=== PATIENT | female | born 1975 | race Caucasian/White ===

== ENCOUNTER 2017-05-17 08:35 | Emergency (ER) | payer OTHER ==
[2017-05-17] MEDS ORDERED: METHYLPREDNISOLONE 125 MG INJ ONE (09:37)
[2017-05-17] MEDS ORDERED: TRAMADOL HCL 50 MG TAB ONE (09:38)
--- NOTE | 2017-05-17 09:53 | RAD REPORT ---
EXAM DESCRIPTION: CT - Head Brain Wo Cont - 05/17/2017 9:39 am CLINICAL HISTORY: Headache COMPARISON: November 2016 TECHNIQUE: Computed axial tomography of the head was obtained. IV contrast was not requested. All CT scans are performed using dose optimization technique as appropriate and may include automated exposure control or mA/KV adjustment according to patient size. FINDINGS: An intracranial bleed is not seen . The ventricles are normal in caliber. No extra-axial fluid collection is noted. Moderate low-density within periventricular, deep and subco rtical white matter likely representing demyelinating plaques related to multiple sclerosis Moderate opacification of the ethmoid sinus is present. The mastoids are clear IMPRESSION: No acute intracranial abnormality is seen. If patient's symptoms persist MRI of the bra in would be recommended. Moderate chronic ethmoid sinusitis
--- NOTE | 2017-05-17 11:38 | ER ---
Nurse's Notes [facility] Name: Tana Rao Age: 42 yrs Sex: Female : 1975 Arrival Date: 05/17/2017 Time: 08:45 Bed 10 Private MD: Diagnosis: Headache Presentation: 05/17 08:45 Presenting complaint: EMS states: called for a pt complaining of headache, pressure hj like pain in the R scientology down to the neck, pressure behind the eye, denies nausea and vomiting; BP- 127/88; HR- 77; O2 sat- 100%; pain is 10/10; A\T\Ox4; denies tingling and numbness;. Transition of care: patient was not received from another setting of care. Onset of symptoms was May 17, 2017. Care prior to arrival: None. 08:45 Method Of Arrival: Ambulatory 08:45 Acuity: AMY 3 hj Triage Assessment: 08:52 Headache History: The patient has had previous headaches. General: Appears in no hj apparent distress. uncomfortable, Behavior is cooperative, appropriate for age, anxious, crying. Pain: Complains of pain in left base of the skull and right temporal area Pain currently is 10 out of 10 on a pain scale. Pain began Also complains of inability to work, inability to perform activities of daily living. Neuro: Level of Consciousness is awake, alert, obeys commands, Oriented to person, place, time, situation, Appropriate for age. 08:52 EENT: No signs and/or symptoms were reported regarding the EENT system. Cardiovascular: hj Capillary refill < 3 seconds Patient's skin is warm and dry. Respiratory: Airway is patent Respiratory effort is even, unlabored, Respiratory pattern is regular, symmetrical. GI: No signs and/or symptoms were reported involving the gastrointestinal system. : No signs and/or symptoms were reported regarding the genitourinary system. Derm: No signs and/or symptoms reported regarding the dermatologic system. Musculoskeletal: No signs and/or symptoms reported regarding the musculoskeletal system. 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 hj Historical: - Allergies: 08:51 Demerol; hj 08:51 GABAPENTIN; hj 08:51 ketorolac tromethamine; hj 08:51 Lyrica; hj 08:51 pregabalin; hj 08:51 sulfamethoxazole-trimethoprim; hj 08:51 Tramadol HCl; hj - Home Meds: 08:51 amitriptyline 25 mg Oral tab 1 tab once daily [Active]; clorazepate dipotassium Oral hj [Active]; Cyclobenzaprine Oral [Active]; esomeprazole magnesium Oral [Active]; gabapentin Oral [Active]; Mirtazapine Oral [Active]; tizanidine Oral [Active]; - PMHx: 08:51 Anxiety; Bipolar disorder; BRAIN , MUSCLE, DISC, NERVE, AND AUTOIMMUNE DISEASE; Chronic hj pain; Degenerative disc disease; Depression; Fibromyalgia; Hypothyroidism; Multiple Sclerosis; Rheumatoid Arthritis; UTI; - PSHx: 08:51 Hysterectomy; hj - Immunization history:: Adult Immunizations up to date. - Social history:: Smoking status: Patient/guardian denies using tobacco, Patient/guardian denies using alcohol. Screenin:54 Abuse screen: Denies threats or abuse. Denies injuries from another. Nutritional hj screening: No deficits noted. Tuberculosis screening: No symptoms or risk factors identified. Fall Risk None identified. Assessment: 08:57 Reassessment: see triage assessment;. hj 09:34 Reassessment: Patient and/or family updated on plan of care and expected duration. Pain hj level reassessed. Patient is alert, oriented x 3, equal unlabored respirations, skin warm/dry/pink. wheeled to CT;. 10:30 General: Appears in no apparent distress. uncomfortable, Behavior is calm, cooperative, aj1 appropriate for age. Pain: Complains of pain in right temporal area Pain does not radiate. Pain currently is 7 out of 10 on a pain scale. 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 Full function Gait is steady, Reports headache. Cardiovascular: Patient's skin is warm and dry. Respiratory: Airway is patent Respiratory effort is even, unlabored, Respiratory pattern is regular, symmetrical. GI: No signs and/or symptoms were reported involving the gastrointestinal system. : No signs and/or symptoms were reported regarding the genitourinary system. EENT: No signs and/or symptoms were reported regarding the EENT system. Derm: No signs and/or symptoms reported regarding the dermatologic system. Skin is pink, warm \T\ dry. normal. Musculoskeletal: No signs and/or symptoms reported regarding the musculoskeletal system. Circulation, motion, and sensation intact. 11:27 Reassessment: Patient appears in no apparent distress at this time. Patient and/or iw family updated on plan of care and expected duration. Pain level reassessed. pt ambulated from ER bed 15 to room 10, steady gait. 11:50 Reassessment: Patient appears in no apparent distress at this time. Patient and/or iw family updated on plan of care and expected duration. Pain level reassessed. Vital Signs: 08:55 BP 137 / 102; Pulse 77; Resp 18; Temp 98.1(TE); Pulse Ox 100% on R/A; Weight 54.43 kg; hj Height 5 ft. 7 in. (170.18 cm); Pain 10/10; 10:49 BP 149 / 98; Pulse 58; Resp 15; Pulse Ox 100% on R/A; mh5 08:55 Body Mass Index 18.79 (54.43 kg, 170.18 cm) ED Course: 08:45 Patient arrived in ED. hj 08:45 Mohsen Carlton MD is Attending Physician. kdr 08:48 Triage completed. hj 08:54 Arm band placed on right wrist. hj 08:55 Patient has correct armband on for positive identification. Bed in low position. Call light in reach. Side rails up X 1. 09:16 Yony Archuleta RN is Primary Nurse. hj 09:38 CT completed. Patient tolerated procedure well. Patient moved to CT via wheelchair. jg1 Patient moved back from CT. 11:27 Primary Nurse role handed off by Yony Archuleta RN iw 11:27 Alisa Edmondson, ADAM is Primary Nurse. iw 11:54 No provider procedures requiring assistance completed. Patient did not have IV access iw during this emergency room visit. Administered Medications: 09:14 Drug: SOLU-Medrol 125 mg Route: IM; Site: right deltoid; hj 09:23 Follow up: Response: No adverse reaction hj 09:27 Not Given (Patient Refused; allergic to the med; notified): traMADol 100 mg PO once hj 11:54 Drug: Leonidas 10 mg-325 mg 1 tabs Route: PO; iw Outcome: 11:37 Discharge ordered by . kdr 11:54 Discharged to home ambulatory. iw 11:54 Condition: good 11:54 Discharge instructions given to patient, Instructed on discharge instructions, follow up and referral plans. medication usage, Demonstrated understanding of instructions, follow-up care, medications, Prescriptions given X 1. 11:55 Patient left the ED. iw Signatures: Jami Clayton RN RN aj1 Mohsen Carlton MD MD kdr Garcia, Jessica jg1 Williams, Irene, RN RN Yony Archuleta RN RN Myriam [facility]
--- NOTE | 2017-05-17 11:38 | EDPHYS ---
Physician Documentation [facility] Name: Tana Rao Age: 42 yrs Sex: Female : 1975 Arrival Date: 05/17/2017 Time: 08:45 Bed 10 Private MD: ED Physician Mohsen Carlton HPI: 05/17 12:14 This 42 yrs old Female presents to ER via Ambulatory with complaints of kdr Headache. 12:14 The patient complains of pain to the right eye, right confucianism, right temporal area and kdr right side of forehead. The patient describes the headache as aching, constant, a pressure, unrelenting. Onset: The symptoms/episode began/occurred gradually, 3 day(s) ago. Associated signs and symptoms: Pertinent positives: blurred vision, Pertinent negatives: altered mental status, dizziness, fever, malaise, nausea, neck stiffness, paresthesias, Photophobia rash, sinus congestion, sinus tenderness, weakness, vertigo. Severity of symptoms: At its worst the pain was moderate, just prior to arrival, in the emergency department the pain is unchanged. Headache History: The patient has had previous headaches and this one is similar to previous episodes. The symptoms are alleviated by nothing. the symptoms are aggravated by lights, movement, noise. The patient has experienced similar episodes in the past, multiple times. The patient has not recently seen a physician. 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 hj Historical: - Allergies: 08:51 Demerol; hj 08:51 GABAPENTIN; hj 08:51 ketorolac tromethamine; hj 08:51 Lyrica; hj 08:51 pregabalin; hj 08:51 sulfamethoxazole-trimethoprim; hj 08:51 Tramadol HCl; hj - Home Meds: 08:51 amitriptyline 25 mg Oral tab 1 tab once daily [Active]; clorazepate dipotassium Oral hj [Active]; Cyclobenzaprine Oral [Active]; esomeprazole magnesium Oral [Active]; gabapentin Oral [Active]; Mirtazapine Oral [Active]; tizanidine Oral [Active]; - PMHx: 08:51 Anxiety; Bipolar disorder; BRAIN , MUSCLE, DISC, NERVE, AND AUTOIMMUNE DISEASE; Chronic hj pain; Degenerative disc disease; Depression; Fibromyalgia; Hypothyroidism; Multiple Sclerosis; Rheumatoid Arthritis; UTI; - PSHx: 08:51 Hysterectomy; hj - Immunization history:: Adult Immunizations up to date. - Social history:: Smoking status: Patient/guardian denies using tobacco, Patient/guardian denies using alcohol. ROS: 12:14 Constitutional: Negative for fever, chills, and weight loss, Eyes: Negative for injury, kdr pain, redness, and discharge, ENT: Negative for injury, pain, and discharge, Neck: Negative for injury, pain, and swelling, Cardiovascular: Negative for chest pain, palpitations, and edema, Respiratory: Negative for shortness of breath, cough, wheezing, and pleuritic chest pain, Abdomen/GI: Negative for abdominal pain, nausea, vomiting, diarrhea, and constipation, Back: Negative for injury and pain, : Negative for injury, bleeding, discharge, and swelling, MS/Extremity: Negative for injury and deformity, Skin: Negative for injury, rash, and discoloration, Psych: Negative for depression, anxiety, suicide ideation, homicidal ideation, and hallucinations, Allergy/Immunology: Negative for hives, rash, and allergies, Endocrine: Negative for neck swelling, polydipsia, polyuria, polyphagia, and marked weight changes, Hematologic/Lymphatic: Negative for swollen nodes, abnormal bleeding, and unusual bruising. 12:14 Neuro: Positive for headache, Negative for altered mental status, dizziness, gait disturbance, loss of consciousness, numbness, seizure activity, speech changes, syncope, near syncope, tingling, tinnitus, tremor, visual changes, weakness. Exam: 12:14 Constitutional: This is a well developed, well nourished patient who is awake, alert, kdr and in no acute distress. Head/Face: Normocephalic, atraumatic. Eyes: Pupils equal round and reactive to light, extra-ocular motions intact. Lids and lashes normal. Conjunctiva and sclera are non-icteric and not injected. Cornea within normal limits. Periorbital areas with no swelling, redness, or edema. Neck: Trachea midline, no thyromegaly or masses palpated, and no cervical lymphadenopathy. Supple, full range of motion without nuchal rigidity, or vertebral point tenderness. No Meningismus. Chest/axilla: Normal chest wall appearance and motion. Nontender with no deformity. No lesions are appreciated. Cardiovascular: Regular rate and rhythm with a normal S1 and S2. No gallops, murmurs, or rubs. Normal PMI, no JVD. No pulse deficits. Respiratory: Lungs have equal breath sounds bilaterally, clear to auscultation and percussion. No rales, rhonchi or wheezes noted. No increased work of breathing, no retractions or nasal flaring. Abdomen/GI: Soft, non-tender, with normal bowel sounds. No distension or tympany. No guarding or rebound. No evidence of tenderness throughout. Back: No spinal tenderness. No costovertebral tenderness. Full range of motion. Skin: Warm, dry with normal turgor. Normal color with no rashes, no lesions, and no evidence of cellulitis. MS/ Extremity: Pulses equal, no cyanosis. Neurovascular intact. Full, normal range of motion. Neuro: Awake and alert, GCS 15, oriented to person, place, time, and situation. Cranial nerves II-XII grossly intact. Motor strength 5/5 in all extremities. Sensory grossly intact. Cerebellar exam normal. Normal gait. Psych: Awake, alert, with orientation to person, place and time. Behavior, mood, and affect are within normal limits. Vital Signs: 08:55 BP 137 / 102; Pulse 77; Resp 18; Temp 98.1(TE); Pulse Ox 100% on R/A; Weight 54.43 kg; Height 5 ft. 7 in. (170.18 cm); Pain 10/10; 10:49 BP 149 / 98; Pulse 58; Resp 15; Pulse Ox 100% on R/A; mh5 08:55 Body Mass Index 18.79 (54.43 kg, 170.18 cm) MDM: 11:37 Patient medically screened. kdr 12:14 Data reviewed: vital signs, nurses notes, radiologic studies. Counseling: I had a kdr detailed discussion with the patient and/or guardian regarding: the historical points, exam findings, and any diagnostic results supporting the discharge/admit diagnosis, radiology results, the need for outpatient follow up. 05/17 09:14 Order name: CT Head Brain wo Cont kdr 05/17 09:53 Order name: CT; Complete Time: 10:15 EDMS Administered Medications: 09:14 Drug: SOLU-Medrol 125 mg Route: IM; Site: right deltoid; 09:23 Follow up: Response: No adverse reaction 09:27 Not Given (Patient Refused; allergic to the med; notified): traMADol 100 mg PO once hj 11:54 Drug: [place] 10 mg-325 mg 1 tabs Route: PO; Disposition: 05/17/17 11:37 Discharged to Home. Impression: Headache. - Condition is Stable. - Discharge Instructions: General Headache Without Cause. - Prescriptions for Ibuprofen 800 mg Oral Tablet - take 1 tablet by ORAL route every 8 hours As needed take with food; 12 tablet. - Medication Reconciliation Form, Thank You Letter, Antibiotic Education, Prescription Opioid Use form. - Follow up: Private Physician; When: 2 - 3 days; Reason: If symptoms return, Further diagnostic work-up, Recheck today's complaints, Continuance of care, Re-evaluation by your physician. - Problem is an acute exacerbation. - Symptoms have improved. Signatures: Dispatcher [employer] EDMS Mohsen Carlton MD MD kdr Williams, Irene, ADAM RN Yony Archuleta RN RN
[2017-05-17 12:06] VITALS: TEMP 98.1; O2SAT 100
[2017-05-17 12:08] VITALS: BP 149/98
[2017-05-17] MEDS ORDERED: HYDROCODONE/APAP 10/325 TAB ONE (12:08)
== END 2017-05-17 11:55 | disposition home or self-care (01) ==
LOC: ER 08:35
DX: R51 Headache (principal); F31.9 Bipolar disorder, unspecified; F41.9 Anxiety disorder, unspecified; Z88.2 Allergy status to sulfonamides; Z88.5 Allergy status to narcotic agent; Z88.8 Allergy status to other drugs, medicaments and biological substances
CPT/HCPCS: 70450; 96372; 99284; J2930

== ENCOUNTER 2017-06-13 20:52 | Emergency (ER) | payer OTHER ==
--- NOTE | 2017-06-13 21:43 | RAD REPORT ---
EXAM DESCRIPTION: CT - Head Brain Wo Cont - 06/13/2017 9:33 pm CLINICAL HISTORY: Headache, altered consciousness. COMPARISON: 05/17/2017 TECHNIQUE: All CT scans are performed using dose optimization technique as appropriate and may inclu de automated exposure control or mA/KV adjustment according to patient size. FINDINGS: No intracranial hemorrhage, hydrocephalus or extra-axial fluid collection.No areas of brai n edema or evidence of midline shift. Mild mucosal thickening seen in the ethmoid and sphenoid sinuses. The paranasal sinuses and mastoids otherwise clear. The calvarium is intact. IMPRESSION: No acute intracranial abnormality.
[2017-06-13] MEDS ORDERED: NA CHLORIDE 0.9% 1,000 ML ONE (22:01)
[2017-06-13 22:31] LABS: Absolute Lymphocytes (CBC) 1.7 K/uL (0.7-4.9); Absolute Monocytes 0.4 K/uL (0.1-1.3); Absolute Neutrophil 4.1 K/uL (1.8-8.0); Basophils % 0.7 % (0-1.3); Eosinophils % 5.1 % (0-4.4); Lymphocytes % 25.4 % (15.3-44.8); MCH 23.8 pg (27.0-35.0); MCV 73.1 fL (80-100); MPV 7.7 fL (7.6-11.3); Monocytes % 6.3 % (3.3-12.3); RBC Red Blood Cell Count 5.47 M/uL (3.86-4.86)
[2017-06-13 22:39] LABS: Bicarbonate 32 mEq/L (21-31); Glucose Level 110 mg/dL (65-120); Potassium 4.1 mEq/L (3.6-5.0); Sodium Level 141 mEq/L (135-145)
[2017-06-13 22:45] LABS: ALT/SGPT 14 IU/L (10-60); AST/SGOT 20 IU/L (10-42); Albumin 3.9 g/dL (3.2-5.5); Alkaline Phosphatase 95 IU/L (42-121); BUN Blood Urea Nitrogen 10 mg/dL (6-20); Bilirubin Direct < 0.1 mg/dL (0-0.2); Bilirubin Total 0.4 mg/dL (0.3-1.2); Glomerular Filtration Rate 77 mL/min (=/>90)
[2017-06-13 22:46] LABS: Protime INR 0.94
[2017-06-13 23:04] LABS: Alcohol Serum/Plasma < 10 mg/dl; Salicylates Level < 4.0 mg/dl (<30)
--- NOTE | 2017-06-13 23:33 | EDPHYS ---
Physician Documentation [facility] Name: Tana Rao Age: 42 yrs Sex: Female : 1975 Arrival Date: 06/13/2017 Time: 20:54 Bed 23 Private MD: ED Physician Celestine Tafoya HPI: 06/13 21:13 This 42 yrs old Female presents to ER via EMS with complaints of headache and angela syncope. 21:13 The patient complains of pain to the forehead, left temporal area and right temporal angela area. The patient describes the headache as aching. Onset: The symptoms/episode began/occurred just prior to arrival. hx ms. The patient presents with trouble concentrating. Onset: The symptoms/episode began/occurred 2 day(s) ago. Possible causes: unknown. Associated signs and symptoms: The patient has no apparent associated signs or symptoms. Severity of symptoms: At its worst the pain was mild, moderate, in the emergency department the pain is unchanged. Headache History: The patient has had previous headaches and this one is similar to previous episodes. 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 - Hysterectomy tl3 Historical: - Allergies: 21:10 Demerol; tl3 21:10 GABAPENTIN; tl3 21:10 ketorolac tromethamine; tl3 21:10 Lyrica; tl3 21:10 pregabalin; tl3 21:10 sulfamethoxazole-trimethoprim; tl3 21:10 Tramadol HCl; tl3 - Home Meds: 21:10 amitriptyline 25 mg Oral tab 1 tab once daily [Active]; clorazepate dipotassium Oral tl3 [Active]; Cyclobenzaprine Oral [Active]; esomeprazole magnesium Oral [Active]; gabapentin Oral [Active]; Mirtazapine Oral [Active]; tizanidine Oral [Active]; - PMHx: 21:10 Anxiety; Bipolar disorder; BRAIN , MUSCLE, DISC, NERVE, AND AUTOIMMUNE DISEASE; Chronic tl3 pain; Degenerative disc disease; Depression; Fibromyalgia; Hypothyroidism; Multiple Sclerosis; Rheumatoid Arthritis; UTI; - PSHx: 21:10 Hysterectomy; tl3 - Immunization history:: Adult Immunizations unknown. - Social history:: Smoking status: unknown Patient/guardian denies using street drugs. - Family history:: not pertinent. ROS: 21:13 Constitutional: Negative for fever, chills, and weight loss, Eyes: Negative for injury, angela pain, redness, and discharge, ENT: Negative for injury, pain, and discharge, Neck: Negative for injury, pain, and swelling, Cardiovascular: Negative for chest pain, palpitations, and edema, Respiratory: Negative for shortness of breath, cough, wheezing, and pleuritic chest pain, Abdomen/GI: Negative for abdominal pain, nausea, vomiting, diarrhea, and constipation, Back: Negative for injury and pain, : Negative for injury, bleeding, discharge, and swelling, MS/Extremity: Negative for injury and deformity, Skin: Negative for injury, rash, and discoloration, Psych: Negative for depression, anxiety, suicide ideation, homicidal ideation, and hallucinations, Allergy/Immunology: Negative for hives, rash, and allergies, Endocrine: Negative for neck swelling, polydipsia, polyuria, polyphagia, and marked weight changes. 21:13 Neuro: Positive for headache, weakness. Exam: 21:13 Constitutional: This is a well developed, well nourished patient who is awake, alert, angela and in no acute distress. Head/Face: Normocephalic, atraumatic. Eyes: Pupils equal round and reactive to light, extra-ocular motions intact. Lids and lashes normal. Conjunctiva and sclera are non-icteric and not injected. Cornea within normal limits. Periorbital areas with no swelling, redness, or edema. ENT: Nares patent. No nasal discharge, no septal abnormalities noted. Tympanic membranes are normal and external auditory canals are clear. Oropharynx with no redness, swelling, or masses, exudates, or evidence of obstruction, uvula midline. Mucous membranes moist. Neck: Trachea midline, no thyromegaly or masses palpated, and no cervical lymphadenopathy. Supple, full range of motion without nuchal rigidity, or vertebral point tenderness. No Meningismus. Chest/axilla: Normal chest wall appearance and motion. Nontender with no deformity. No lesions are appreciated. Cardiovascular: Regular rate and rhythm with a normal S1 and S2. No gallops, murmurs, or rubs. Normal PMI, no JVD. No pulse deficits. Respiratory: Lungs have equal breath sounds bilaterally, clear to auscultation and percussion. No rales, rhonchi or wheezes noted. No increased work of breathing, no retractions or nasal flaring. Abdomen/GI: Soft, non-tender, with normal bowel sounds. No distension or tympany. No guarding or rebound. No evidence of tenderness throughout. Back: No spinal tenderness. No costovertebral tenderness. Full range of motion. Skin: Warm, dry with normal turgor. Normal color with no rashes, no lesions, and no evidence of cellulitis. MS/ Extremity: Pulses equal, no cyanosis. Neurovascular intact. Full, normal range of motion. 21:13 Neuro: Orientation: is normal, appropriate for stated age, no acute changes, Mentation: is normal, appropriate for stated age, no acute changes, Memory: immediate memory is intact, remote memory is intact. recent memory is intact, Cranial nerves: is grossly normal based on the patient's age, no acute changes, CN I not tested, Cerebellar function: unable to test, Motor: strength is normal, Gait: not tested. seizure activity, is not displayed by the patient. Vital Signs: 21:10 BP 133 / 94; Pulse 84; Resp 18; Pulse Ox 100% ; tl3 22:23 BP 129 / 99; Pulse 81; Resp 18; Pulse Ox 100% ; tl3 23:59 BP 128 / 87; Pulse 94; Resp 18; Pulse Ox 100% on R/A; tl3 06/14 01:04 BP 128 / 74; Pulse 82; Resp 16; Pulse Ox 99% ; tl3 MDM: 06/13 20:55 Patient medically screened. [facility] 21:13 Data reviewed: vital signs, nurses notes, lab test result(s), EKG, radiologic studies, [facility] CT scan. 06/13 21:13 Order name: Acetaminophen; Complete Time: 23:29 [facility] 06/13 21:13 Order name: Basic Metabolic Panel; Complete Time: 23:29 [facility] 06/13 21:13 Order name: CBC with Diff; Complete Time: 23:29 [facility] 06/13 21:13 Order name: ETOH Level; Complete Time: 23:29 [facility] 06/13 21:13 Order name: Hepatic Function; Complete Time: 23:29 [facility] 06/13 21:13 Order name: PT-INR; Complete Time: 23:29 [facility] 06/13 21:13 Order name: Ptt, Activated; Complete Time: 23:29 [facility] 06/13 21:13 Order name: Salicylate; Complete Time: 23:29 [facility] 06/13 21:13 Order name: Urine Drug Screen [facility] 06/13 21:13 Order name: CT Head Brain wo Cont; Complete Time: 22:31 [facility] 06/14 00:20 Order name: Urine Dipstick--Ancillary (enter results) em1 06/13 21:13 Order name: EKG; Complete Time: 21:14 [facility] 06/13 21:13 Order name: EKG - Nurse/Tech; Complete Time: 22:21 [facility] 06/13 21:13 Order name: IV Saline Lock; Complete Time: 22:00 [facility] 06/13 21:13 Order name: Labs collected and sent; Complete Time: 22:00 [facility] 06/13 21:13 Order name: Urine Dipstick-Ancillary (obtain specimen); Complete Time: 00:20 [facility] Administered Medications: 22:20 Drug: NS 0.9% 1000 ml Route: IV; Rate: 1 bolus; Site: right wrist; tl3 06/14 00:00 Follow up: IV Status: Completed infusion; IV Intake: 1000ml tl3 01:02 Drug: Rocephin - (cefTRIAXone) 1 grams Route: IVPB; Infused Over: 5 mins; Site: right tl3 wrist; 01:12 Follow up: IV Status: Completed infusion; IV Intake: 20ml tl3 Disposition: 06/13/17 23:32 Discharged to Home. Impression: Headache, Weakness, Multiple sclerosis, Urinary tract infection, site not specified. - Condition is Stable. - Discharge Instructions: General Headache Without Cause, Bipolar Disorder, Urinary Tract Infection, Weakness, Fatigue, Weakness, [id number], General Headache Without Cause, [id number]. - Prescriptions for Motrin IB 200 mg Oral Tablet - take 2 tablet by ORAL route every 6 hours As needed as needed with food; 2 tablet. Cipro 250 mg Oral Tablet - take 1 tablet by ORAL route every 12 hours; 14 tablet. - Medication Reconciliation Form, Thank You Letter, Antibiotic Education, Prescription Opioid Use form. - Follow up: Private Physician; When: 2 - 3 days; Reason: Recheck today's complaints, Continuance of care, Re-evaluation by your physician. Follow up: Ivan Cai; When: 2 - 3 days; Reason: Recheck today's complaints, Re-evaluation by your physician. - Problem is new. - Symptoms have improved. Signatures: Dispatcher [employer] EDMS Michelet, Celestine, MD MD angela [place], Karli, RN RN tl3
--- NOTE | 2017-06-13 23:33 | ER ---
Nurse's Notes [facility] Name: Tana Rao Age: 42 yrs Sex: Female : 1975 Arrival Date: 06/13/2017 Time: 20:54 Bed 23 Private MD: Diagnosis: Headache;Weakness;Multiple sclerosis;Urinary tract infection, site not specified Presentation: 06/13 20:00 Presenting complaint: EMS states: pt was found on the sidewalk outside of an elementary [employer] [place], pt stated that she had right sided head pain that now has become generalized body pain. Transition of care: patient was not received from another setting of care. Onset of symptoms was June 13, 2017. Initial Sepsis Screen: Does the patient meet any 2 criteria? No. Patient's initial sepsis screen is negative. Does the patient have a suspected source of infection? No. Patient's initial sepsis screen is negative. Care prior to arrival: None. 20:00 Method Of Arrival: EMS: [facility] tl3 20:00 Acuity: AMY 3 tl3 Triage Assessment: 21:10 General: Appears uncomfortable, slender, unkempt, Behavior is anxious, restless. Pain: tl3 Complains of pain in generalized body pain. EENT: No signs and/or symptoms were reported regarding the EENT system. Neuro: Level of Consciousness is awake, alert, obeys commands. Cardiovascular: Heart tones S1 S2 present. Respiratory: Airway is patent Trachea midline Respiratory effort is even, unlabored, Respiratory pattern is regular, symmetrical. GI: No signs and/or symptoms were reported involving the gastrointestinal system. : No signs and/or symptoms were reported regarding the genitourinary system. Derm: No signs and/or symptoms reported regarding the dermatologic system. Derm: palms of hands are dirty. Musculoskeletal: No signs and/or symptoms reported regarding the musculoskeletal system. 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 - Hysterectomy tl3 Historical: - Allergies: 21:10 Demerol; tl3 21:10 GABAPENTIN; tl3 21:10 ketorolac tromethamine; tl3 21:10 Lyrica; tl3 21:10 pregabalin; tl3 21:10 sulfamethoxazole-trimethoprim; tl3 21:10 Tramadol HCl; tl3 - Home Meds: 21:10 amitriptyline 25 mg Oral tab 1 tab once daily [Active]; clorazepate dipotassium Oral tl3 [Active]; Cyclobenzaprine Oral [Active]; esomeprazole magnesium Oral [Active]; gabapentin Oral [Active]; Mirtazapine Oral [Active]; tizanidine Oral [Active]; - PMHx: 21:10 Anxiety; Bipolar disorder; BRAIN , MUSCLE, DISC, NERVE, AND AUTOIMMUNE DISEASE; Chronic tl3 pain; Degenerative disc disease; Depression; Fibromyalgia; Hypothyroidism; Multiple Sclerosis; Rheumatoid Arthritis; UTI; - PSHx: 21:10 Hysterectomy; tl3 - Immunization history:: Adult Immunizations unknown. - Social history:: Smoking status: unknown Patient/guardian denies using street drugs. - Family history:: not pertinent. Screenin:24 Abuse screen: Denies threats or abuse. Nutritional screening: No deficits noted. tl3 Tuberculosis screening: No symptoms or risk factors identified. Fall Risk None identified. Assessment: 21:16 Reassessment: No changes from previously documented assessment. Patient is alert, tl3 oriented x 3, equal unlabored respirations, skin warm/dry/pink. Dr Tafyoa at bedside discussing POC. 22:24 Reassessment: No changes from previously documented assessment. Patient is alert, tl3 oriented x 3, equal unlabored respirations, skin warm/dry/pink. pt eating and drinking without difficulty awaiting labs. 23:59 Reassessment: Patient appears in no apparent distress at this time. No changes from tl3 previously documented assessment. Patient and/or family updated on plan of care and expected duration. Pain level reassessed. Patient is alert, oriented x 3, equal unlabored respirations, skin warm/dry/pink. pt still unable to void, says that she "cant get urine out". 06/14 01:04 Reassessment: Patient appears in no apparent distress at this time. No changes from tl3 previously documented assessment. Patient and/or family updated on plan of care and expected duration. Pain level reassessed. Patient is alert, oriented x 3, equal unlabored respirations, skin warm/dry/pink. pt sleeping, in no distress. Vital Signs: 06/13 21:10 BP 133 / 94; Pulse 84; Resp 18; Pulse Ox 100% ; tl3 22:23 BP 129 / 99; Pulse 81; Resp 18; Pulse Ox 100% ; tl3 23:59 BP 128 / 87; Pulse 94; Resp 18; Pulse Ox 100% on R/A; tl3 06/14 01:04 BP 128 / 74; Pulse 82; Resp 16; Pulse Ox 99% ; tl3 ED Course: 06/13 20:54 Patient arrived in ED. em1 20:55 Celestine Tafoya MD is Attending Physician. angela 21:05 Karli Diallo, RN is Primary Nurse. tl3 21:08 Triage completed. tl3 21:10 Arm band placed on right wrist. tl3 21:[address] via stretcher. nj 21:34 CT Head Brain wo Cont In Process Unspecified. EDMS 22:22 Resting quietly. Awaiting lab results. tl3 22:22 Patient has correct armband on for positive identification. Placed in gown. Bed in low tl3 position. Call light in reach. Side rails up X 1. Adult w/ patient. Warm blanket given. 22:22 No provider procedures requiring assistance completed. Initial lab(s) drawn, by oh, tl3 sent to lab. Inserted saline lock: 22 gauge in right wrist, using aseptic technique. Blood collected. 23:32 Ivan Cai MD is Referral Physician. angela 23:59 Pulse ox on. NIBP on. tl3 23:59 EKG done, by ED staff, reviewed by Celestine Tafoya MD. tl3 06/14 01:04 IV discontinued, intact, bleeding controlled, No redness/swelling at site. Pressure tl3 dressing applied. Administered Medications: 06/13 22:20 Drug: NS 0.9% 1000 ml Route: IV; Rate: 1 bolus; Site: right wrist; tl3 06/14 00:00 Follow up: IV Status: Completed infusion; IV Intake: 1000ml tl3 01:02 Drug: Rocephin - (cefTRIAXone) 1 grams Route: IVPB; Infused Over: 5 mins; Site: right tl3 wrist; 01:12 Follow up: IV Status: Completed infusion; IV Intake: 20ml tl3 Intake: 00:00 IV: 1000ml; Total: 1000ml. tl3 01:12 IV: 20ml; Total: 1020ml. tl3 Outcome: 06/13 23:32 Discharge ordered by . angela 06/14 01:10 Discharged to home ambulatory. tl3 Condition: stable Discharge instructions given to patient, Instructed on discharge instructions, follow up and referral plans. medication usage, Demonstrated understanding of instructions, follow-up care, Prescriptions given X 2. 01:12 Patient left the ED. tl3 Signatures: Dispatcher [employer] Celestine Pritchard MD MD cha Martinez, Maximo em1 Shaun Lundberg Tammy, RN RN tl3
[2017-06-14] MEDS ORDERED: CEFTRIAXONE 1000 MG/VIAL ONE (00:49)
[2017-06-14 01:08] LABS: Barbiturates NEGATIVE; Benzodiazepines NEGATIVE; Cocaine NEGATIVE; Opiates NEGATIVE; Phencyclidine NEGATIVE; THC Cannibis NEGATIVE
[2017-06-14 01:28] VITALS: BP 128/74; O2SAT 99
[2017-06-14 01:28] LABS: METHAMPHETAM POSITIVE
[2017-06-14 02:59] LABS: Urine Blood TRACE (NEG); Urine Glucose NEGATIVE (NEG); Urine Protein NEGATIVE (NEG)
--- NOTE | 2017-06-14 09:49 | EKG ---
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
== END 2017-06-14 01:12 | disposition home or self-care (01) ==
LOC: ER 20:52
DX: N39.0 Urinary tract infection, site not specified (principal); R53.1 Weakness; G35 Multiple sclerosis; F31.9 Bipolar disorder, unspecified; E03.9 Hypothyroidism, unspecified; Z88.2 Allergy status to sulfonamides; Z88.5 Allergy status to narcotic agent; Z88.6 Allergy status to analgesic agent; Z88.8 Allergy status to other drugs, medicaments and biological substances
CPT/HCPCS: 36415; 70450; 80048; 80076; 80307; 80320; 80329; 81003; 85025; 85610; 85730; 93005; 96361; 96374; 99285; J7030

== ENCOUNTER 2017-06-14 16:46 | Emergency (ER) | payer OTHER ==
[2017-06-14] MEDS ORDERED: HYDROCODONE/APAP 10/325 TAB ONE (18:07)
--- NOTE | 2017-06-14 19:03 | EDPHYS ---
Physician Documentation [facility] Name: Tana Rao Age: 42 yrs Sex: Female : 1975 Arrival Date: 06/14/2017 Time: 16:49 Bed 26 Private MD: [facility] ED Physician Waldo Waters HPI: 06/14 19:15 This 42 yrs old Female presents to ER via EMS with complaints of Headache. pm1 19:15 The patient complains of pain to the forehead, right pentecostalism and left pentecostalism. The pm1 patient describes the headache as aching, constant. Onset: The symptoms/episode began/occurred today. Associated signs and symptoms: Pertinent negatives: fever, nausea, vomiting. Severity of symptoms: in the emergency department the pain is actually worse. Headache History: The patient has had previous headaches and this one is similar to previous episodes. The symptoms are alleviated by nothing. the symptoms are aggravated by nothing. The patient has experienced similar episodes in the past, multiple times. The patient has been recently seen at the [facility] Emergency Department, today, for similar complaints. 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 hj Historical: - Allergies: 17:00 Demerol; hj 17:00 GABAPENTIN; hj 17:00 ketorolac tromethamine; hj 17:00 Lyrica; hj 17:00 pregabalin; hj 17:00 sulfamethoxazole-trimethoprim; hj 17:00 Tramadol HCl; hj - Home Meds: 17:00 amitriptyline 25 mg Oral tab 1 tab once daily [Active]; clorazepate dipotassium Oral hj [Active]; Cyclobenzaprine Oral [Active]; esomeprazole magnesium Oral [Active]; gabapentin Oral [Active]; Mirtazapine Oral [Active]; tizanidine Oral [Active]; - PMHx: 17:00 Anxiety; Bipolar disorder; BRAIN , MUSCLE, DISC, NERVE, AND AUTOIMMUNE DISEASE; Chronic hj pain; Degenerative disc disease; Depression; Fibromyalgia; Hypothyroidism; Multiple Sclerosis; Rheumatoid Arthritis; UTI; - PSHx: 17:00 Hysterectomy; hj - Immunization history:: Flu vaccine is not up to date. - Social history:: Smoking status: Patient uses tobacco products. ROS: 19:15 Constitutional: Negative for fever, chills, and weight loss, Eyes: Negative for injury, pm1 pain, redness, and discharge, ENT: Negative for injury, pain, and discharge, Neck: Negative for injury, pain, and swelling, Cardiovascular: Negative for chest pain, palpitations, and edema, Respiratory: Negative for shortness of breath, cough, wheezing, and pleuritic chest pain, Abdomen/GI: Negative for abdominal pain, nausea, vomiting, diarrhea, and constipation, Back: Negative for injury and pain, MS/Extremity: Negative for injury and deformity, Skin: Negative for injury, rash, and discoloration. 19:15 Neuro: Positive for headache, Negative for numbness. Exam: 19:15 Constitutional: This is a well developed, well nourished patient who is awake, alert, pm1 and in no acute distress. Head/Face: Normocephalic, atraumatic. Eyes: Pupils equal round and reactive to light, extra-ocular motions intact. Lids and lashes normal. Conjunctiva and sclera are non-icteric and not injected. Cornea within normal limits. Periorbital areas with no swelling, redness, or edema. ENT: Nares patent. No nasal discharge, no septal abnormalities noted. Tympanic membranes are normal and external auditory canals are clear. Oropharynx with no redness, swelling, or masses, exudates, or evidence of obstruction, uvula midline. Mucous membranes moist. Neck: Trachea midline, no thyromegaly or masses palpated, and no cervical lymphadenopathy. Supple, full range of motion without nuchal rigidity, or vertebral point tenderness. No Meningismus. Chest/axilla: Normal chest wall appearance and motion. Nontender with no deformity. No lesions are appreciated. Cardiovascular: Regular rate and rhythm with a normal S1 and S2. No gallops, murmurs, or rubs. Normal PMI, no JVD. No pulse deficits. Respiratory: Lungs have equal breath sounds bilaterally, clear to auscultation and percussion. No rales, rhonchi or wheezes noted. No increased work of breathing, no retractions or nasal flaring. Abdomen/GI: Soft, non-tender, with normal bowel sounds. No distension or tympany. No guarding or rebound. No evidence of tenderness throughout. Back: No spinal tenderness. No costovertebral tenderness. Full range of motion. Skin: Warm, dry with normal turgor. Normal color with no rashes, no lesions, and no evidence of cellulitis. MS/ Extremity: Pulses equal, no cyanosis. Neurovascular intact. Full, normal range of motion. 19:15 Neuro: Orientation: is normal, Motor: moves all fours. Vital Signs: 17:00 BP 121 / 87; Pulse 76; Resp 18; Temp 98.4(TE); Pulse Ox 99% on R/A; Weight 54.43 kg; hj Height 5 ft. 7 in. (170.18 cm); Pain 10/10; 17:00 Body Mass Index 18.79 (54.43 kg, 170.18 cm) MDM: 17:54 Patient medically screened. pm1 18:55 Data reviewed: vital signs. Data interpreted: Pulse oximetry: on room air is 99 %. pm1 Interpretation: normal. Counseling: I had a detailed discussion with the patient and/or guardian regarding: the historical points, exam findings, and any diagnostic results supporting the discharge/admit diagnosis, the need for outpatient follow up, to return to the emergency department if symptoms worsen or persist or if there are any questions or concerns that arise at home. Administered Medications: 18:15 Drug: [place] 10 mg-325 mg 1 tabs Route: PO; tl3 Disposition: 06/14/17 19:02 Discharged to Home. Impression: Headache. - Condition is Stable. - Discharge Instructions: General Headache Without Cause. - Medication Reconciliation Form, Thank You Letter, Prescription Opioid Use form. - Follow up: Emergency Department; When: As needed; Reason: Worsening of condition. Follow up: [facility]; When: 2 - 3 days; Reason: Recheck today's complaints, Continuance of care, Re-evaluation by your physician. - Problem is new. - Symptoms have improved. Addendum: 06/17/2017 06:20 Co-signature as Attending Physician, Waldo Waters MD Available for consultation at p s1 all times. . Signatures: Yony Archuleta RN RN hj Brendan Mckeon, JENNIFER GLASS FURNACE TENDER pm1 Waldo Waters MD MD ps1 Lana Kimble RN RN rk2 Karli Diallo RN RN tl3
--- NOTE | 2017-06-14 19:03 | ER ---
Nurse's Notes [facility] Name: Tana Rao Age: 42 yrs Sex: Female : 1975 Arrival Date: 06/14/2017 Time: 16:49 Bed 26 Private MD: [facility] BARBA Diagnosis: Headache Presentation: 06/14 16:58 Presenting complaint: EMS states: headache 100 x worse, was here this morning;. hj Transition of care: patient was not received from another setting of care. Onset of symptoms was June 14, 2017. Initial Sepsis Screen: Does the patient meet any 2 criteria? No. Patient's initial sepsis screen is negative. Does the patient have a suspected source of infection? No. Patient's initial sepsis screen is negative. Care prior to arrival: None. 16:58 Method Of Arrival: EMS: [facility] 16:58 Acuity: AMY 3 Triage Assessment: 17:00 Headache History: The patient has had previous headaches. General: Appears in no hj apparent distress. uncomfortable, Behavior is calm, cooperative, appropriate for age. Pain: Complains of pain in head Pain currently is 10 out of 10 on a pain scale. Pain began Also complains of. Neuro: Level of Consciousness is awake, alert, obeys commands, Oriented to person, place, time, situation, Appropriate for age. 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 method Historical: - Allergies: 17:00 Demerol; 17:00 GABAPENTIN; 17:00 ketorolac tromethamine; 17:00 Lyrica; 17:00 pregabalin; 17:00 sulfamethoxazole-trimethoprim; 17:00 Tramadol HCl; hj - Home Meds: 17:00 amitriptyline 25 mg Oral tab 1 tab once daily [Active]; clorazepate dipotassium Oral hj [Active]; Cyclobenzaprine Oral [Active]; esomeprazole magnesium Oral [Active]; gabapentin Oral [Active]; Mirtazapine Oral [Active]; tizanidine Oral [Active]; - PMHx: 17:00 Anxiety; Bipolar disorder; BRAIN , MUSCLE, DISC, NERVE, AND AUTOIMMUNE DISEASE; Chronic hj pain; Degenerative disc disease; Depression; Fibromyalgia; Hypothyroidism; Multiple Sclerosis; Rheumatoid Arthritis; UTI; - PSHx: 17:00 Hysterectomy; hj - Immunization history:: Flu vaccine is not up to date. - Social history:: Smoking status: Patient uses tobacco products. Screenin:00 Abuse screen: Denies threats or abuse. rk2 19:00 Nutritional screening: No deficits noted. Tuberculosis screening: No symptoms or risk rk2 factors identified. Fall Risk None identified. Vital Signs: 17:00 BP 121 / 87; Pulse 76; Resp 18; Temp 98.4(TE); Pulse Ox 99% on R/A; Weight 54.43 kg; hj Height 5 ft. 7 in. (170.18 cm); Pain 10/10; 17:00 Body Mass Index 18.79 (54.43 kg, 170.18 cm) hj ED Course: 16:49 Patient arrived in ED. mr 16:50 [facility] BAR[facility] is Private Physician. mr 16:58 Triage completed. hj 17:00 Arm band placed on left wrist. hj 17:25 Lana Kimble RN is Primary Nurse. rk2 17:28 Brendan Mckeon NP is PHCP. pm1 17:28 Waldo Waters MD is Attending Physician. pm1 19:00 Patient has correct armband on for positive identification. Bed in low position. Call rk2 light in reach. 19:01 [facility] is Referral Physician. pm1 19:13 No provider procedures requiring assistance completed. Patient did not have IV access rk2 during this emergency room visit. Administered Medications: 18:15 Drug: [place] 10 mg-325 mg 1 tabs Route: PO; tl3 Outcome: 19:02 Discharge ordered by MD. pm1 19:14 Discharged to [facility] 19:14 Condition: good 19:14 Discharge instructions given to patient. 19:15 Patient left the ED. rk2 Signatures: Myriam Galan mr ArchuletaYony RN RN Brendan Mckeon NP CART DRIVER pm1 Lana Kimble RN RN rk2 Karli Diallo RN RN tl3 Corrections: (The following items were deleted from the chart) 17:02 17:00 Pulse 76bpm; Resp 18bpm; Pulse Ox 99% RA; Temp 98.4F Temporal; 54.43 kg; Height 5 hj ft. 7 in.; BMI: 18.7; Pain 10/10; hj
[2017-06-14 19:24] VITALS: BP 121/87; TEMP 98.4; O2SAT 99
== END 2017-06-14 19:15 | disposition home or self-care (01) ==
LOC: ER 16:46
DX: R51 Headache (principal); F31.9 Bipolar disorder, unspecified; E03.9 Hypothyroidism, unspecified; Z72.0 Tobacco use; Z88.2 Allergy status to sulfonamides; Z88.5 Allergy status to narcotic agent; Z88.6 Allergy status to analgesic agent; Z88.8 Allergy status to other drugs, medicaments and biological substances
CPT/HCPCS: 99283

== ENCOUNTER 2017-06-19 08:25 | Emergency (ER) | payer OTHER ==
--- NOTE | 2017-06-19 09:45 | ER ---
Nurse's Notes [facility] Name: Tana Rao Age: 42 yrs Sex: Female : 1975 Arrival Date: 06/19/2017 Time: 08:29 Bed 13 Private MD: Diagnosis: Dizziness and giddiness;Bipolar disorder;Multiple sclerosis Presentation: 06/19 08:30 Presenting complaint: EMS states: Pt c/o blurred vision and dizziness, has been seen 2 ph times for same complaint last week, hx of fibromyalgia, VSS en route. Transition of care: patient was not received from another setting of care. Onset of symptoms was June 19, 2017. Initial Sepsis Screen: Does the patient meet any 2 criteria? No. Patient's initial sepsis screen is negative. Does the patient have a suspected source of infection? No. Patient's initial sepsis screen is negative. Care prior to arrival: None. 08:30 Method Of Arrival: EMS: [facility] ph 08:30 Acuity: AMY 3 ph 08:40 Note Pt states, " They told me before that I need to follow up with a neurologist, but ph I don't have a phone to call and make an appointment. 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 LMP N/A - Hysterectomy ph Historical: - Allergies: 08:35 Demerol; ph 08:35 GABAPENTIN; ph 08:35 ketorolac tromethamine; ph 08:35 Lyrica; ph 08:35 pregabalin; ph 08:35 sulfamethoxazole-trimethoprim; ph 08:35 Tramadol HCl; ph - Home Meds: 08:35 amitriptyline 25 mg Oral tab 1 tab once daily [Active]; clorazepate dipotassium Oral ph [Active]; Cyclobenzaprine Oral [Active]; esomeprazole magnesium Oral [Active]; gabapentin Oral [Active]; Mirtazapine Oral [Active]; tizanidine Oral [Active]; - PMHx: 08:35 Anxiety; Bipolar disorder; BRAIN , MUSCLE, DISC, NERVE, AND AUTOIMMUNE DISEASE; Chronic ph pain; Degenerative disc disease; Depression; Fibromyalgia; Hypothyroidism; Multiple Sclerosis; Rheumatoid Arthritis; UTI; - PSHx: 08:35 Hysterectomy; ph - Immunization history:: Adult Immunizations unknown. - Social history:: Smoking status: Patient uses tobacco products, smokes one-half pack cigarettes per day. - Family history:: not pertinent. Screenin:35 Abuse screen: Denies threats or abuse. Denies injuries from another. Nutritional ph screening: No deficits noted. Tuberculosis screening: No symptoms or risk factors identified. Fall Risk None identified. Assessment: 08:36 General: Appears in no apparent distress. comfortable, slender, unkempt, Behavior is ph calm, cooperative, appropriate for age, drowsy, Denies fever. Pain: Complains of pain in left christian Pain radiates to forehead and left christian Pain currently is 10 out of 10 on a pain scale. Quality of pain is described as pressure. Neuro: Level of Consciousness is awake, alert, obeys commands, Oriented to person, place, time, situation, Reports blurred vision dizziness, headache. Cardiovascular: Capillary refill < 3 seconds Patient's skin is warm and dry. Respiratory: Airway is patent Respiratory effort is even, unlabored, Respiratory pattern is regular, symmetrical. GI: No signs and/or symptoms were reported involving the gastrointestinal system. Derm: Skin is intact, is healthy with good turgor, Skin is pink, warm \\T\\ dry. Musculoskeletal: Circulation, motion, and sensation intact. Range of motion: intact in all extremities. 10:08 Reassessment: Patient appears in no apparent distress at this time. Patient and/or ph family updated on plan of care and expected duration. Pain level reassessed. Patient is alert, oriented x 3, equal unlabored respirations, skin warm/dry/pink. Pt instructed to follow up w/ neuro, discharged home w/ prercription for Meclizine. Vital Signs: 08:32 BP 112 / 93; Pulse 92; Resp 16; Temp 98.0; Pulse Ox 100% on R/A; Weight 54.43 kg; ph Height 5 ft. 7 in. (170.18 cm); Pain 10/10; 08:32 Body Mass Index 18.79 (54.43 kg, 170.18 cm) ph ED Course: 08:29 Patient arrived in ED. ph 08:31 Triage completed. ph 08:32 Celestine Tafoya MD is Attending Physician. angela 08:33 Arm band placed on. ph 08:36 Patient has correct armband on for positive identification. Bed in low position. Call light in reach. Side rails up X 1. Pulse ox on. NIBP on. Warm blanket given. 09:43 Ivan Cai MD is Referral Physician. [facility] 10:08 Luz Elena Ingram, RN is Primary Nurse. ph 10:10 No provider procedures requiring assistance completed. ph 10:11 IV discontinued, intact, bleeding controlled, No redness/swelling at site. Pressure ph dressing applied. Administered Medications: No medications were administered Outcome: :44 Discharge ordered by . angela 10:10 Discharged to home ambulatory. ph 10:10 Condition: good 10:10 Discharge instructions given to patient, Instructed on discharge instructions, follow up and referral plans. medication usage, Demonstrated understanding of instructions, follow-up care, medications, Prescriptions given X 1. 10:12 Patient left the ED. ph Signatures: Celestine Tafoya MD MD cha Hall, Patricia, RN RN ph Corrections: (The following items were deleted from the chart) 08:32 08:30 Presenting complaint: EMS states: Pt c/o blurred vision and dizziness, has been ph seen 2 times for same complaint last week, hx of fibromyalgia, VSS en route ph 08:32 08:30 Acuity: AMY 4 ph ph 08:33 08:33 Patient placed ph ph
--- NOTE | 2017-06-19 09:45 | EDPHYS ---
Physician Documentation [facility] Name: Tana Rao Age: 42 yrs Sex: Female : 1975 Arrival Date: 06/19/2017 Time: 08:29 Bed 13 Private MD: ED Physician Celestine Tafoya HPI: 06/19 09:37 This 42 yrs old Female presents to ER via EMS with complaints of Dizziness. angela 09:37 The patient presents with dizziness. Onset: The symptoms/episode began/occurred 2 angela day(s) ago. Context: occurred at home. Modifying factors: The symptoms are alleviated by nothing, the symptoms are aggravated by nothing. Associated signs and symptoms: The patient has no apparent associated signs or symptoms. Patient's baseline: Neuro: alert and fully oriented. The patient has experienced similar episodes in the past, several times. 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 N/A - Hysterectomy ph Historical: - Allergies: 08:35 Demerol; ph 08:35 GABAPENTIN; ph 08:35 ketorolac tromethamine; ph 08:35 Lyrica; ph 08:35 pregabalin; ph 08:35 sulfamethoxazole-trimethoprim; ph 08:35 Tramadol HCl; ph - Home Meds: 08:35 amitriptyline 25 mg Oral tab 1 tab once daily [Active]; clorazepate dipotassium Oral ph [Active]; Cyclobenzaprine Oral [Active]; esomeprazole magnesium Oral [Active]; gabapentin Oral [Active]; Mirtazapine Oral [Active]; tizanidine Oral [Active]; - PMHx: 08:35 Anxiety; Bipolar disorder; BRAIN , MUSCLE, DISC, NERVE, AND AUTOIMMUNE DISEASE; Chronic ph pain; Degenerative disc disease; Depression; Fibromyalgia; Hypothyroidism; Multiple Sclerosis; Rheumatoid Arthritis; UTI; - PSHx: 08:35 Hysterectomy; ph - Immunization history:: Adult Immunizations unknown. - Social history:: Smoking status: Patient uses tobacco products, smokes one-half pack cigarettes per day. - Family history:: not pertinent. ROS: 09:37 Constitutional: Negative for fever, chills, and weight loss, ENT: Negative for injury, angela pain, and discharge, Neck: Negative for injury, pain, and swelling, Cardiovascular: Negative for chest pain, palpitations, and edema, Respiratory: Negative for shortness of breath, cough, wheezing, and pleuritic chest pain, Abdomen/GI: Negative for abdominal pain, nausea, vomiting, diarrhea, and constipation, Back: Negative for injury and pain, : Negative for injury, bleeding, discharge, and swelling, MS/Extremity: Negative for injury and deformity, Skin: Negative for injury, rash, and discoloration, Psych: Negative for depression, anxiety, suicide ideation, homicidal ideation, and hallucinations, Allergy/Immunology: Negative for hives, rash, and allergies, Endocrine: Negative for neck swelling, polydipsia, polyuria, polyphagia, and marked weight changes, Hematologic/Lymphatic: Negative for swollen nodes, abnormal bleeding, and unusual bruising. 09:37 Eyes: Positive for vision loss, visual disturbance. 09:37 Neuro: Positive for dizziness, visual changes, weakness. Exam: 09:37 Constitutional: This is a well developed, well nourished patient who is awake, alert, angela and in no acute distress. Head/Face: Normocephalic, atraumatic. Eyes: Pupils equal round and reactive to light, extra-ocular motions intact. Lids and lashes normal. Conjunctiva and sclera are non-icteric and not injected. Cornea within normal limits. Periorbital areas with no swelling, redness, or edema. ENT: Nares patent. No nasal discharge, no septal abnormalities noted. Tympanic membranes are normal and external auditory canals are clear. Oropharynx with no redness, swelling, or masses, exudates, or evidence of obstruction, uvula midline. Mucous membranes moist. Neck: Trachea midline, no thyromegaly or masses palpated, and no cervical lymphadenopathy. Supple, full range of motion without nuchal rigidity, or vertebral point tenderness. No Meningismus. Chest/axilla: Normal chest wall appearance and motion. Nontender with no deformity. No lesions are appreciated. Cardiovascular: Regular rate and rhythm with a normal S1 and S2. No gallops, murmurs, or rubs. Normal PMI, no JVD. No pulse deficits. Respiratory: Lungs have equal breath sounds bilaterally, clear to auscultation and percussion. No rales, rhonchi or wheezes noted. No increased work of breathing, no retractions or nasal flaring. Abdomen/GI: Soft, non-tender, with normal bowel sounds. No distension or tympany. No guarding or rebound. No evidence of tenderness throughout. Back: No spinal tenderness. No costovertebral tenderness. Full range of motion. Skin: Warm, dry with normal turgor. Normal color with no rashes, no lesions, and no evidence of cellulitis. MS/ Extremity: Pulses equal, no cyanosis. Neurovascular intact. Full, normal range of motion. Neuro: Awake and alert, GCS 15, oriented to person, place, time, and situation. Cranial nerves II-XII grossly intact. Motor strength 5/5 in all extremities. Sensory grossly intact. Cerebellar exam normal. Normal gait. Psych: Awake, alert, with orientation to person, place and time. Behavior, mood, and affect are within normal limits. Vital Signs: 08:32 BP 112 / 93; Pulse 92; Resp 16; Temp 98.0; Pulse Ox 100% on R/A; Weight 54.43 kg; ph Height 5 ft. 7 in. (170.18 cm); Pain 10/10; 08:32 Body Mass Index 18.79 (54.43 kg, 170.18 cm) ph MDM: 08:32 Patient medically screened. [facility] 09:46 Data reviewed: vital signs, nurses notes, lab test result(s). [facility] 06/19 09:42 Order name: Urine Culture [facility] 06/19 09:59 Order name: Urine Dipstick--Ancillary (enter results) 06/19 09:42 Order name: Urine Dipstick-Ancillary (obtain specimen); Complete Time: 09:49 [facility] 06/19 09:42 Order name: Urine Test (obtain specimen); Complete Time: 09:49 [facility] Administered Medications: No medications were administered Disposition: 06/19/17 09:44 Discharged to Home. Impression: Dizziness and giddiness, Bipolar disorder, Multiple sclerosis. - Condition is Stable. - Discharge Instructions: Dizziness, Bipolar Disorder, Dizziness, [id number]. - Prescriptions for Meclizine 25 mg Oral Tablet - take 1 tablet by ORAL route every 8 hours As needed; 30 tablet. - Medication Reconciliation Form, Thank You Letter, Antibiotic Education, Prescription Opioid Use form. - Follow up: Private Physician; When: 2 - 3 days; Reason: Recheck today's complaints, Continuance of care, Re-evaluation by your physician. Follow up: Ivan Cai MD; When: 2 - 3 days; Reason: Recheck today's complaints, Re-evaluation by your physician. - Problem is new. - Symptoms have improved. Signatures: Dispatcher [employer] Celestine Pritchard MD MD cha Hall, Patricia, RN RN ph
[2017-06-19 10:22] VITALS: BP 112/93; TEMP 98; O2SAT 100
[2017-06-19 11:32] LABS: Urine Blood NEGATIVE (NEG); Urine Glucose NEGATIVE (NEG); Urine Protein NEGATIVE (NEG); Urine Specific Gravity 1.015 (1.005-1.030); Urine pH 5.5 (5.0-7.0)
== END 2017-06-19 10:12 | disposition home or self-care (01) ==
LOC: ER 08:25
DX: F31.9 Bipolar disorder, unspecified (principal); G35 Multiple sclerosis; Z88.6 Allergy status to analgesic agent; Z88.2 Allergy status to sulfonamides
CPT/HCPCS: 81003; 87086; 87088; 99283

== ENCOUNTER 2017-07-09 21:59 | Emergency (ER) | payer OTHER ==
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
--- NOTE | 2017-07-10 01:51 | EDPHYS ---
Physician Documentation [facility] Name: Tana Rao Age: 42 yrs Sex: Female : 1975 Arrival Date: 07/09/2017 Time: 22:05 Bed 24 Private MD: ED Physician Fabien Henry HPI: 07/09 23:12 This 42 yrs old Female presents to ER via EMS with complaints of pain all snw over. 23:12 Pt states she woke up not knowing what has been happening x 3 days and did not know snw where she was when she awoke. Onset: The symptoms/episode began/occurred gradually, and became persistent. Severity of symptoms: At their worst the symptoms were moderate. The patient has experienced similar episodes in the past. It is unknown whether or not the patient has recently seen a physician. Pt with hx of MS, Drug abuse, frequent ED visits.. 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 02:48 unkl rk2 Historical: - Allergies: 07/09 22:18 Demerol; fc 22:18 GABAPENTIN; fc 22:18 ketorolac tromethamine; fc 22:18 pregabalin; fc 22:18 Lyrica; fc 22:18 sulfamethoxazole-trimethoprim; fc 22:18 Tramadol HCl; fc - Home Meds: 22:18 tizanidine Oral [Active]; Mirtazapine Oral [Active]; gabapentin Oral [Active]; fc esomeprazole magnesium Oral [Active]; Cyclobenzaprine Oral [Active]; clorazepate dipotassium Oral [Active]; amitriptyline 25 mg Oral tab 1 tab once daily [Active]; - PMHx: 22:18 Anxiety; Bipolar disorder; BRAIN , MUSCLE, DISC, NERVE, AND AUTOIMMUNE DISEASE; Chronic fc pain; Degenerative disc disease; Depression; Fibromyalgia; Hypothyroidism; Multiple Sclerosis; Rheumatoid Arthritis; UTI; - Immunization history:: Last tetanus immunization: up to date. - Social history:: Smoking status: Patient uses tobacco products, smokes one-half pack cigarettes per day, Patient/guardian denies using alcohol, street drugs. ROS: 23:12 Eyes: Negative for injury, pain, redness, and discharge, ENT: Negative for injury, snw pain, and discharge, Neck: Negative for injury, pain, and swelling, Cardiovascular: Negative for chest pain, palpitations, and edema, Respiratory: Negative for shortness of breath, cough, wheezing, and pleuritic chest pain, Abdomen/GI: Negative for abdominal pain, nausea, vomiting, diarrhea, and constipation, Back: Negative for injury and pain, : Negative for injury, bleeding, discharge, and swelling, Skin: Negative for injury, rash, and discoloration. 23:12 Constitutional: Positive for body aches, fatigue, malaise, poor PO intake. 23:12 MS/extremity: Positive for pain all over. 23:12 Neuro: Positive for altered mental status, weakness. Exam: 23:16 Head/Face: Normocephalic, atraumatic. Eyes: Pupils equal round and reactive to light, snw extra-ocular motions intact. Lids and lashes normal. Conjunctiva and sclera are non-icteric and not injected. Cornea within normal limits. Periorbital areas with no swelling, redness, or edema. ENT: Nares patent. No nasal discharge, no septal abnormalities noted. Tympanic membranes are normal and external auditory canals are clear. Oropharynx with no redness, swelling, or masses, exudates, or evidence of obstruction, uvula midline. Mucous membranes moist. Neck: Trachea midline, no thyromegaly or masses palpated, and no cervical lymphadenopathy. Supple, full range of motion without nuchal rigidity, or vertebral point tenderness. No Meningismus. Chest/axilla: Normal chest wall appearance and motion. Nontender with no deformity. No lesions are appreciated. 23:16 Abdomen/GI: Soft, non-tender, with normal bowel sounds. No distension or tympany. No guarding or rebound. No evidence of tenderness throughout. Back: No spinal tenderness. No costovertebral tenderness. Full range of motion. Skin: Warm, dry with normal turgor. Normal color with no rashes, no lesions, and no evidence of cellulitis. Neuro: Awake and alert, GCS 15, oriented to person, place, time, and situation. Cranial nerves II-XII grossly intact. Motor strength 5/5 in all extremities. Sensory grossly intact. Cerebellar exam normal. Normal gait. Psych: Awake, alert, with orientation to person, place and time. Behavior, mood, and affect are within normal limits. 23:16 Constitutional: The patient appears awake, agitated, frail, restless, unkempt. 23:16 Cardiovascular: Rate: tachycardic, Heart sounds: normal. 23:16 Abdomen/GI: Inspection: abdomen appears normal, Bowel sounds: normal, Palpation: abdomen is soft and non-tender. Vital Signs: 22:08 BP 133 / 66; Pulse 105; Resp 20; Temp 98.5(O); Pulse Ox 100% on R/A; Weight 54.43 kg fc (R); Height 5 ft. 7 in. (170.18 cm) (R); Pain 10/10; 23:46 BP 110 / 92; Pulse 74; Resp 18; Pulse Ox 99% ; tl3 07/10 02:00 BP 107 / 82; Pulse 79; Resp 17; Pulse Ox 98% on R/A; rk2 07/09 22:08 Body Mass Index 18.79 (54.43 kg, 170.18 cm) fc MDM: 07/09 22:20 Patient medically screened. snw 07/10 01:51 Data reviewed: vital signs, nurses notes. Data interpreted: Pulse oximetry: on room air snw is 99 %. Interpretation: normal. Counseling: I had a detailed discussion with the patient and/or guardian regarding: the historical points, exam findings, and any diagnostic results supporting the discharge/admit diagnosis, the presence of at least one elevated blood pressure reading (>120/80) during this emergency department visit, the need for outpatient follow up, to return to the emergency department if symptoms worsen or persist or if there are any questions or concerns that arise at home, smoking cessation. Special discussion: Based on the history and exam findings, there is no indication for further emergent testing or inpatient evaluation. I discussed with the patient/guardian the need to see the primary care provider for further evaluation of the symptoms. 07/09 22:19 Order name: Urine Dipstick-Ancillary (obtain specimen) snw Administered Medications: No medications were administered Disposition: 05:45 Co-signature as Attending Physician, Fabien Henry MD I agree with the assessment and tw4 plan of care. Disposition: 07/10/17 01:51 Discharged to Home. Impression: Chronic pain, not elsewhere classified, Malaise and fatigue. - Condition is Stable. - Discharge Instructions: Chronic Pain, Fatigue. - Medication Reconciliation Form, Thank You Letter, Antibiotic Education, Prescription Opioid Use form. - Follow up: Private Physician; When: Tomorrow; Reason: Recheck today's complaints, Continuance of care, Re-evaluation by your physician. Signatures: Dispatcher [employer] Zahraa Mendieta, NATHALIE PLASTERER FOREMAN-Csnw Yelena Bryan, RN RN Fabien Lopez MD MD tw4 Lana Kimble RN RN rk2 Corrections: (The following items were deleted from the chart) 02:48 01:51 07/10/2017 01:51 Discharged to Home. Impression: Chronic pain, not elsewhere rk2 classified; Malaise and fatigue. Condition is Stable. Forms are Medication Reconciliation Form, Thank You Letter, Antibiotic Education, Prescription Opioid Use. Follow up: Private Physician; When: Tomorrow; Reason: Recheck today's complaints, Continuance of care, Re-evaluation by your physician. snw
[2017-07-10 02:57] VITALS: TEMP 98.5
[2017-07-10 02:59] VITALS: BP 107/82; O2SAT 98
== END 2017-07-10 02:48 | disposition home or self-care (01) ==
LOC: ER 21:59
DX: G89.29 Other chronic pain (principal); R53.81 Other malaise; R53.83 Other fatigue; F31.9 Bipolar disorder, unspecified; F41.9 Anxiety disorder, unspecified; E03.9 Hypothyroidism, unspecified; F17.210 Nicotine dependence, cigarettes, uncomplicated; Z88.2 Allergy status to sulfonamides; Z88.5 Allergy status to narcotic agent; Z88.6 Allergy status to analgesic agent; Z88.8 Allergy status to other drugs, medicaments and biological substances
CPT/HCPCS: 99283

== ENCOUNTER 2017-07-23 06:33 | Emergency (ER) | payer OTHER ==
[2017-07-23] MEDS ORDERED: ACETAMINOPHEN 500 MG TAB ONE (06:44)
[2017-07-23] MEDS ORDERED: ONDANSETRON 4 MG (ODT) TAB ONE (06:44)
--- NOTE | 2017-07-23 06:49 | ER ---
Nurse's Notes [facility] Name: Tana Rao Age: 42 yrs Sex: Female : 1975 Arrival Date: 07/23/2017 Time: 06:35 Bed 16 Private MD: Diagnosis: Headache Presentation: 07/23 06:37 Presenting complaint: EMS states: Upon arrival she was complaining of headache to right ea side of head. Transition of care: patient was not received from another setting of care. Onset of symptoms was July 23, 2017. Risk Assessment: Do you want to hurt yourself or someone else? Patient reports no desire to harm self or others. Initial Sepsis Screen: Does the patient meet any 2 criteria? No. Patient's initial sepsis screen is negative. Does the patient have a suspected source of infection? No. Patient's initial sepsis screen is negative. Care prior to arrival: None. 06:37 Method Of Arrival: EMS: [facility] ea 06:37 Acuity: AMY 4 ea Triage Assessment: 06:39 General: Appears uncomfortable, Behavior is appropriate for age. Pain: Complains of ea pain in right temporal area, right side of forehead and right hoahaoism Pain currently is 10 out of 10 on a pain scale. Quality of pain is described as pressure, Pain began 30 min ago. Neuro: Level of Consciousness is awake, alert, obeys commands, Oriented to person, place, time, situation. Cardiovascular: Patient's skin is warm and dry. Respiratory: Airway is patent Respiratory effort is even, unlabored, Respiratory pattern is regular, symmetrical. Historical: - Allergies: 06:44 Demerol; ea 06:44 GABAPENTIN; ea 06:44 ketorolac tromethamine; ea 06:44 pregabalin; ea 06:44 Lyrica; ea 06:44 sulfamethoxazole-trimethoprim; ea 06:44 Tramadol HCl; ea - Home Meds: 06:44 amitriptyline 25 mg Oral tab 1 tab once daily [Active]; clorazepate dipotassium Oral ea [Active]; Cyclobenzaprine Oral [Active]; esomeprazole magnesium Oral [Active]; Mirtazapine Oral [Active]; tizanidine Oral [Active]; gabapentin Oral [Active]; - PMHx: 06:44 UTI; Rheumatoid Arthritis; Multiple Sclerosis; Hypothyroidism; Fibromyalgia; ea Depression; Degenerative disc disease; Chronic pain; BRAIN , MUSCLE, DISC, NERVE, AND AUTOIMMUNE DISEASE; Bipolar disorder; Anxiety; - Immunization history:: Adult Immunizations up to date. - Social history:: Smoking status: Patient uses tobacco products, smokes one pack cigarettes per day. - Ebola Screening: : No symptoms or risks identified at this time. Screenin:36 Abuse screen: Denies threats or abuse. Nutritional screening: No deficits noted. ea Tuberculosis screening: No symptoms or risk factors identified. Fall Risk None identified. Vital Signs: 06:40 BP 121 / 104; Pulse 76; Resp 18; Temp 98.6(O); Pulse Ox 99% ; Weight 53.52 kg; Height 5 ea ft. 3 in. (160.02 cm); Pain 10/10; 06:40 Body Mass Index 20.90 (53.52 kg, 160.02 cm) ea ED Course: 06:35 Patient arrived in ED. rg2 06:35 Celestine Galvan PA is PHCP. cp 06:35 Waldo Waters MD is Attending Physician. cp 06:39 Triage completed. ea 06:44 Arm band placed on right wrist. ea 06:45 Patient has correct armband on for positive identification. Bed in low position. Call ea light in reach. Side rails up X 1. Administered Medications: 06:46 Drug: Zofran 4 mg Route: PO; eb1 06:46 Drug: Tylenol 1000 mg Route: PO; eb1 Outcome: 06:49 Discharge ordered by . cp 07:26 Patient left the ED. tw2 Signatures: Carmen Hayward rg2 Celestine Galvan PA PA cp Wise, Tara, RN RN tw2 Morenita Kenney RN RN ea Basinger, Emily, RN RN eb1
--- NOTE | 2017-07-23 06:49 | EDPHYS ---
Physician Documentation [facility] Name: Tana Rao Age: 42 yrs Sex: Female : 1975 Arrival Date: 07/23/2017 Time: 06:35 Bed 16 Private MD: ED Physician Waldo Waters HPI: 07/23 06:40 This 42 yrs old Female presents to ER via EMS with complaints of headache. cp 06:40 The patient complains of pain to the right side of head. The patient describes the cp headache as a pressure. Onset: The symptoms/episode began/occurred this morning. Associated signs and symptoms: Pertinent positives: nausea, Photophobia Pertinent negatives: fever, neck stiffness, sinus congestion, sinus tenderness, vomiting, weakness. Severity of symptoms: in the emergency department the pain is unchanged, despite EMS interventions. Headache History: The patient has had previous headaches and this one is similar to previous episodes. Historical: - Allergies: 06:44 Demerol; ea 06:44 GABAPENTIN; ea 06:44 ketorolac tromethamine; ea 06:44 pregabalin; ea 06:44 Lyrica; ea 06:44 sulfamethoxazole-trimethoprim; ea 06:44 Tramadol HCl; ea - Home Meds: 06:44 amitriptyline 25 mg Oral tab 1 tab once daily [Active]; clorazepate dipotassium Oral ea [Active]; Cyclobenzaprine Oral [Active]; esomeprazole magnesium Oral [Active]; Mirtazapine Oral [Active]; tizanidine Oral [Active]; gabapentin Oral [Active]; - PMHx: 06:44 UTI; Rheumatoid Arthritis; Multiple Sclerosis; Hypothyroidism; Fibromyalgia; ea Depression; Degenerative disc disease; Chronic pain; BRAIN , MUSCLE, DISC, NERVE, AND AUTOIMMUNE DISEASE; Bipolar disorder; Anxiety; - Immunization history:: Adult Immunizations up to date. - Social history:: Smoking status: Patient uses tobacco products, smokes one pack cigarettes per day. - Ebola Screening: : No symptoms or risks identified at this time. ROS: 06:41 Constitutional: Negative for body aches, chills, fever, poor PO intake. cp 06:41 Eyes: Positive for photophobia, Negative for discharge, redness. 06:41 ENT: Negative for drainage from ear(s), ear pain, sore throat, difficulty swallowing, difficulty handling secretions. 06:41 Cardiovascular: Negative for chest pain, edema, palpitations. 06:41 Respiratory: Negative for cough, shortness of breath, wheezing. 06:41 Abdomen/GI: Positive for nausea, Negative for abdominal pain, vomiting, diarrhea, constipation. 06:41 Skin: Negative for cellulitis, rash. 06:41 Neuro: Positive for headache, Negative for altered mental status, syncope, near syncope, weakness. 06:41 All other systems are negative. Exam: 06:42 Head/Face: Normocephalic, atraumatic. cp 06:42 Constitutional: The patient appears in no acute distress, alert, awake, non-toxic, well developed, well nourished. 06:42 Eyes: Periorbital structures: appear normal, Pupils: equal, round, and reactive to light and accomodation, Extraocular movements: intact throughout, Conjunctiva: normal, no exudate, no injection, Lids and lashes: appear normal, bilaterally. 06:42 ENT: External ear(s): are unremarkable, Ear canal(s): are normal, clear, TM's: bulging, is not appreciated, bilaterally, dullness, bilaterally, erythema, is not appreciated, bilaterally, Nose: is normal, Mouth: Lips: moist, Oral mucosa: moist, Posterior pharynx: is normal, airway is patent, no erythema, no exudate. 06:42 Neck: External neck: swelling, is not appreciated, tenderness, is not appreciated, Lymph nodes: no appreciated lymphadenopathy. 06:42 Chest/axilla: Inspection: normal, Palpation: is normal, no crepitus, no tenderness. 06:42 Cardiovascular: Rate: normal, Rhythm: regular. 06:42 Respiratory: the patient does not display signs of respiratory distress, Respirations: normal, no use of accessory muscles, no retractions, no splinting, no tachypnea, labored breathing, is not present, Breath sounds: are clear throughout, no decreased breath sounds, no stridor, no wheezing. 06:42 Abdomen/GI: Exam negative for discomfort, distension, guarding, Inspection: abdomen appears normal. 06:42 Skin: cellulitis, is not appreciated, no rash present. 06:42 Neuro: Orientation: to person, place \T\ time. Mentation: lucid, able to follow commands, Motor: moves all fours, strength is normal, Sensation: no obvious gross deficits. Vital Signs: 06:40 BP 121 / 104; Pulse 76; Resp 18; Temp 98.6(O); Pulse Ox 99% ; Weight 53.52 kg; Height 5 ea ft. 3 in. (160.02 cm); Pain 10/10; 06:40 Body Mass Index 20.90 (53.52 kg, 160.02 cm) ea MDM: 06:35 Patient medically screened. cp 06:40 Differential diagnosis: cluster headache, intracerebral hemorrhage, migraine, cp sinusitis, tension headache, traumatic injuries, trigeminal neuralgia. 06:48 Data reviewed: vital signs, nurses notes. cp 06:48 Counseling: I had a detailed discussion with the patient and/or guardian regarding: the cp historical points, exam findings, and any diagnostic results supporting the discharge/admit diagnosis, to return to the emergency department if symptoms worsen or persist or if there are any questions or concerns that arise at home. Administered Medications: 06:46 Drug: Zofran 4 mg Route: PO; eb1 06:46 Drug: Tylenol 1000 mg Route: PO; eb1 Disposition: 06:55 Chart complete. cp 07:05 Co-signature as Attending Physician, Waldo Waters MD I agree with the assessment and ps1 plan of care. Disposition: 07/23/17 06:49 Discharged to Home. Impression: Headache. - Condition is Stable. - Discharge Instructions: General Headache Without Cause. - Medication Reconciliation Form, Thank You Letter, Antibiotic Education, Prescription Opioid Use form. - Follow up: Private Physician; When: 1 - 2 days; Reason: Recheck today's complaints. - Problem is an ongoing problem. - Symptoms have improved. Signatures: Celestine Galvan PA PA cp Yu Hopson, RN RN tw2 Morenita Kenney RN RN ea Singer, Phillip, MD MD ps1 Taylor Fenton RN RN eb1 Corrections: (The following items were deleted from the chart) 07:26 06:49 07/23/2017 06:49 Discharged to Home. Impression: Headache. Condition is Stable. tw2 Forms are Medication Reconciliation Form, Thank You Letter, Antibiotic Education, Prescription Opioid Use. Follow up: Private Physician; When: 1 - 2 days; Reason: Recheck today's complaints. Problem is an ongoing problem. Symptoms have improved. cp
[2017-07-23 07:34] VITALS: BP 121/104; TEMP 98.6; O2SAT 99
== END 2017-07-23 07:26 | disposition home or self-care (01) ==
LOC: ER 06:33
DX: R51 Headache (principal); E03.9 Hypothyroidism, unspecified; M79.7 Fibromyalgia; F41.9 Anxiety disorder, unspecified; F17.210 Nicotine dependence, cigarettes, uncomplicated; Z88.2 Allergy status to sulfonamides; Z88.6 Allergy status to analgesic agent
CPT/HCPCS: 99283

== ENCOUNTER 2017-08-27 19:13 | Emergency (ER) | payer OTHER ==
[2017-08-27] MEDS ORDERED: NA CHLORIDE 0.9% 1,000 ML ONE (19:37)
[2017-08-27] MEDS ORDERED: IPRATROPIUM BROM 0.5MG/2.5ML ONE (19:39)
[2017-08-27] MEDS ORDERED: ALBUTEROL 2.5 MG/3 ML NEB SOL ONE (19:39)
[2017-08-27 19:51] LABS: Absolute Lymphocytes (CBC) 1.7 K/uL (0.7-4.9); Absolute Monocytes 0.5 K/uL (0.1-1.3); Basophils % 0.6 % (0-1.3); Eosinophils % 6.8 % (0-4.4); Hematocrit 35.7 % (36.0-45.0); Lymphocytes % 25.6 % (15.3-44.8); MCH 24.3 pg (27.0-35.0); MCV 74.9 fL (80-100); MPV 8.5 fL (7.6-11.3); Monocytes % 7.6 % (3.3-12.3); RBC Red Blood Cell Count 4.76 M/uL (3.86-4.86)
[2017-08-27 19:55] LABS: Protime INR 1.03
[2017-08-27 20:09] LABS: ALT/SGPT 17 U/L (12-78); AST/SGOT 17 U/L (15-37); Albumin 3.4 g/dL (3.4-5.0); Alkaline Phosphatase 119 U/L (45-117); BUN Blood Urea Nitrogen 8 mg/dL (7-18); Bicarbonate 28 mmol/L (21-32); Bilirubin Direct < 0.1 mg/dL (0-0.2); Bilirubin Total 0.3 mg/dL (0.2-1.0); CKMB Creatine Kinase MB 2.1 ng/mL (0.3-3.6); Creatine Phosphokinase 176 U/L (26-192); Glucose Level 89 mg/dL (74-106); Magnesium 2.2 mg/dL (1.8-2.4); NT PRO-BNP 45 pg/mL (<125); Potassium 3.4 mmol/L (3.5-5.1); Protein, Total 6.9 g/dL (6.4-8.2); Sodium Level 144 mmol/L (136-145)
--- NOTE | 2017-08-27 20:23 | RAD REPORT ---
EXAM DESCRIPTION: RAD - Chest Single View - 08/27/2017 8:15 pm CLINICAL HISTORY: pain all over;SOB Chest pain. COMPARISON: Chest Pa And Lat (2 Views) dated 03/14/2017; Chest Single View dated 02/23/2017; Chest Si ngle View dated 07/24/2016; Chest Single View dated 07/02/2016 FINDINGS: Portable technique limits examination quality. The lungs are grossly clear. The heart is normal in size. No displaced fractures. IMPRESSION: No acute intrathoracic process suspected.
--- NOTE | 2017-08-27 20:36 | EDPHYS ---
Physician Documentation [facility] Name: Tana Rao Age: 42 yrs Sex: Female : 1975 Arrival Date: 08/27/2017 Time: 19:17 Bed 16 Private MD: ED Physician Celestine Tafoya HPI: 08/27 19:39 This 42 yrs old Female presents to ER via EMS with complaints of Breathing cp Difficulty. 19:39 The patient has shortness of breath at rest. Onset: The symptoms/episode began/occurred cp today. Duration: The symptoms are continuous, and are steadily getting worse. 19:39 Associated signs and symptoms: Pertinent positives: "pain all over", Pertinent cp negatives: productive cough, diaphoresis, fever. Severity of symptoms: in the emergency department the symptoms are unchanged. TERRITORY REPRESENTATIVE: 19:44 LMP N/A - Hysterectomy ao Historical: - Allergies: 19:21 Demerol; ao 19:21 GABAPENTIN; ao 19:21 ketorolac tromethamine; ao 19:21 Lyrica; ao 19:21 pregabalin; ao 19:21 sulfamethoxazole-trimethoprim; ao 19:21 Tramadol HCl; ao - PMHx: 19:21 Anxiety; Bipolar disorder; BRAIN , MUSCLE, DISC, NERVE, AND AUTOIMMUNE DISEASE; Chronic ao pain; Degenerative disc disease; Depression; Fibromyalgia; Hypothyroidism; Multiple Sclerosis; Rheumatoid Arthritis; UTI; - PSHx: 19:21 None; ao - Immunization history:: Adult Immunizations unknown. - Social history:: Smoking status: Patient uses tobacco products, smokes one pack cigarettes per day. Patient/guardian denies using alcohol, street drugs. - Ebola Screening: : Patient negative for fever greater than or equal to 101.5 degrees Fahrenheit, and additional compatible Ebola Virus Disease symptoms Patient denies exposure to infectious person Patient denies travel to an Ebola-affected area in the 21 days before illness onset. ROS: 19:43 Constitutional: Negative for body aches, chills, fever, poor PO intake. cp 19:43 Eyes: Negative for injury, pain, redness, and discharge. cp 19:43 Cardiovascular: Negative for chest pain, edema, palpitations. 19:43 Respiratory: Positive for shortness of breath, at rest. Negative for cough, wheezing. 19:43 Abdomen/GI: Negative for vomiting, diarrhea, constipation. 19:43 MS/extremity: Positive for pain all over, Negative for injury or acute deformity, paresthesias. 19:43 Skin: Negative for cellulitis, rash. 19:43 Neuro: Negative for altered mental status, seizure activity, weakness. 19:43 All other systems are negative. Exam: 19:52 Constitutional: The patient appears in no acute distress, alert, awake, cp non-diaphoretic, non-toxic, well developed, well nourished. 19:52 Head/Face: Normocephalic, atraumatic. cp 19:52 Eyes: Periorbital structures: appear normal, Conjunctiva: normal, no exudate, no injection, Sclera: no appreciated abnormality, Lids and lashes: appear normal, bilaterally. 19:52 ENT: External ear(s): are unremarkable, Ear canal(s): are normal, clear, TM's: bulging, is not appreciated, bilaterally, dullness, bilaterally, erythema, is not appreciated, bilaterally, Nose: is normal, Mouth: Lips: dry, Oral mucosa: dry, Posterior pharynx: Airway: no evidence of obstruction, patent, Uvula: midline, swelling, is not appreciated, erythema, is not appreciated, exudate, is not appreciated. 19:52 Neck: ROM/movement: is normal, is supple, no range of motions limitations, no meningismus, no nuchal rigidity. 19:52 Chest/axilla: Inspection: normal, Palpation: is normal, no crepitus, no tenderness. 19:52 Cardiovascular: Rate: normal, Rhythm: regular, Pulses: Pulses are 2+ in right radial artery and left radial artery. Edema: is not appreciated, JVD: is not appreciated. 19:52 Respiratory: the patient does not display signs of respiratory distress, Respirations: labored breathing, is not present, accessory muscle usage, is absent, intercostal retractions, are absent, shallow respirations, that is mild, tachypnea, is not appreciated, Breath sounds: decreased breath sounds, are not appreciated, stridor, is not appreciated, wheezing: is not appreciated. 19:52 Abdomen/GI: Inspection: abdomen appears normal, Bowel sounds: active, all quadrants, Palpation: abdomen is soft and non-tender, in all quadrants, rebound tenderness, is not appreciated, voluntary guarding, is not appreciated, involuntary guarding, is not appreciated. 19:52 Skin: cellulitis, is not appreciated, no rash present. 19:52 Neuro: Orientation: to person, place \\T\\ time. Motor: moves all fours, strength is normal, Sensation: no obvious gross deficits. 20:00 ECG was reviewed by the Attending Physician. cp Vital Signs: 19:22 BP 120 / 64; Pulse 88; Resp 20; Temp 98.6(O); Pulse Ox 99% on R/A; Weight 54.43 kg (R); ao Height 5 ft. 7 in. (170.18 cm) (R); Pain 10/10; 19:22 Body Mass Index 18.79 (54.43 kg, 170.18 cm) ao MDM: 19:25 Patient medically screened. cp 20:28 Data reviewed: vital signs, nurses notes, lab test result(s), EKG, radiologic studies, cp plain films. 08/27 19:31 Order name: NT PRO-BNP; Complete Time: 20:17 cp 08/27 19:31 Order name: Basic Metabolic Panel; Complete Time: 20:17 cp 08/27 20:17 Interpretation: Normal except: K 3.4; CL 110. cp 08/27 19:31 Order name: CBC with Diff; Complete Time: 20:17 cp 08/27 19:31 Order name: Ckmb; Complete Time: 20:17 cp 08/27 19:31 Order name: CPK; Complete Time: 20:17 cp 08/27 19:31 Order name: LFT's; Complete Time: 20:17 cp 08/27 20:17 Interpretation: Normal except: ALK 119; A/G 1.0. 08/27 19:31 Order name: Magnesium; Complete Time: 20:17 cp 08/27 19:31 Order name: PT-INR; Complete Time: 20:17 cp 08/27 19:31 Order name: Ptt, Activated; Complete Time: 20:17 cp 08/27 19:31 Order name: Troponin (emerg Dept Use Only); Complete Time: 20:17 cp 08/27 19:31 Order name: XRAY Chest (1 view); Complete Time: 20:23 cp 08/27 20:24 Interpretation: Report review. 08/27 19:41 Order name: Test, Serum; Complete Time: 20:17 cp 08/27 19:31 Order name: EKG; Complete Time: 19:32 cp 08/27 19:31 Order name: Cardiac monitoring; Complete Time: 20:21 cp 08/27 19:31 Order name: EKG - Nurse/Tech; Complete Time: 19:58 cp 08/27 19:31 Order name: IV Saline Lock; Complete Time: 19:43 cp 08/27 19:31 Order name: Labs collected and sent; Complete Time: 19:43 cp 08/27 19:31 Order name: O2 Per Protocol; Complete Time: 19:43 cp 08/27 19:31 Order name: O2 Sat Monitoring; Complete Time: 19:43 cp EC:00 Rate is 80 beats/min. Rhythm is regular. MA interval is normal. QRS interval is normal. cp QT interval is normal. Interpreted by me. Reviewed by me. Administered Medications: 19:41 Drug: NS 0.9% 1000 ml Route: IV; Rate: 1 bolus; Site: right hand; ao 20:19 Follow up: IV Status: Patient pulled IV ao 19:42 Drug: Albuterol - atroVENT (3:1) (2.5 mg - 0.5 mg) 3 ml Route: Nebulizer; ao 20:20 Follow up: Response: No adverse reaction ao 19:42 Not Given (Patient has allergies to Toradol): TORadol 30 mg IVP once ao 20:19 Not Given (Patient Pulled IV, Refused and left home): Ativan 0.5 mg IVP once; if ao test negative 20:36 Not Given (Patient left AMA): Potassium Effervescent Tablet 25 mEq PO once; dissolve in ao 4 ounces of water or juice Disposition: 08/28 08:39 Co-signature as Attending Physician, Celestine Tafoya MD I agree with the assessment and [facility] plan of care. Disposition: 08/27/17 20:35 Patient has left against medical advice. Impression: Shortness of breath. - Patients states they are going to Home. - Condition is Stable. Follow up: Private Physician; When: 1 - 2 days; Reason: Recheck today's complaints. - Problem is new. - Symptoms have improved. Signatures: Dispatcher [employer] Celestine Pritchard MD MD cha Page, Corey, PA PA cp Ortiz, Alex RN RN ao Corrections: (The following items were deleted from the chart) 08/27 20:20 19:31 Urine Dipstick-Ancillary ordered. cp ao 20:36 20:35 08/27/2017 20:35 Patients has left against medical advice. Impression: Shortness ao of breath. Patient states they are going to Home. Condition is Stable. Follow up: Private Physician; When: 1 - 2 days; Reason: Recheck today's complaints. Problem is new. Symptoms have improved. cp
--- NOTE | 2017-08-27 20:36 | ER ---
Nurse's Notes [facility] Name: Tana Rao Age: 42 yrs Sex: Female : 1975 Arrival Date: 08/27/2017 Time: 19:17 Bed 16 Private MD: Diagnosis: Shortness of breath Presentation: 08/27 19:18 Presenting complaint: EMS states: Patient complained of difficulty breathing. Patient ao was in the street for the whole day and now seems dehydrated. Transition of care: patient was not received from another setting of care. Onset of symptoms is unknown. Risk Assessment: Do you want to hurt yourself or someone else? Patient reports no desire to harm self or others. Initial Sepsis Screen: Does the patient meet any 2 criteria? No. Patient's initial sepsis screen is negative. Does the patient have a suspected source of infection? No. Patient's initial sepsis screen is negative. Care prior to arrival: None. 19:18 Method Of Arrival: EMS: [facility] ao 19:18 Acuity: AMY 3 ao Triage Assessment: 19:26 General: Appears in no apparent distress. Respiratory: Reports shortness of breath ao since 0900 Onset: The symptoms/episode began/occurred this morning, the patient has moderate shortness of breath. MANAGER MASSAGE DEPARTMENT: 19:44 LMP N/A - Hysterectomy ao Historical: - Allergies: 19:21 Demerol; ao 19:21 GABAPENTIN; ao 19:21 ketorolac tromethamine; ao 19:21 Lyrica; ao 19:21 pregabalin; ao 19:21 sulfamethoxazole-trimethoprim; ao 19:21 Tramadol HCl; ao - PMHx: 19:21 Anxiety; Bipolar disorder; BRAIN , MUSCLE, DISC, NERVE, AND AUTOIMMUNE DISEASE; Chronic ao pain; Degenerative disc disease; Depression; Fibromyalgia; Hypothyroidism; Multiple Sclerosis; Rheumatoid Arthritis; UTI; - PSHx: 19:21 None; ao - Immunization history:: Adult Immunizations unknown. - Social history:: Smoking status: Patient uses tobacco products, smokes one pack cigarettes per day. Patient/guardian denies using alcohol, street drugs. - Ebola Screening: : Patient negative for fever greater than or equal to 101.5 degrees Fahrenheit, and additional compatible Ebola Virus Disease symptoms Patient denies exposure to infectious person Patient denies travel to an Ebola-affected area in the 21 days before illness onset. Screenin:26 Abuse screen: Denies threats or abuse. Denies injuries from another. Nutritional ao screening: No deficits noted. Tuberculosis screening: No symptoms or risk factors identified. Fall Risk None identified. Assessment: 19:23 General: Appears in no apparent distress. uncomfortable, Behavior is cooperative, ao agitated, anxious. Pain: Complains of pain in genral body Pain currently is 10 out of 10 on a pain scale. Neuro: Level of Consciousness is awake, alert, obeys commands, Oriented to person, Moves all extremities. Facial symmetry appears normal. Cardiovascular: Capillary refill < 3 seconds Rhythm is regular. Respiratory: Airway is patent Respiratory effort is even, unlabored, Respiratory pattern is regular, symmetrical, Breath sounds are clear bilaterally. GI: Abdomen is non-distended. : No signs and/or symptoms were reported regarding the genitourinary system. EENT: No signs and/or symptoms were reported regarding the EENT system. Derm: Skin is intact, Skin is dry, Skin is pale, yellow, Skin temperature is warm. Musculoskeletal: Range of motion: intact in all extremities. 19:25 Reassessment: Patient pulled her NC out. Patient complained that O2 is burning her ao nose. Patient O2 is maintained in 99% RA. 20:21 Reassessment: Patient pulled her IV out and stated that she wants to go home. Provider ao was notified. Patient sign AMA paper and left home. Vital Signs: 19:22 BP 120 / 64; Pulse 88; Resp 20; Temp 98.6(O); Pulse Ox 99% on R/A; Weight 54.43 kg (R); ao Height 5 ft. 7 in. (170.18 cm) (R); Pain 10/10; 19:22 Body Mass Index 18.79 (54.43 kg, 170.18 cm) ao ED Course: 19:17 Patient arrived in ED. ao 19:19 Triage completed. ao 19:22 Celestine Galvan PA is PHCP. cp 19:22 Kevin Nichols MD is Attending Physician. cp 19:22 Arm band placed on right wrist. Patient placed in an exam room, on a stretcher, on ao pulse oximetry, Patient notified of wait time. 19:27 Patient has correct armband on for positive identification. Pulse ox on. NIBP on. ao 19:31 Chang, Nhan, RN is Primary Nurse. ao 19:54 Celestine Tafoya MD is Attending Physician. cp 19:57 EKG done, by ED staff, reviewed by Celestine FINLEY. jp3 20:07 X-ray completed. Portable x-ray completed in exam room. Patient tolerated procedure la2 well. 20:15 XRAY Chest (1 view) In Process Unspecified. EDMS 20:22 No provider procedures requiring assistance completed. Patient self pulled IV. Bleeding ao was controlled. Administered Medications: 19:41 Drug: NS 0.9% 1000 ml Route: IV; Rate: 1 bolus; Site: right hand; ao 20:19 Follow up: IV Status: Patient pulled IV ao 19:42 Drug: Albuterol - atroVENT (3:1) (2.5 mg - 0.5 mg) 3 ml Route: Nebulizer; ao 20:20 Follow up: Response: No adverse reaction ao 19:42 Not Given (Patient has allergies to Toradol): TORadol 30 mg IVP once ao 20:19 Not Given (Patient Pulled IV, Refused and left home): Ativan 0.5 mg IVP once; if ao test negative 20:36 Not Given (Patient left AMA): Potassium Effervescent Tablet 25 mEq PO once; dissolve in ao 4 ounces of water or juice Outcome: 20:22 AMA AMA form signed ao 20:22 Condition: stable 20:22 Instructed on discharge instructions, follow up and referral plans. To come back to ER if any problems get worst. 20:36 Patient left the ED. ao Signatures: Dispatcher [employer] EDOH Celestine Galvan PA PA cp Ortiz, Alex, RN RN ao Ardoin, Leslie la2 Louis Solis jp3
[2017-08-27 20:53] VITALS: BP 120/64; TEMP 98.6; O2SAT 99
--- NOTE | 2017-08-28 06:36 | EKG ---
Test Date: 2017-08-27 Test Time: 19:51:13 Convex Grinder Operator: GAGE MEASUREMENT RESULTS: Intervals: Rate: 83 [place]: QRSD: 78 QT: 392 QTc: 460 [place]: P: OH: QRS: 87 T: 97 INTERPRETIVE STATEMENTS: Poor data quality Sinus rhythm Non specific ST abnormality, possibly all baseline artifact Abnormal ECG Compared to ECG 06/13/2017 23:41:26 ST (T wave) deviation still present Electronically Signed On 08-28-17 06:35:54 CDT by Laci Espinoza
== END 2017-08-27 20:36 | disposition left against medical advice (07) ==
LOC: ER 19:13
DX: R06.02 Shortness of breath (principal); F17.210 Nicotine dependence, cigarettes, uncomplicated; Z88.2 Allergy status to sulfonamides; Z88.5 Allergy status to narcotic agent; Z88.8 Allergy status to other drugs, medicaments and biological substances
CPT/HCPCS: 36415; 71045; 80048; 80076; 82550; 82553; 83735; 83880; 84484; 84703; 85025; 85610; 85730; 93005; 94640; 96360; 99284; J7030

== ENCOUNTER 2017-08-29 09:59 | Emergency (ER) | payer OTHER ==
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
[2017-08-29 10:56] VITALS: BP 106/74; TEMP 98.5; O2SAT 100
--- NOTE | 2017-08-29 11:19 | EDPHYS ---
Physician Documentation [facility] Name: Tana Rao Age: 42 yrs Sex: Female : 1975 Arrival Date: 08/29/2017 Time: 09:59 Bed 14 Private MD: ED Physician Kevin Nichols HPI: 08/29 11:04 This 42 yrs old Female presents to ER via EMS with complaints of Psych gs Problem. 11:04 The patient presents to the emergency department with paranoia, psychosis, has gs delusions. Onset: The symptoms/episode began/occurred at an unknown time. Past psychiatric history: Prior diagnosis: addiction history, bipolar disorder, depression. 11:04 Associated signs and symptoms: Pertinent negatives: chest pain, shortness of breath. gs Severity of symptoms: At their worst the symptoms were mild in the emergency department the symptoms are unchanged. The patient has experienced similar episodes in the past, chronically. 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 jl7 Historical: - Allergies: 10:10 Demerol; jl7 10:10 GABAPENTIN; jl7 10:10 ketorolac tromethamine; jl7 10:10 Lyrica; jl7 10:10 pregabalin; jl7 10:10 sulfamethoxazole-trimethoprim; jl7 10:10 Tramadol HCl; jl7 - PMHx: 10:10 Anxiety; Bipolar disorder; BRAIN , MUSCLE, DISC, NERVE, AND AUTOIMMUNE DISEASE; Chronic jl7 pain; Degenerative disc disease; Depression; Hypothyroidism; Fibromyalgia; Multiple Sclerosis; Rheumatoid Arthritis; UTI; - Immunization history:: Adult Immunizations unknown. - Social history:: Smoking status: Patient uses tobacco products, "I think I smoke but I don't know.", Patient/guardian denies using alcohol, street drugs, IV drugs. - Ebola Screening: : No symptoms or risks identified at this time. ROS: 11:04 Unable to obtain ROS due to patient being uncooperative. gs Exam: 11:04 Head/Face: Normocephalic, atraumatic. Eyes: Pupils equal round and reactive to light, gs extra-ocular motions intact. Lids and lashes normal. Conjunctiva and sclera are non-icteric and not injected. Cornea within normal limits. Periorbital areas with no swelling, redness, or edema. ENT: Nares patent. No nasal discharge, no septal abnormalities noted. Tympanic membranes are normal and external auditory canals are clear. Oropharynx with no redness, swelling, or masses, exudates, or evidence of obstruction, uvula midline. Mucous membranes moist. Neck: Trachea midline, no thyromegaly or masses palpated, and no cervical lymphadenopathy. Supple, full range of motion without nuchal rigidity, or vertebral point tenderness. No Meningismus. Chest/axilla: Normal chest wall appearance and motion. Nontender with no deformity. No lesions are appreciated. Cardiovascular: Regular rate and rhythm with a normal S1 and S2. No gallops, murmurs, or rubs. Normal PMI, no JVD. No pulse deficits. Respiratory: Lungs have equal breath sounds bilaterally, clear to auscultation and percussion. No rales, rhonchi or wheezes noted. No increased work of breathing, no retractions or nasal flaring. Abdomen/GI: Soft, non-tender, with normal bowel sounds. No distension or tympany. No guarding or rebound. No evidence of tenderness throughout. Back: No spinal tenderness. No costovertebral tenderness. Full range of motion. Skin: Warm, dry with normal turgor. Normal color with no rashes, no lesions, and no evidence of cellulitis. MS/ Extremity: Pulses equal, no cyanosis. Neurovascular intact. Full, normal range of motion. 11:04 Constitutional: The patient appears alert, awake. 11:04 Neuro: Orientation: to person, place, situation, Memory: no acute changes, Cranial nerves: CN II- XII are normal as tested, Cerebellar function: Romberg testing is negative, Motor: moves all fours, strength is normal, Sensation: no obvious gross deficits, Gait: is steady, seizure activity, is not displayed by the patient, Abnormal movements: there are no abnormal movements. 11:04 Psych: Behavior/mood is anxious, Affect is flat, Oriented to person, place, Patient has no thoughts/intents to harm self or others. Judgement / Insight is impaired. Delusions/hallucinations are not present. Vital Signs: 10:10 BP 106 / 74; Pulse 88; Resp 14 S; Temp 98.5(O); Pulse Ox 100% on R/A; Weight 54.43 kg jl7 (R); Height 5 ft. 7 in. (170.18 cm) (R); Pain 10/10; 10:10 Body Mass Index 18.79 (54.43 kg, 170.18 cm) jl7 MDM: 10:33 Patient medically screened. 11:04 Differential diagnosis: acute psychotic break, depression, psychosis secondary to gs non-compliance. Data reviewed: vital signs, nurses notes. ED course: pt wants to go home do not have basis to confine will discharge. Administered Medications: No medications were administered Disposition: 08/29/17 10:37 Discharged to Home. Impression: Unspecified psychosis not due to a substance or known physiological condition. - Condition is Stable. - Discharge Instructions: Psychosis. - Medication Reconciliation Form, Thank You Letter, Antibiotic Education, Prescription Opioid Use form. - Follow up: Private Physician; When: 2 - 3 days; Reason: Re-evaluation by your physician. Signatures: Joshua Xie RN RN jl7 Kevin Nichols MD MD Corrections: (The following items were deleted from the chart) 10:49 10:37 08/29/2017 10:37 Discharged to Home. Impression: Unspecified psychosis not due to jl7 a substance or known physiological condition. Condition is Stable. Forms are Medication Reconciliation Form, Thank You Letter, Antibiotic Education, Prescription Opioid Use. Follow up: Private Physician; When: 2 - 3 days; Reason: Re-evaluation by your physician. 11:19 10:49 08/29/2017 10:37 Discharged to Home. Impression: Unspecified psychosis not due to a substance or known physiological condition. Condition is Stable. Discharge Instructions: Psychosis. Forms are Medication Reconciliation Form, Thank You Letter, Antibiotic Education, Prescription Opioid Use. Follow up: Private Physician; When: 2 - 3 days; Reason: Re-evaluation by your physician. jl7
== END 2017-08-29 11:19 | disposition home or self-care (01) ==
LOC: ER 09:59
DX: F28 Other psychotic disorder not due to a substance or known physiological condition (principal); F31.9 Bipolar disorder, unspecified; F41.9 Anxiety disorder, unspecified; E03.9 Hypothyroidism, unspecified; F17.200 Nicotine dependence, unspecified, uncomplicated; G35 Multiple sclerosis; Z88.6 Allergy status to analgesic agent; Z88.2 Allergy status to sulfonamides
CPT/HCPCS: 99283

== ENCOUNTER 2017-09-04 15:05 | Emergency (ER) | payer OTHER ==
--- NOTE | 2017-09-04 15:48 | ER ---
Nurse's Notes [facility] Name: Tana Rao Age: 42 yrs Sex: Female : 1975 Arrival Date: 09/04/2017 Time: 15:06 Bed Waiting Private MD: Diagnosis: Presentation: 09/04 15:10 Presenting complaint: EMS states: Pt was found by PD sleeping on a side walk and PD aa5 called EMS. EMS reports pt is currently not speaking but able to follow commands and when asked about her name she points to her wrist band. 15:10 Transition of care: patient was not received from another setting of care. Onset of aa5 symptoms was September 04, 2017. 15:10 Method Of Arrival: EMS: [facility] aa5 15:20 Presenting complaint: Pt currently A \\T\\ O x 4, awake and alert, clear speech noted. Pt aa5 states "I don't want to wait here so I am going to my doctor in the morning". Pt denies any complaints. 15:20 Acuity: AMY 3 aa5 Vital Signs: 15:20 aa5 15:20 Pt refused full triage, refused VS aa5 ED Course: 15:06 Patient arrived in ED. as 15:47 Mohsen Carlton MD is Attending Physician. aa5 15:50 Triage completed. aa5 Administered Medications: No medications were administered Outcome: 15:47 Patient left the ED. aa5 Signatures: Shanae Lester Audri, RN RN aa5
== END 2017-09-04 15:47 | disposition left against medical advice (07) ==
LOC: ER 15:05
DX: Z53.21 Procedure and treatment not carried out due to patient leaving prior to being seen by health care provider (principal)
CPT/HCPCS: 99282

== ENCOUNTER 2017-09-08 14:19 | Emergency (ER) | payer OTHER ==
--- NOTE | 2017-09-08 15:37 | RAD REPORT ---
EXAM DESCRIPTION: CT - Head Brain Wo Cont - 09/08/2017 3:26 pm CLINICAL HISTORY: Confusion/generalize weakness COMPARISON: May 2017 TECHNIQUE: Computed axial tomography of the head was obtained. IV contrast was not requested. All CT scans are performed using dose optimization technique as appropriate and may include automated exposure control or mA/KV adjustment according to patient size. FINDINGS: An intracranial bleed is not seen . The ventricles are normal in caliber. No extra-axial fluid collection is noted. Fluid within the sinuses/ mastoids is not seen. IMPRESSION: No acute intracranial abnormality is seen. If patient's symptoms persist MRI of the bra in would be recommended.
[2017-09-08 16:01] LABS: Hematocrit 39.7 % (36.0-45.0); MCH 24.7 pg (27.0-35.0); MCV 75.9 fL (80-100); MPV 8.1 fL (7.6-11.3); RBC Red Blood Cell Count 5.22 M/uL (3.86-4.86)
[2017-09-08 16:15] LABS: BUN Blood Urea Nitrogen 7 mg/dL (7-18); Bicarbonate 28 mmol/L (21-32); Glucose Level 87 mg/dL (74-106); Sodium Level 141 mmol/L (136-145)
--- NOTE | 2017-09-08 16:25 | EDPHYS ---
Physician Documentation [facility] Name: Tana Rao Age: 42 yrs Sex: Female : 1975 Arrival Date: 09/08/2017 Time: 14:20 Bed 15 Private MD: ED Physician Mohsen Carlton HPI: 09/08 18:30 This 42 yrs old Female presents to ER via EMS with complaints of General kdr Weakness. 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 - hj Historical: - Allergies: 14:26 Demerol; hj 14:26 GABAPENTIN; hj 14:26 ketorolac tromethamine; hj 14:26 Lyrica; hj 14:26 pregabalin; hj 14:26 sulfamethoxazole-trimethoprim; hj 14:26 Tramadol HCl; hj - Home Meds: 14:26 amitriptyline 25 mg Oral tab 1 tab once daily [Active]; clorazepate dipotassium Oral hj [Active]; Cyclobenzaprine Oral [Active]; esomeprazole magnesium Oral [Active]; gabapentin Oral [Active]; Mirtazapine Oral [Active]; tizanidine Oral [Active]; - PMHx: 14:26 Anxiety; Bipolar disorder; BRAIN , MUSCLE, DISC, NERVE, AND AUTOIMMUNE DISEASE; Chronic hj pain; Degenerative disc disease; Depression; Fibromyalgia; Hypothyroidism; Multiple Sclerosis; Rheumatoid Arthritis; UTI; - PSHx: 14:26 None; hj - Immunization history:: Adult Immunizations up to date. - Social history:: Smoking status: Patient uses tobacco products, Patient/guardian denies using alcohol. - Ebola Screening: : Patient negative for fever greater than or equal to 101.5 degrees Fahrenheit, and additional compatible Ebola Virus Disease symptoms Patient denies exposure to infectious person Patient denies travel to an Ebola-affected area in the 21 days before illness onset. Vital Signs: 14:27 BP 116 / 86; Pulse 64; Resp 18; Temp 98.8(O); Pulse Ox 95% on R/A; Weight 61.23 kg; hj Height 5 ft. 5 in. (165.10 cm); Pain 0/10; 16:10 BP 115 / 87; Pulse 65; Resp 18; Pulse Ox 100% on R/A; hj 14:27 Body Mass Index 22.46 (61.23 kg, 165.10 cm) hj MDM: 16:25 Patient medically screened. kdr 09/08 15:11 Order name: CBC w/o diff; Complete Time: 16:23 aa5 09/08 15:11 Order name: Basic Metabolic Panel; Complete Time: 16:23 aa5 09/08 15:09 Order name: Diet Regular; Complete Time: 15:09 hj 09/08 15:11 Order name: CT Head Brain wo Cont; Complete Time: 16:23 aa5 Administered Medications: No medications were administered Disposition: 09/08/17 16:25 Discharged to Home. Impression: Weakness. - Condition is Fair. - Discharge Instructions: Weakness, [id number]. - Medication Reconciliation Form, Thank You Letter form. - Follow up: Private Physician; When: 2 - 3 days; Reason: If symptoms return, Further diagnostic work-up, Recheck today's complaints, Continuance of care, Re-evaluation by your physician. - Problem is an acute exacerbation. - Symptoms have improved. Addendum: 09/20/2017 14:40 Addendum: CC: Generalized weakness HPI: The patient is seen here frequently for the raquel august same s/s today. She reportedly arrived in front of the EMS station stating that she was feeling poorly. . Addendum: ROS: Const: GNo fever, chills or weight loss Eyes: no visual changes or c/o, Neck: no pain or injury, CV: no CP or palpitations, Resp: cough and congestion with coarse breath sounds Abd: no n/v/d or pain, Back: no pain or injury, : no pain or bleeding, MS/Ext: no pain, injury, swelling, tingling, Skin: no lacerations, pain, injury, skin turgor good, both lower extremities are slightly swollen with mild/minimal drainage Neuro: CN grossly intact and no other deficits, Psych: Appropriate for age, Allergy/Immunology: no rashes or other s/s, Endo: no evidence of polyuria, polydipsia, temperature control or other s/s. 14:42 Addendum: Exam: Const: WDWN WM in NAD, Head/Face: no injury, pain or deformity, Eyes: raquel JONES, ENT: no pain, injury or bleeding, Neck: no pain, injury or deformity, full ROM Chest/Axilla: No pain, injury or deformity, CV: no rubs, gallops, murmurs, regular rate, Resp: CTAB, regular rate, Abd/GI: soft, NT, BS present in all quads and normal, Back: no injury or deformity, full ROM, MS/Extremity: no injury or deformity, FROM, distal pulses good and equal, 2+ pitting edema to both lower extremities with minimal drainage. Skin: no rashes, ecchymosis skin turgor good, Neuro: CN grossly intact, no other neuro deficits, Psych: appropriate for age, no SI/HI, no depression . Addendum: MDM (Discharge) All VS and nursing notes reviewed. The patient was counseled on the results and need for follow-up. The patient was discharged in stable condition. They were happy with the care they received and the plan for d/c and follow-up.. Signatures: Dispatcher [employer] EDMS Mohsen Carlton MD MD kdr Gladys Diaz RN RN aa5 Yony Archuleta RN RN hj Corrections: (The following items were deleted from the chart) 09/08 16:40 16:25 09/08/2017 16:25 Discharged to Home. Impression: Weakness. Condition is Fair. hj Forms are Medication Reconciliation Form, Thank You Letter, Antibiotic Education, Prescription Opioid Use. Follow up: Private Physician; When: 2 - 3 days; Reason: If symptoms return, Further diagnostic work-up, Recheck today's complaints, Continuance of care, Re-evaluation by your physician. Problem is an acute exacerbation. Symptoms have improved. kdr
--- NOTE | 2017-09-08 16:25 | ER ---
Nurse's Notes [facility] Name: Tana Rao Age: 42 yrs Sex: Female : 1975 Arrival Date: 09/08/2017 Time: 14:20 Bed 15 Private MD: Diagnosis: Weakness Presentation: 09/08 14:21 Presenting complaint: EMS states: was perfectly fine this AM and was in front of our hj statio when she complains of general weakness; no drifts, BGL- 136; BP- 113/72; HR- 79; RR- 18; T- 98.9;. Transition of care: patient was not received from another setting of care. Onset of symptoms was September 08, 2017. Risk Assessment: Do you want to hurt yourself or someone else? Patient reports no desire to harm self or others. Initial Sepsis Screen: Does the patient meet any 2 criteria? No. Patient's initial sepsis screen is negative. Does the patient have a suspected source of infection? No. Patient's initial sepsis screen is negative. Care prior to arrival: None. 14:21 Method Of Arrival: EMS: [facility] 14:21 Acuity: AMY 3 hj Triage Assessment: 14:27 General: Appears in no apparent distress. uncomfortable, Behavior is calm, cooperative, hj appropriate for age. Pain: Denies pain. 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 - hj Historical: - Allergies: 14:26 Demerol; hj 14:26 GABAPENTIN; hj 14:26 ketorolac tromethamine; hj 14:26 Lyrica; hj 14:26 pregabalin; hj 14:26 sulfamethoxazole-trimethoprim; hj 14:26 Tramadol HCl; hj - Home Meds: 14:26 amitriptyline 25 mg Oral tab 1 tab once daily [Active]; clorazepate dipotassium Oral hj [Active]; Cyclobenzaprine Oral [Active]; esomeprazole magnesium Oral [Active]; gabapentin Oral [Active]; Mirtazapine Oral [Active]; tizanidine Oral [Active]; - PMHx: 14:26 Anxiety; Bipolar disorder; BRAIN , MUSCLE, DISC, NERVE, AND AUTOIMMUNE DISEASE; Chronic hj pain; Degenerative disc disease; Depression; Fibromyalgia; Hypothyroidism; Multiple Sclerosis; Rheumatoid Arthritis; UTI; - PSHx: 14:26 None; hj - Immunization history:: Adult Immunizations up to date. - Social history:: Smoking status: Patient uses tobacco products, Patient/guardian denies using alcohol. - Ebola Screening: : Patient negative for fever greater than or equal to 101.5 degrees Fahrenheit, and additional compatible Ebola Virus Disease symptoms Patient denies exposure to infectious person Patient denies travel to an Ebola-affected area in the 21 days before illness onset. Screenin:27 Abuse screen: Denies threats or abuse. Denies injuries from another. Nutritional hj screening: No deficits noted. Tuberculosis screening: No symptoms or risk factors identified. Fall Risk Fall in past 12 months (25 points). Secondary diagnosis (15 points). Assessment: 14:28 Reassessment: Patient and/or family updated on plan of care and expected duration. Pain hj level reassessed. Patient is alert, oriented x 3, equal unlabored respirations, skin warm/dry/pink. see triage for assessment;. 14:28 Reassessment: Patient and/or family updated on plan of care and expected duration. Pain hj level reassessed. Patient is alert, oriented x 3, equal unlabored respirations, skin warm/dry/pink. awaiting results and POC;. 15:30 Reassessment: Patient and/or family updated on plan of care and expected duration. Pain hj level reassessed. Patient is alert, oriented x 3, equal unlabored respirations, skin warm/dry/pink. awaiting results and POC;. 16:10 Reassessment: Patient and/or family updated on plan of care and expected duration. Pain hj level reassessed. Patient is alert, oriented x 3, equal unlabored respirations, skin warm/dry/pink. "i want to leave i need to catch the bus". Vital Signs: 14:27 BP 116 / 86; Pulse 64; Resp 18; Temp 98.8(O); Pulse Ox 95% on R/A; Weight 61.23 kg; hj Height 5 ft. 5 in. (165.10 cm); Pain 0/10; 16:10 BP 115 / 87; Pulse 65; Resp 18; Pulse Ox 100% on R/A; hj 14:27 Body Mass Index 22.46 (61.23 kg, 165.10 cm) ED Course: 14:20 Patient arrived in ED. 14:21 Geremias, Ynoy, RN is Primary Nurse. hj 14:23 Triage completed. hj 14:27 Arm band placed on right wrist. hj 14:28 Patient has correct armband on for positive identification. Placed in gown. Bed in low hj position. Call light in reach. Side rails up X 1. 14:52 Mohsen Carlton MD is Attending Physician. kdr 15:[address] nj 15:21 CT completed. Patient tolerated procedure well. Patient moved back from CT. nj 15:23 CT Head Brain wo Cont In Process Unspecified. EDMS 16:40 No provider procedures requiring assistance completed. Patient did not have IV access hj during this emergency room visit. Administered Medications: No medications were administered Outcome: 16:25 Discharge ordered by . kdr 16:40 Discharged to home ambulatory. hj 16:40 Condition: stable 16:40 Discharge instructions given to patient, Instructed on discharge instructions, follow up and referral plans. Demonstrated understanding of instructions, follow-up care. 16:40 Patient left the ED. Signatures: Dispatcher [employer] EDAR Mohsen Carlton MD MD [facility] Yony Archuleta, RN RN Shaun Goode
[2017-09-08 16:52] VITALS: BP 115/87; O2SAT 100
[2017-09-08 16:53] VITALS: TEMP 98.8
== END 2017-09-08 16:40 | disposition home or self-care (01) ==
LOC: ER 14:19
DX: R53.1 Weakness (principal); F31.9 Bipolar disorder, unspecified; E03.9 Hypothyroidism, unspecified; Z72.0 Tobacco use; Z88.2 Allergy status to sulfonamides; Z88.5 Allergy status to narcotic agent; Z88.6 Allergy status to analgesic agent; Z88.8 Allergy status to other drugs, medicaments and biological substances
CPT/HCPCS: 36415; 70450; 80048; 82962; 85027; 99284

== ENCOUNTER 2017-09-14 13:55 | Emergency (ER) | payer OTHER ==
--- NOTE | 2017-09-14 14:45 | ER ---
Nurse's Notes [facility] Name: Tana Rao Age: 42 yrs Sex: Female : 1975 Arrival Date: 09/14/2017 Time: 13:55 Bed Waiting Private MD: PHOENIX BARBA Diagnosis: Presentation: 09/14 14:28 Presenting complaint:. ph 14:44 Presenting complaint:. ph ED Course: 13:55 Patient arrived in ED. sb2 13:56 PHOENIX BARBA is Private Physician. sb2 14:29 Patient's name was called from ER lobby. No response. Unable to locate patient. Will ph disposition as left without being seen by a provider. Administered Medications: No medications were administered Outcome: 14:45 Patient left the ED. ph Signatures: Luz Elena Ingram, RN RN Amanda Crowell sb2
== END 2017-09-14 14:45 | disposition left against medical advice (07) ==
LOC: ER 13:55
DX: R53.1 Weakness (principal); Z88.5 Allergy status to narcotic agent; Z88.2 Allergy status to sulfonamides; Z88.8 Allergy status to other drugs, medicaments and biological substances; F17.200 Nicotine dependence, unspecified, uncomplicated; E03.9 Hypothyroidism, unspecified; M06.9 Rheumatoid arthritis, unspecified; G35 Multiple sclerosis
CPT/HCPCS: 99281

== ENCOUNTER 2017-09-18 23:23 | Emergency (ER) | payer OTHER ==
--- NOTE | 2017-09-18 23:51 | EDPHYS ---
Physician Documentation [facility] Name: Tana Rao Age: 42 yrs Sex: Female : 1975 Arrival Date: 09/18/2017 Time: 23:33 Bed 8 Private MD: ED Physician Kevin Nichols HPI: 09/18 23:48 This 42 yrs old Female presents to ER via Unassigned with complaints of gs Dizziness. 23:48 The patient presents with dizziness. Onset: The symptoms/episode began/occurred 5 gs year(s) ago, and became persistent. Modifying factors: the symptoms are aggravated by standing up. Associated signs and symptoms: Pertinent negatives: chest pain, shortness of breath, syncope. Severity of symptoms: At their worst the symptoms were moderate in the emergency department the symptoms are unchanged. The patient has experienced similar episodes in the past, chronically. Historical: - Allergies: 23:49 Demerol; gs 23:49 ketorolac tromethamine; gs 23:49 GABAPENTIN; gs 23:49 Lyrica; gs 23:49 sulfamethoxazole-trimethoprim; gs 23:49 Tramadol HCl; gs - PMHx: 23:49 Anxiety; Bipolar disorder; Chronic pain; Fibromyalgia; Multiple Sclerosis; Rheumatoid gs Arthritis; UTI; Hypothyroidism; - Immunization history:: Adult Immunizations unknown. - Social history:: The patient lives on the [place], Smoking status: Patient uses tobacco products, smokes one pack cigarettes per day. Patient/guardian denies using alcohol, street drugs, IV drugs. - Ebola Screening: : No symptoms or risks identified at this time. ROS: 23:49 All other systems are negative. gs Exam: 23:49 Head/Face: Normocephalic, atraumatic. Eyes: Pupils equal round and reactive to light, gs extra-ocular motions intact. Lids and lashes normal. Conjunctiva and sclera are non-icteric and not injected. Cornea within normal limits. Periorbital areas with no swelling, redness, or edema. ENT: Nares patent. No nasal discharge, no septal abnormalities noted. Tympanic membranes are normal and external auditory canals are clear. Oropharynx with no redness, swelling, or masses, exudates, or evidence of obstruction, uvula midline. Mucous membranes moist. Neck: Trachea midline, no thyromegaly or masses palpated, and no cervical lymphadenopathy. Supple, full range of motion without nuchal rigidity, or vertebral point tenderness. No Meningismus. Chest/axilla: Normal chest wall appearance and motion. Nontender with no deformity. No lesions are appreciated. Cardiovascular: Regular rate and rhythm with a normal S1 and S2. No gallops, murmurs, or rubs. Normal PMI, no JVD. No pulse deficits. Respiratory: Lungs have equal breath sounds bilaterally, clear to auscultation and percussion. No rales, rhonchi or wheezes noted. No increased work of breathing, no retractions or nasal flaring. Abdomen/GI: Soft, non-tender, with normal bowel sounds. No distension or tympany. No guarding or rebound. No evidence of tenderness throughout. Back: No spinal tenderness. No costovertebral tenderness. Full range of motion. Female : Normal external genitalia. Skin: Warm, dry with normal turgor. Normal color with no rashes, no lesions, and no evidence of cellulitis. Neuro: Awake and alert, GCS 15, oriented to person, place, time, and situation. Cranial nerves II-XII grossly intact. Motor strength 5/5 in all extremities. Sensory grossly intact. Cerebellar exam normal. Normal gait. 23:49 Constitutional: The patient appears alert, awake. 23:49 Musculoskeletal/extremity: Circulation is intact in all extremities. Joints: the left hip displays painful range of motion, no shortening chronic hip pain. 23:49 Psych: Patient has no thoughts/intents to harm self or others. Judgement / Insight is impaired. Vital Signs: 23:48 BP 137 / 74; Pulse 78; Resp 18; Temp 97.5; Pulse Ox 97% on R/A; Weight 55.34 kg; Height aa1 5 ft. 7 in. (170.18 cm); Pain 10/10; 09/19 00:23 BP 110 / 74; Pulse 82; Resp 18; Pulse Ox 100% on R/A; aa1 09/18 23:48 Body Mass Index 19.11 (55.34 kg, 170.18 cm) aa1 MDM: 09/18 23:47 Patient medically screened. gs 23:49 Data reviewed: vital signs, nurses notes. gs Administered Medications: No medications were administered Disposition: 09/18/17 23:50 Discharged to Home. Impression: Dizziness and giddiness, Malingerer [conscious simulation]. - Condition is Stable. - Discharge Instructions: Dizziness. - Medication Reconciliation Form, Thank You Letter, Antibiotic Education, Prescription Opioid Use form. - Follow up: Private Physician; When: 2 - 3 days; Reason: Re-evaluation by your physician. Signatures: Jeanne Apple RN RN aa1 Kevin Nichols MD MD gs Corrections: (The following items were deleted from the chart) 09/19 00:24 09/18 23:50 09/18/2017 23:50 Discharged to Home. Impression: Dizziness and giddiness; aa1 Malingerer [conscious simulation]. Condition is Stable. Forms are Medication Reconciliation Form, Thank You Letter, Antibiotic Education, Prescription Opioid Use. Follow up: Private Physician; When: 2 - 3 days; Reason: Re-evaluation by your physician. gs
[2017-09-19] MEDS ORDERED: ACETAMINOPHEN 500 MG TAB ONE (00:14)
--- NOTE | 2017-09-19 00:25 | ER ---
Nurse's Notes [facility] Name: Tana Rao Age: 42 yrs Sex: Female : 1975 Arrival Date: 09/18/2017 Time: 23:33 Bed 8 Private MD: Diagnosis: Dizziness and giddiness;Malingerer [conscious simulation] Presentation: 09/18 23:48 Presenting complaint: Patient states: she has been having dizzy spells and blackouts aa1 everyday since March 2016 and it has just been getting worse every day. States her neurologist has told her she has a concussion but her symptoms keep getting worse. Also reports she has an appt on Oct 01 to get back on pain management. Transition of care: patient was not received from another setting of care. Onset of symptoms was March 2016. Risk Assessment: Do you want to hurt yourself or someone else? Patient reports no desire to harm self or others. Initial Sepsis Screen: Does the patient meet any 2 criteria? No. Patient's initial sepsis screen is negative. Does the patient have a suspected source of infection? No. Patient's initial sepsis screen is negative. Care prior to arrival: None. 23:48 Method Of Arrival: EMS: [facility] aa1 23:48 Acuity: AMY 3 aa1 Historical: - Allergies: 23:49 Demerol; gs 23:49 ketorolac tromethamine; gs 23:49 GABAPENTIN; gs 23:49 Lyrica; gs 23:49 sulfamethoxazole-trimethoprim; gs 23:49 Tramadol HCl; gs - PMHx: 23:49 Anxiety; Bipolar disorder; Chronic pain; Fibromyalgia; Multiple Sclerosis; Rheumatoid gs Arthritis; UTI; Hypothyroidism; - Immunization history:: Adult Immunizations unknown. - Social history:: The patient lives [place], Smoking status: Patient uses tobacco products, smokes one pack cigarettes per day. Patient/guardian denies using alcohol, street drugs, IV drugs. - Ebola Screening: : No symptoms or risks identified at this time. Screenin:54 Abuse screen: Denies threats or abuse. Denies injuries from another. Nutritional aa1 screening: No deficits noted. Tuberculosis screening: No symptoms or risk factors identified. Fall Risk Gait- Impaired (20 pts.). Assessment: 23:54 General: Appears in no apparent distress. comfortable, unkempt, Behavior is calm, aa1 cooperative, appropriate for age. Pain: Complains of pain in left leg Pain currently is 10 out of 10 on a pain scale. Pain began years ago. Neuro: Level of Consciousness is awake, alert, obeys commands, Oriented to person, place, time, situation, Moves all extremities. 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 Cardiovascular: Heart tones S1 S2 present Rhythm is regular. Respiratory: Airway is patent Respiratory effort is even, unlabored, Respiratory pattern is regular, symmetrical. GI: No signs and/or symptoms were reported involving the gastrointestinal system. : No signs and/or symptoms were reported regarding the genitourinary system. EENT: No signs and/or symptoms were reported regarding the EENT system. Derm: Skin is intact, is healthy with good turgor, Skin is pink, warm \T\ dry. Musculoskeletal: Circulation, motion, and sensation intact. Capillary refill < 3 seconds, Range of motion: limited in left hip. 09/19 00:23 Reassessment: Patient appears in no apparent distress at this time. Patient is alert, aa1 oriented x 3, equal unlabored respirations, skin warm/dry/pink. Discussed need for f/u with neurologist. Pt amb to lobby with steady gait. Vital Signs: 09/18 23:48 BP 137 / 74; Pulse 78; Resp 18; Temp 97.5; Pulse Ox 97% on R/A; Weight 55.34 kg; Height aa1 5 ft. 7 in. (170.18 cm); Pain 10/10; 09/19 00:23 BP 110 / 74; Pulse 82; Resp 18; Pulse Ox 100% on R/A; aa1 09/18 23:48 Body Mass Index 19.11 (55.34 kg, 170.18 cm) aa1 ED Course: 09/18 23:33 Patient arrived in ED. aa1 23:34 Kevin Nichols MD is Attending Physician. gs 23:47 Jeanne Apple, ADAM is Primary Nurse. aa1 23:48 Arm band placed on right wrist. Patient placed in an exam room, on a stretcher. aa1 23:52 Triage completed. aa1 23:54 Patient has correct armband on for positive identification. Bed in low position. Call aa1 light in reach. Pulse ox on. NIBP on. Warm blanket given. 09/19 00:23 No provider procedures requiring assistance completed. Patient did not have IV access aa1 during this emergency room visit. Administered Medications: No medications were administered Outcome: 09/18 23:50 Discharge ordered by . 09/19 00:23 Discharged to home ambulatory. aa1 Condition: good Discharge instructions given to patient, Instructed on discharge instructions, follow up and referral plans. Demonstrated understanding of instructions, follow-up care. 00:24 Patient left the ED. aa1 Signatures: Jeanne Apple, RN RN aa1 Kevin Nichols MD MD
[2017-09-19 00:33] VITALS: TEMP 97.5
[2017-09-19 00:34] VITALS: BP 110/74; O2SAT 100
== END 2017-09-19 00:24 | disposition home or self-care (01) ==
LOC: ER 23:23
DX: R42 Dizziness and giddiness (principal); G35 Multiple sclerosis; E03.9 Hypothyroidism, unspecified; F17.210 Nicotine dependence, cigarettes, uncomplicated; Z76.5 Malingerer [conscious simulation]; Z88.6 Allergy status to analgesic agent; Z88.2 Allergy status to sulfonamides; Z88.8 Allergy status to other drugs, medicaments and biological substances
CPT/HCPCS: 99283

== ENCOUNTER 2017-11-12 22:10 | Emergency (ER) | payer OTHER ==
[2017-11-12] MEDS ORDERED: NA CHLORIDE 0.9% 1,000 ML ONE (22:50)
[2017-11-13 00:11] LABS: Absolute Lymphocytes (CBC) 1.7 K/uL (0.7-4.9); Absolute Monocytes 0.7 K/uL (0.1-1.3); Absolute Neutrophil 4.9 K/uL (1.8-8.0); Basophils % 0.7 % (0-1.3); Eosinophils % 4.6 % (0-4.4); MCV 75.7 fL (80-100); MPV 8.4 fL (7.6-11.3); Monocytes % 8.8 % (3.3-12.3); RBC Red Blood Cell Count 4.89 M/uL (3.86-4.86)
[2017-11-13 00:28] LABS: Potassium 3.9 mmol/L (3.5-5.1)
--- NOTE | 2017-11-13 00:33 | EDPHYS ---
Physician Documentation [facility] Name: Tana Rao Age: 42 yrs Sex: Female : 1975 Arrival Date: 11/12/2017 Time: 22:11 Bed 3 Private MD: ED Physician Kevin Nichols HPI: 11/13 01:43 This 42 yrs old Female presents to ER via EMS with complaints of body cramps. gs 01:43 The patient presents to the emergency department with weakness of the left lower gs extremity, that is mild, right lower extremity, that is mild, cramping. Onset: The symptoms/episode began/occurred 1 week(s) ago, and became persistent. Associated signs and symptoms: Pertinent negatives: fever. Severity of symptoms: At their worst the symptoms were mild in the emergency department the symptoms are unchanged. The patient has experienced similar episodes in the past, several times. Historical: - Allergies: 11/12 22:22 Demerol; ak1 22:22 ketorolac tromethamine; ak1 22:22 GABAPENTIN; ak1 22:22 Lyrica; ak1 22:22 Tramadol HCl; ak1 22:22 sulfamethoxazole-trimethoprim; ak1 - PMHx: 22:22 Anxiety; Bipolar disorder; Chronic pain; Fibromyalgia; Hypothyroidism; Multiple ak1 Sclerosis; Rheumatoid Arthritis; UTI; Parkinsons; - Immunization history:: Adult Immunizations unknown. - Social history:: Smoking status: unknown. - Ebola Screening: : No symptoms or risks identified at this time. ROS: 11/13 01:43 All other systems are negative. gs Exam: 01:43 Head/Face: Normocephalic, atraumatic. Eyes: Pupils equal round and reactive to light, gs extra-ocular motions intact. Lids and lashes normal. Conjunctiva and sclera are non-icteric and not injected. Cornea within normal limits. Periorbital areas with no swelling, redness, or edema. ENT: Nares patent. No nasal discharge, no septal abnormalities noted. Tympanic membranes are normal and external auditory canals are clear. Oropharynx with no redness, swelling, or masses, exudates, or evidence of obstruction, uvula midline. Mucous membranes moist. Neck: Trachea midline, no thyromegaly or masses palpated, and no cervical lymphadenopathy. Supple, full range of motion without nuchal rigidity, or vertebral point tenderness. No Meningismus. Chest/axilla: Normal chest wall appearance and motion. Nontender with no deformity. No lesions are appreciated. Cardiovascular: Regular rate and rhythm with a normal S1 and S2. No gallops, murmurs, or rubs. Normal PMI, no JVD. No pulse deficits. Respiratory: Lungs have equal breath sounds bilaterally, clear to auscultation and percussion. No rales, rhonchi or wheezes noted. No increased work of breathing, no retractions or nasal flaring. Abdomen/GI: Soft, non-tender, with normal bowel sounds. No distension or tympany. No guarding or rebound. No evidence of tenderness throughout. Back: No spinal tenderness. No costovertebral tenderness. Full range of motion. Skin: Warm, dry with normal turgor. Normal color with no rashes, no lesions, and no evidence of cellulitis. MS/ Extremity: Pulses equal, no cyanosis. Neurovascular intact. Full, normal range of motion. Neuro: Awake and alert, GCS 15, oriented to person, place, time, and situation. Cranial nerves II-XII grossly intact. Motor strength 5/5 in all extremities. Sensory grossly intact. Cerebellar exam normal. Normal gait. 01:43 Constitutional: The patient appears alert, awake, smells of alcohol, ETOH. Vital Signs: 11/12 22:20 BP 161 / 96; Pulse 99; Resp 22; Temp 98.6; Pulse Ox 100% on R/A; Weight 56.7 kg (R); ak1 Height 5 ft. 7 in. (170.18 cm) (R); Pain 10/10; 11/13 00:31 BP 125 / 84; Pulse 77; Resp 12; Temp 98.4; Pulse Ox 99% on R/A; ak1 11/12 22:20 Body Mass Index 19.58 (56.70 kg, 170.18 cm) ak1 MDM: 11/12 22:33 Patient medically screened. 11/13 01:43 Data reviewed: vital signs, nurses notes. Response to treatment: the patient's symptoms gs have markedly improved after treatment, and as a result, I will discharge patient. 01:43 ED course: ddx chronic pain, electrolyte abl,rhabdo,. 11/12 22:36 Order name: CBC with Diff; Complete Time: 00:21 11/12 22:36 Order name: Basic Metabolic Panel; Complete Time: 00:31 11/12 22:36 Order name: CPK; Complete Time: 00:31 Administered Medications: 11/12 22:59 Drug: NS 0.9% 1500 ml Route: IV; Rate: 1 bolus; Site: right wrist; ak1 11/13 01:03 Follow up: IV Status: Completed infusion ak1 Disposition: 11/13/17 00:32 Discharged to Home. Impression: Cramp and spasm. - Condition is Stable. - Discharge Instructions: Muscle Cramps and Spasms. - Medication Reconciliation Form, Thank You Letter, Antibiotic Education, Prescription Opioid Use form. - Follow up: Private Physician; When: 2 - 3 days; Reason: Re-evaluation by your physician. Signatures: Dispatcher [employer] Katie Hutchison RN RN ak1 Kvein Nichols MD MD gs Corrections: (The following items were deleted from the chart) 01:09 00:32 11/13/2017 00:32 Discharged to Home. Impression: Cramp and spasm. Condition is ak1 Stable. Forms are Medication Reconciliation Form, Thank You Letter, Antibiotic Education, Prescription Opioid Use. Follow up: Private Physician; When: 2 - 3 days; Reason: Re-evaluation by your physician.
--- NOTE | 2017-11-13 00:33 | ER ---
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 pt with ak1 macrobid medication that was filled 11/11/17 by Britney Ramirez. pt denies ETOH, denies drug use. Transition of care: patient was not received from another setting of care. Onset of symptoms is unknown. Risk Assessment: Do you want to hurt yourself or someone else? Patient reports no desire to harm self or others. Initial Sepsis Screen: Does the patient meet any 2 criteria? No. Patient's initial sepsis screen is negative. Does the patient have a suspected source of infection? No. Patient's initial sepsis screen is negative. Care prior to arrival: None. 22:12 Method Of Arrival: EMS: [facility] ak1 22:12 Acuity: AMY 3 ak1 Triage Assessment: 22:22 General: Appears in no apparent distress. Behavior is cooperative. Pain: Complains of ak1 pain in all over body cramps. EENT: No signs and/or symptoms were reported regarding the EENT system. Neuro: Level of Consciousness is awake, alert, obeys commands, Oriented to person, place, time, situation, Moves all extremities. Gait is unsteady, gait WNL for pt. Speech is normal. Cardiovascular: No deficits noted. Respiratory: No deficits noted. GI: No signs and/or symptoms were reported involving the gastrointestinal system. : pt with macrobid medication filled 11/11/17. Derm: No signs and/or symptoms reported regarding the dermatologic system. Musculoskeletal: Reports pain in all over body cramps. Historical: - Allergies: 22:22 Demerol; ak1 22:22 ketorolac tromethamine; ak1 22:22 GABAPENTIN; ak1 22:22 Lyrica; ak1 22:22 Tramadol HCl; ak1 22:22 sulfamethoxazole-trimethoprim; ak1 - PMHx: 22:22 Anxiety; Bipolar disorder; Chronic pain; Fibromyalgia; Hypothyroidism; Multiple ak1 Sclerosis; Rheumatoid Arthritis; UTI; Parkinsons; - Immunization history:: Adult Immunizations unknown. - Social history:: Smoking status: unknown. - Ebola Screening: : No symptoms or risks identified at this time. Screenin:23 Abuse screen: Denies threats or abuse. Denies injuries from another. Nutritional ak1 screening: No deficits noted. Tuberculosis screening: No symptoms or risk factors identified. Fall Risk None identified. Assessment: 23:00 Reassessment: Patient appears in no apparent distress at this time. No changes from ak1 previously documented assessment. see triage assessment. 11/13 00:30 Reassessment: Patient appears in no apparent distress at this time. pt resting with ak1 eyes closed, resp even and unlabored. Vital Signs: 11/12 22:20 BP 161 / 96; Pulse 99; Resp 22; Temp 98.6; Pulse Ox 100% on R/A; Weight 56.7 kg (R); ak1 Height 5 ft. 7 in. (170.18 cm) (R); Pain 10/10; 11/13 00:31 BP 125 / 84; Pulse 77; Resp 12; Temp 98.4; Pulse Ox 99% on R/A; ak1 11/12 22:20 Body Mass Index 19.58 (56.70 kg, 170.18 cm) ak1 ED Course: 11/12 22:11 Patient arrived in ED. ak1 22:13 Triage completed. ak1 22:17 Kevin Nichols MD is Attending Physician. gs 22:22 Arm band placed on Patient placed in an exam room, on a stretcher, on pulse oximetry, ak1 Patient notified of wait time. 22:23 Patient has correct armband on for positive identification. Bed in low position. Call ak1 light in reach. Side rails up X2. Pulse ox on. NIBP on. 22:40 Katie Pratt, RN is Primary Nurse. ak1 23:00 Initial lab(s) drawn, by me, sent to lab. Inserted saline lock: 24 gauge in right ak1 wrist, using aseptic technique. Blood collected. 11/13 01:03 No provider procedures requiring assistance completed. ak1 01:09 IV discontinued, intact, bleeding controlled, No redness/swelling at site. Pressure ak1 dressing applied. Administered Medications: 11/12 22:59 Drug: NS 0.9% 1500 ml Route: IV; Rate: 1 bolus; Site: right wrist; ak1 11/13 01:03 Follow up: IV Status: Completed infusion ak1 Outcome: 00:32 Discharge ordered by . 01:03 Discharged to home via wheelchair. ak1 01:03 Condition: improved 01:03 Discharge instructions given to patient, Instructed on discharge instructions, follow up and referral plans. Demonstrated understanding of instructions, follow-up care. 01:09 Patient left the ED. ak1 Signatures: Katie Pratt RN RN ak1 Kevin Nichols MD MD
[2017-11-13 01:17] VITALS: BP 125/84; TEMP 98.4; O2SAT 99
== END 2017-11-13 01:09 | disposition home or self-care (01) ==
LOC: ER 22:10
DX: R25.2 Cramp and spasm (principal); Z88.2 Allergy status to sulfonamides; Z88.5 Allergy status to narcotic agent; Z88.6 Allergy status to analgesic agent; Z88.8 Allergy status to other drugs, medicaments and biological substances
CPT/HCPCS: 36415; 80048; 82550; 85025; 96360; 96361; 99284; J7030

== ENCOUNTER 2018-01-23 15:45 | Emergency (ER) | payer OTHER ==
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
[2018-01-23 17:15] VITALS: BP 157/102; TEMP 98; O2SAT 98
--- NOTE | 2018-01-24 11:48 | EKG ---
Test Date: 2018-01-23 Test Time: 16:12:22 Boiler Inspector: SUSY MEASUREMENT RESULTS: Intervals: Rate: 114 MD: 132 QRSD: 76 QT: 328 QTc: 452 [place]: P: 77 MD: 132 QRS: 76 T: 73 INTERPRETIVE STATEMENTS: Sinus tachycardia Right atrial enlargement Abnormal ECG Compared to ECG 08/27/2017 19:51:13 Atrial abnormality now present Sinus rhythm no longer present ST (T wave) deviation no longer present Electronically Signed On 01-24-18 11:46:33 QUALITY CONTROL PROJECTIONIST by Laci Espinoza
== END 2018-01-23 16:56 | disposition left against medical advice (07) ==
LOC: ER 15:45
DX: Z53.21 Procedure and treatment not carried out due to patient leaving prior to being seen by health care provider (principal)
CPT/HCPCS: 93005; 99282

== ENCOUNTER 2018-01-24 10:52 | Emergency (ER) | payer OTHER ==
[2018-01-24 13:33] LABS: Absolute Lymphocytes (CBC) 2.2 K/uL (0.7-4.9); Absolute Monocytes 0.5 K/uL (0.1-1.3); Absolute Neutrophil 3.3 K/uL (1.8-8.0); Basophils % 0.9 % (0-1.3); Eosinophils % 6.6 % (0-4.4); Hematocrit 42.4 % (36.0-45.0); Lymphocytes % 33.8 % (15.3-44.8); MCH 24.5 pg (27.0-35.0); MCV 75.4 fL (80-100); MPV 7.9 fL (7.6-11.3); Monocytes % 8.1 % (3.3-12.3); RBC Red Blood Cell Count 5.61 M/uL (3.86-4.86)
--- NOTE | 2018-01-24 13:36 | RAD REPORT ---
EXAM DESCRIPTION: Rinku Single View01/24/2018 1:11 pm CLINICAL HISTORY: Chest pain COMPARISON: August 2017 FINDINGS: The lungs appear clear of acute infiltrate. The heart is normal size IMPRESSION: No acute abnormalities displayed
[2018-01-24 13:46] LABS: Protime INR 0.9
[2018-01-24 13:54] LABS: ALT/SGPT 20 U/L (12-78); AST/SGOT 21 U/L (15-37); Albumin 3.7 g/dL (3.4-5.0); Alkaline Phosphatase 141 U/L (45-117); BUN Blood Urea Nitrogen 18 mg/dL (7-18); Bicarbonate 28 mmol/L (21-32); Bilirubin Direct < 0.1 mg/dL (0-0.2); Bilirubin Total 0.2 mg/dL (0.2-1.0); Glucose Level 77 mg/dL (74-106); Magnesium 2.3 mg/dL (1.8-2.4); NT PRO-BNP 35 pg/mL (<125); Potassium 3.9 mmol/L (3.5-5.1); Protein, Total 7.7 g/dL (6.4-8.2); Sodium Level 141 mmol/L (136-145); Troponin (Emerg Dept Use Only) < 0.02 ng/mL (0.0-0.045)
[2018-01-24 13:55] LABS: Blood Morphology Comment NOT SEEN (NOT SEEN); Platelet Estimate ADEQ; Urine White Blood Cell Casts OK
--- NOTE | 2018-01-24 13:57 | EKG ---
Test Date: 2018-01-24 Test Time: 12:49:13 Exhaust And Muffler Repairer: BRANDEE MEASUREMENT RESULTS: Intervals: Rate: 84 IL: 134 QRSD: 78 QT: 386 QTc: 456 [place]: P: 77 IL: 134 QRS: 68 T: 53 INTERPRETIVE STATEMENTS: Normal sinus rhythm Right atrial enlargement Borderline ECG Compared to ECG 01/23/2018 16:12:22 Sinus tachycardia no longer present Electronically Signed On 01-24-18 13:56:39 PHYSICAL DIRECTOR by Laci Espinoza
--- NOTE | 2018-01-24 14:37 | ER ---
Nurse's Notes [facility] Name: Tana Rao Age: 42 yrs Sex: Female : 1975 Arrival Date: 01/24/2018 Time: 10:54 Bed 9 Private MD: None, None Diagnosis: RIB CONTUSION;Chest pain, unspecified Presentation: 01/24 10:59 Presenting complaint: Patient states: Pain in low back and right lower ribs. Eloped aj from this ER last night for same complaints. Ambulated with steady gait to triage. Patient stated "I will be outside smoking when you call me back.". Transition of care: patient was not received from another setting of care. Onset of symptoms was January 23, 2018. Risk Assessment: Do you want to hurt yourself or someone else? Patient reports no desire to harm self or others. Initial Sepsis Screen: Does the patient meet any 2 criteria? No. Patient's initial sepsis screen is negative. Does the patient have a suspected source of infection? No. Patient's initial sepsis screen is negative. Care prior to arrival: None. 10:59 Method Of Arrival: Ambulatory 10:59 Acuity: AMY 4 aj Triage Assessment: 11:01 General: Appears in no apparent distress. comfortable, Behavior is calm, cooperative, aj appropriate for age. Pain: Complains of pain in low back area, right ninth rib and right tenth rib. Neuro: Level of Consciousness is awake, alert, obeys commands, Oriented to person, place, time, situation, Appropriate for age. Respiratory: Airway is patent Respiratory effort is even, unlabored, Respiratory pattern is regular, symmetrical. GI: No signs and/or symptoms were reported involving the gastrointestinal system. Abdomen is flat, Reports. Derm: Skin is intact, is healthy with good turgor, Skin is pink, warm \\T\\ dry. normal. Musculoskeletal: Reports pain in low back area, right ninth rib and right tenth rib. 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 - Social history:: Smoking status: Patient uses tobacco products, smokes one pack cigarettes per day. - Ebola Screening: : Patient negative for fever greater than or equal to 101.5 degrees Fahrenheit, and additional compatible Ebola Virus Disease symptoms Patient denies exposure to infectious person Patient denies travel to an Ebola-affected area in the 21 days before illness onset No symptoms or risks identified at this time. Screenin:00 Abuse screen: Denies threats or abuse. Denies injuries from another. Nutritional iw screening: No deficits noted. Tuberculosis screening: No symptoms or risk factors identified. Fall Risk Fall in past 12 months (25 points). Assessment: 11:15 General: Appears in no apparent distress. Behavior is calm, cooperative. Pain: iw Complains of pain in chest and back and low back area. Neuro: Level of Consciousness is awake, alert, Moves all extremities. Full function. Cardiovascular: Patient's skin is warm and dry. Respiratory: Respiratory effort is even, unlabored, Respiratory pattern is regular, symmetrical. GI: Abdomen is flat, distended. Derm: Skin is intact, is healthy with good turgor. Musculoskeletal: Range of motion: intact in all extremities. 14:14 Reassessment: Patient appears in no apparent distress at this time. Patient and/or iw family updated on plan of care and expected duration. Pain level reassessed. Patient is alert, oriented x 3, equal unlabored respirations, skin warm/dry/pink. pt requesting sandwiches for herself and her friend. Vital Signs: 11:01 BP 146 / 74; Pulse 93; Resp 20; Temp 97.7; Pulse Ox 100% on R/A; Weight 56.7 kg; Height aj 5 ft. 7 in. (170.18 cm); 11:01 Body Mass Index 19.58 (56.70 kg, 170.18 cm) ED Course: 10:54 Patient arrived in ED. rg4 10:54 None, None is Private Physician. rg4 11:01 Triage completed. aj 11:01 Arm band placed on left wrist. Patient placed in waiting room, Patient notified of wait aj time. 11:50 Patient has correct armband on for positive identification. iw 12:27 Alisa Edmondson, RN is Primary Nurse. iw 12:33 Dylan Adams PA is PHCP. [facility] 12:33 Celestine Tfaoya MD is Attending Physician. [facility] 12:53 EKG done, by tool and die technician. reviewed by Dylan FINLEY. at1 13:03 X-ray completed. Portable x-ray completed in exam room. Patient tolerated procedure jb2 well. 13:12 XRAY Chest (1 view) In Process Unspecified. EDMS 15:14 No provider procedures requiring assistance completed. Patient did not have IV access iw during this emergency room visit. Administered Medications: 14:56 Drug: Zofran 4 mg Route: PO; iw 14:56 Drug: Flexeril 10 mg Route: PO; iw Outcome: 14:36 Discharge ordered by . [facility] 15:00 Discharged to home ambulatory, with friend. iw 15:00 Condition: good 15:00 Discharge instructions given to patient, friend, Instructed on discharge instructions, follow up and referral plans. medication usage, Demonstrated understanding of instructions, follow-up care, medications, Prescriptions given X 2. 15:05 Patient left the ED. iw Signatures: Dispatcher [employer] EDMS Danette Nolasco, RN RN Dylan Muñoz PA PA jmm Buechter, Jesse jb2 Alisa Edmondson, RN RN Danette Roland, aspnet developer EKG Tat1 Malaika Mireles rg4
--- NOTE | 2018-01-24 14:37 | EDPHYS ---
Physician Documentation [facility] Name: Tana Rao Age: 42 yrs Sex: Female : 1975 Arrival Date: 01/24/2018 Time: 10:54 Bed 9 Private MD: None, None ED Physician Celestine Tafoya HPI: 01/24 12:49 This 42 yrs old Female presents to ER via Ambulatory with complaints of pain. jmm 12:49 This is a 42 year old female with a history of MS, anxiety, bipolar, chronic pain, jmm fibromyalgia, hypothyroidism that presents to the ED with complaints of pain to her back and right side of her rib cage which began after a fall which occurred this past Monday. Patient states her MS causes falls on a regular basis. Patient states she eloped from the ED yesterday with similar pain. Patient also complains of chest pain beginning yesterday. Patient is a tobacco user. . 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 - Social history:: Smoking status: Patient uses tobacco products, smokes one pack cigarettes per day. - Ebola Screening: : Patient negative for fever greater than or equal to 101.5 degrees Fahrenheit, and additional compatible Ebola Virus Disease symptoms Patient denies exposure to infectious person Patient denies travel to an Ebola-affected area in the 21 days before illness onset No symptoms or risks identified at this time. ROS: 12:49 Constitutional: Negative for fever, chills, and weight loss, Eyes: Negative for injury, jmm pain, redness, and discharge. 12:49 Back: Negative for injury and pain, : Negative for injury, bleeding, discharge, and swelling, MS/Extremity: Negative for injury and deformity, Skin: Negative for injury, rash, and discoloration. 12:49 Cardiovascular: Positive for chest pain. 12:49 Abdomen/GI: Positive for 12:49 Abdomen/GI: Positive for nausea. 12:49 Neuro: Positive for weakness. 12:49 All other systems are negative. Exam: 12:49 Head/Face: atraumatic. Eyes: EOMI, no conjunctival erythema appreciated ENT: Moist [facility] Mucus Membranes Neck: Trachea midline, Supple Cardiovascular: Regular rate and rhythm. No edema appreciated 12:49 Constitutional: The patient appears alert, awake, anxious. 12:49 Chest/axilla: right sided rib pain on palpation. 12:49 Cardiovascular: Rate: normal, Rhythm: regular. 12:49 Respiratory: the patient does not display signs of respiratory distress, Respirations: normal, Breath sounds: are clear throughout. 12:49 Abdomen/GI: Inspection: abdomen appears normal, Bowel sounds: normal, Palpation: abdomen is soft and non-tender. 12:49 Back: ROM is normal. 12:49 Musculoskeletal/extremity: ROM: intact in all extremities. 12:49 Skin: Appearance: Color: normal in color. 12:49 Neuro: Orientation: is normal, Mentation: is normal, Memory: is normal. 12:49 Psych: Behavior/mood is pleasant, cooperative. Vital Signs: 11:01 BP 146 / 74; Pulse 93; Resp 20; Temp 97.7; Pulse Ox 100% on R/A; Weight 56.7 kg; Height aj 5 ft. 7 in. (170.18 cm); 11:01 Body Mass Index 19.58 (56.70 kg, 170.18 cm) MDM: 12:[address] [facility] 12:48 Data reviewed: vital signs, nurses notes. Counseling: I had a detailed discussion with [facility] the patient and/or guardian regarding:. 14:28 Data reviewed: EKG, radiologic studies, plain films. Counseling: I had a detailed [facility] discussion with the patient and/or guardian regarding: the historical points, exam findings, and any diagnostic results supporting the discharge/admit diagnosis, lab results, radiology results, the need for outpatient follow up, to return to the emergency department if symptoms worsen or persist or if there are any questions or concerns that arise at home. ED course: HEART SCORE = 1. 01/24 12:43 Order name: Basic Metabolic Panel; Complete Time: 13:56 [facility] 01/24 12:43 Order name: CBC with Diff; Complete Time: 13:56 [facility] 01/24 12:43 Order name: LFT's; Complete Time: 13:56 [facility] 01/24 12:43 Order name: Magnesium; Complete Time: 13:56 [facility] 01/24 12:43 Order name: NT PRO-BNP; Complete Time: 13:56 [facility] 01/24 12:43 Order name: PT-INR; Complete Time: 13:56 [facility] 01/24 12:43 Order name: Troponin (emerg Dept Use Only); Complete Time: 13:56 [facility] 01/24 12:43 Order name: XRAY Chest (1 view); Complete Time: 13:50 [facility] 01/24 12:43 Order name: EKG; Complete Time: 12:44 [facility] 01/24 12:43 Order name: Cardiac monitoring; Complete Time: 14:17 [facility] 01/24 12:43 Order name: EKG - Nurse/Tech; Complete Time: 14:17 [facility] 01/24 13:39 Order name: CBC Smear Scan; Complete Time: 13:56 [facility] 01/24 12:43 Order name: Labs collected and sent; Complete Time: 14:17 [facility] 01/24 12:43 Order name: O2 Per Protocol; Complete Time: 14:17 [facility] 01/24 12:43 Order name: O2 Sat Monitoring; Complete Time: 14:17 [facility] Administered Medications: 14:56 Drug: Zofran 4 mg Route: PO; iw 14:56 Drug: Flexeril 10 mg Route: PO; iw Disposition: 17:00 Co-signature as Attending Physician, Celestine Tafoya MD I agree with the assessment and angela plan of care. Disposition: 01/24/18 14:36 Discharged to Home. Impression: RIB CONTUSION, Chest pain, unspecified. - Condition is Stable. - Discharge Instructions: Rib Contusion, Nonspecific Chest Pain. - Prescriptions for Cyclobenzaprine 10 mg Oral Tablet - take 1 tablet by ORAL route every 8 hours As needed; 30 tablet. - Medication Reconciliation Form, Thank You Letter, Antibiotic Education, Prescription Opioid Use form. - Follow up: Private Physician; When: 2 - 3 days; Reason: Recheck today's complaints, Continuance of care, Re-evaluation by your physician. Signatures: Dispatcher [employer] EDMS Nolasco, Danette, RN RN aj Michelet, Celestine, MD MD angela Mickail, Dylan, PA PA jmm Delvis, Alisa, RN RN iw Corrections: (The following items were deleted from the chart) 14:17 12:43 IV Saline Lock ordered. ainsley iw 15:05 14:36 01/24/2018 14:36 Discharged to Home. Impression: RIB CONTUSION; Chest pain, iw unspecified. Condition is Stable. Forms are Medication Reconciliation Form, Thank You Letter, Antibiotic Education, Prescription Opioid Use. Follow up: Private Physician; When: 2 - 3 days; Reason: Recheck today's complaints, Continuance of care, Re-evaluation by your physician. ainsley
[2018-01-24] MEDS ORDERED: ONDANSETRON 4 MG (ODT) TAB ONE (14:59)
[2018-01-24] MEDS ORDERED: CYCLOBENZAPRINE 10 MG TAB ONE (14:59)
[2018-01-24 16:26] VITALS: BP 146/74; TEMP 97.7; O2SAT 100
== END 2018-01-24 15:05 | disposition home or self-care (01) ==
LOC: ER 10:52
DX: S20.219A Contusion of unspecified front wall of thorax, initial encounter (principal); W19.XXXA Unspecified fall, initial encounter; Z88.2 Allergy status to sulfonamides; Z88.5 Allergy status to narcotic agent; Z88.8 Allergy status to other drugs, medicaments and biological substances; G35 Multiple sclerosis; F31.9 Bipolar disorder, unspecified; F17.210 Nicotine dependence, cigarettes, uncomplicated
CPT/HCPCS: 36415; 71045; 80048; 80076; 83735; 83880; 84484; 85025; 85610; 93005; 99284

== ENCOUNTER 2018-04-09 10:52 | Emergency (ER) | payer SELFPAY ==
--- NOTE | 2018-04-09 11:46 | EDPHYS ---
Physician Documentation [facility] Name: Tana Rao Age: 43 yrs Sex: Female : 1975 Arrival Date: 04/09/2018 Time: 10:55 Bed 25 Private MD: ED Physician Cedric Mckeon HPI: 04/09 11:44 This 43 yrs old Female presents to ER via Wheelchair with complaints of Pain ma2 All Over. 11:44 Onset: The symptoms/episode began/occurred gradually, 1 week(s) ago. Severity of ma2 symptoms: At their worst the symptoms were mild in the emergency department the symptoms are unchanged. The patient has experienced similar episodes in the past. 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 - Social history:: Smoking status: Patient uses tobacco products, smokes one-half pack cigarettes per day, Patient/guardian denies using alcohol, street drugs, The patient lives alone. - Ebola Screening: : No symptoms or risks identified at this time. - Family history:: not pertinent. - Hospitalizations: : No recent hospitalization is reported. ROS: 11:44 Constitutional: Negative for fever, chills, and weight loss, Cardiovascular: Negative ma2 for chest pain, palpitations, and edema, Respiratory: Negative for shortness of breath, cough, wheezing, and pleuritic chest pain. 11:44 All other systems are negative. Exam: 11:44 Constitutional: This is a well developed, well nourished patient who is awake, alert, ma2 and in no acute distress. Cardiovascular: Regular rate and rhythm with a normal S1 and S2. No gallops, murmurs, or rubs. Normal PMI, no JVD. No pulse deficits. Respiratory: Lungs have equal breath sounds bilaterally, clear to auscultation and percussion. No rales, rhonchi or wheezes noted. No increased work of breathing, no retractions or nasal flaring. Abdomen/GI: Soft, non-tender, with normal bowel sounds. No distension or tympany. No guarding or rebound. No evidence of tenderness throughout. MS/ Extremity: Pulses equal, no cyanosis. Neurovascular intact. Full, normal range of motion. Neuro: Awake and alert, GCS 15, oriented to person, place, time, and situation. Cranial nerves II-XII grossly intact. Motor strength 5/5 in all extremities. Sensory grossly intact. Cerebellar exam normal. Normal gait. Psych: Awake, alert, with orientation to person, place and time. Behavior, mood, and affect are within normal limits. 11:44 Psych: Behavior/mood is anxious. ma2 Vital Signs: 11:04 BP 96 / 65; Pulse 91; Resp 16 S; Temp 98.0(TE); Pulse Ox 100% on R/A; Weight 56.25 kg aa5 (R); Height 5 ft. 7 in. (170.18 cm) (R); Pain 10/10; 11:38 BP 99 / 69; Pulse 75; Resp 20; Pulse Ox 100% on R/A; aj 11:04 Body Mass Index 19.42 (56.25 kg, 170.18 cm) aa5 MDM: 11:17 Patient medically screened. ma2 11:44 Differential Diagnosis anxiety, drug withdrawal vs alcohol withdrawal has her ma2 medication just refilled . Data reviewed: vital signs, nurses notes. Response to treatment: the patient's symptoms have resolved after treatment. Administered Medications: 11:55 Drug: Valium 2 mg Route: PO; aj 12:08 Follow up: Response: No adverse reaction Disposition: 04/09/18 11:46 Discharged to Home. Impression: Anxiety disorder, unspecified. - Condition is Stable. - Discharge Instructions: Generalized Anxiety Disorder. - Medication Reconciliation Form, Thank You Letter, Antibiotic Education, Prescription Opioid Use form. - Follow up: Private Physician; When: Tomorrow; Reason: Continuance of care. Signatures: Danette Nolasco RN RN Gladys Damian RN RN aa5 Cedric Mckeon MD MD ma2 Corrections: (The following items were deleted from the chart) 12:08 11:46 04/09/2018 11:46 Discharged to Home. Impression: Anxiety disorder, unspecified. aj Condition is Stable. Forms are Medication Reconciliation Form, Thank You Letter, Antibiotic Education, Prescription Opioid Use. Follow up: Private Physician; When: Tomorrow; Reason: Continuance of care. ma2
--- NOTE | 2018-04-09 11:46 | ER ---
Nurse's Notes [facility] Name: Tana Rao Age: 43 yrs Sex: Female : 1975 Arrival Date: 04/09/2018 Time: 10:55 Bed 25 Private MD: Diagnosis: Anxiety disorder, unspecified Presentation: 04/09 11:02 Presenting complaint: Patient states: "I've been nauseated for about 2 months now every aa5 time I eat or drink something". pt c/o pain to whole body, pt states "It started with the whole right side hurting and now it's the whole left side as well". Transition of care: patient was not received from another setting of care. Onset of symptoms was January 2018. Risk Assessment: Do you want to hurt yourself or someone else? Patient reports no desire to harm self or others. Initial Sepsis Screen: Does the patient meet any 2 criteria? No. Patient's initial sepsis screen is negative. Does the patient have a suspected source of infection? No. Patient's initial sepsis screen is negative. Care prior to arrival: None. 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 - Social history:: Smoking status: Patient uses tobacco products, smokes one-half pack cigarettes per day, Patient/guardian denies using alcohol, street drugs, The patient lives alone. - Ebola Screening: : No symptoms or risks identified at this time. - Family history:: not pertinent. - Hospitalizations: : No recent hospitalization is reported. Screenin:36 Abuse screen: Denies threats or abuse. Denies injuries from another. Nutritional aj screening: No deficits noted. Tuberculosis screening: No symptoms or risk factors identified. Fall Risk None identified. Assessment: 11:36 General: Appears in no apparent distress. comfortable, unkempt, Behavior is drowsy, aj Smells of body odor. Pain: Complains of pain in all over. Neuro: Level of Consciousness is awake, alert, obeys commands, Oriented to person, place, time, situation, Appropriate for age Floatlight Powder Mixer are equal bilaterally Moves all extremities. Full function Gait is steady, Speech is slurred, Facial symmetry appears normal, Pupils are pinpoint, Intact. Respiratory: Airway is patent Respiratory effort is even, unlabored, Respiratory pattern is regular, symmetrical. Derm: Skin is intact, is healthy with good turgor, Skin is pink, warm \\T\\ dry. normal. Vital Signs: 11:04 BP 96 / 65; Pulse 91; Resp 16 S; Temp 98.0(TE); Pulse Ox 100% on R/A; Weight 56.25 kg aa5 (R); Height 5 ft. 7 in. (170.18 cm) (R); Pain 10/10; 11:38 BP 99 / 69; Pulse 75; Resp 20; Pulse Ox 100% on R/A; aj 11:04 Body Mass Index 19.42 (56.25 kg, 170.18 cm) aa5 ED Course: 10:55 Patient arrived in ED. mr 11:02 Arm band placed on. aa5 11:04 Triage completed. aa5 11:07 Danette Nolasco, ADAM is Primary Nurse. aj 11:17 Cedric Mckeon MD is Attending Physician. ma2 11:36 Patient has correct armband on for positive identification. Pulse ox on. NIBP on. aj 12:00 No provider procedures requiring assistance completed. Patient did not have IV access aj during this emergency room visit. Administered Medications: 11:55 Drug: Valium 2 mg Route: PO; aj 12:08 Follow up: Response: No adverse reaction aj Outcome: 11:46 Discharge ordered by . ma2 12:00 Discharged to home ambulatory, with friend. aj 12:00 Condition: good 12:00 Discharge instructions given to patient, Instructed on discharge instructions, follow up and referral plans. Demonstrated understanding of instructions, follow-up care. 12:08 Patient left the ED. aj Signatures: Danette Nolasco RN RN aj Rivera, Mary mr DiazGladys RN RN aa5 Alzahri, Mohammad, MD MD ma2
[2018-04-09] MEDS ORDERED: DIAZEPAM 2 MG TABLET ONE (12:02)
[2018-04-09 12:40] VITALS: TEMP 98; O2SAT 100
[2018-04-09 12:41] VITALS: BP 99/69
== END 2018-04-09 12:08 | disposition home or self-care (01) ==
LOC: ER 10:52
DX: F41.9 Anxiety disorder, unspecified (principal); F17.210 Nicotine dependence, cigarettes, uncomplicated; Z88.2 Allergy status to sulfonamides; Z88.5 Allergy status to narcotic agent; Z88.8 Allergy status to other drugs, medicaments and biological substances
CPT/HCPCS: 99283

== ENCOUNTER 2018-06-20 07:49 | Emergency (ER) | payer OTHER ==
--- NOTE | 2018-06-20 08:28 | ER ---
Nurse's Notes [facility] Name: Tana Rao Age: 43 yrs Sex: Female : 1975 Arrival Date: 06/20/2018 Time: 07:51 Bed 6 Private MD: Diagnosis: Fall due to bumping against object;Contusion of right lower leg;Nausea;Multiple sclerosis Presentation: 06/20 07:55 Presenting complaint: Patient states: "My skin is burning, my insides hurt, I fell ss yesterday and my L knee, L ankle and L foot hurt. I am also sick to my stomach.". Transition of care: patient was not received from another setting of care. Onset of symptoms was June 19, 2018. Care prior to arrival: None. 07:55 Method Of Arrival: Ambulatory ss 07:55 Acuity: AMY 3 ss 08:01 Initial Sepsis Screen: Does the patient meet any 2 criteria? No. Patient's initial ph sepsis screen is negative. Does the patient have a suspected source of infection? No. Patient's initial sepsis screen is negative. 08:02 Risk Assessment: Do you want to hurt yourself or someone else? Patient reports no ph desire to harm self or others. Historical: - Allergies: 07:59 Demerol; ph 07:59 GABAPENTIN; ph 07:59 ketorolac tromethamine; ph 07:59 Lyrica; ph 07:59 sulfamethoxazole-trimethoprim; ph 07:59 Tramadol HCl; ph - PMHx: 07:59 Anxiety; Bipolar disorder; Chronic pain; Fibromyalgia; Hypothyroidism; Multiple ph Sclerosis; Parkinsons; Rheumatoid Arthritis; UTI; - Immunization history: Last tetanus immunization: unknown. - Social history:: Smoking status: unknown. - Ebola Screening: : No symptoms or risks identified at this time. - Family history:: not pertinent. Screenin:59 Abuse screen: Denies threats or abuse. Denies injuries from another. Nutritional ph screening: No deficits noted. Tuberculosis screening: No symptoms or risk factors identified. Fall Risk Fall in past 12 months (25 points). Secondary diagnosis (15 points) MS. No IV (0 pts). Ambulatory Aid- None/Bed Rest/Nurse Assist (0 pts). Gait- Normal/Bed Rest/Wheelchair (0 pts) Mental Status- Oriented to own ability (0 pts). Total Danielson Fall Scale indicates Low Risk Score (25-44 pts). Fall prevention measures have been instituted. Side Rails Up X 2 Placed close to Nursing Station Family Present and informed to notify staff if they need to leave bedside As available Patient and Family Educated on Fall Prevention Program and strategies. Assessment: 08:00 General: Appears in no apparent distress. comfortable, slender, Behavior is ph cooperative, appropriate for age, anxious, restless. Pain: Complains of pain in left leg. Neuro: Level of Consciousness is awake, alert, obeys commands, Oriented to person, place, time, situation. Cardiovascular: Capillary refill < 3 seconds in bilateral fingers Patient's skin is warm and dry. Respiratory: Airway is patent Respiratory effort is even, unlabored. GI: Reports nausea, Patient currently denies abdominal pain, diarrhea, vomiting. Derm: Skin is intact, Skin is pink, warm \\T\\ dry. Musculoskeletal: Circulation, motion, and sensation intact. Range of motion: intact in all extremities. Vital Signs: 07:55 BP 108 / 89; Pulse 74; Resp 17; Pulse Ox 100% on R/A; Weight 56.7 kg; Height 5 ft. 7 ss in. (170.18 cm); Pain 10/10; 07:55 Body Mass Index 19.58 (56.70 kg, 170.18 cm) ED Course: 07:51 Patient arrived in ED. mr 07:53 Celestine Tafoya MD is Attending Physician. angela 07:55 Arm band placed on right wrist. ss 08:00 Thermoregulation: warm blanket given to patient. ph 08:02 Triage completed. ss 08:02 Patient has correct armband on for positive identification. Bed in low position. Call ph light in reach. Side rails up X 1. Pulse ox on. NIBP on. 08:02 Arm band placed on Patient placed in an exam room, in a hallway bed, on a stretcher, on ph pulse oximetry. 08:34 Luz Elena Ingram, RN is Primary Nurse. ph 08:40 No provider procedures requiring assistance completed. Patient did not have IV access ph during this emergency room visit. Administered Medications: 08:44 Drug: Zofran 4 mg Route: PO; ph 08:45 Follow up: Response: No adverse reaction; Medication administered at discharge. ph 08:44 Drug: Motrin 400 mg Route: PO; ph 08:45 Follow up: Response: No adverse reaction; Medication administered at discharge. ph Outcome: 08:27 Discharge ordered by . [facility] 08:44 Patient left the ED. ph 08:44 Discharged to home ambulatory, with significant other. ph 08:44 Condition: good 08:44 Discharge instructions given to patient, Instructed on discharge instructions, follow up and referral plans. medication usage, Demonstrated understanding of instructions, follow-up care, medications, Prescriptions given X 2. Signatures: Celestine Tafoya MD MD cha Rivera, Mary mr Smirch, Shelby, RN RN Luz Elena Ingram RN RN
--- NOTE | 2018-06-20 08:28 | EDPHYS ---
Physician Documentation [facility] Name: Tana Rao Age: 43 yrs Sex: Female : 1975 Arrival Date: 06/20/2018 Time: 07:51 Bed 6 Private MD: ED Physician Celestine Tafoya HPI: 06/20 08:23 This 43 yrs old Female presents to ER via Ambulatory with complaints of Fall angela Injury. 08:23 Details of fall: The patient fell from an upright position, while walking. Onset: The angela symptoms/episode began/occurred 2 day(s) ago. Associated injuries: The patient sustained injury to the head, right leg, painful injury. Severity of symptoms: At their worst the symptoms were mild, in the emergency department the symptoms are unchanged. The patient has not experienced similar symptoms in the past. Historical: - Allergies: 07:59 Demerol; ph 07:59 GABAPENTIN; ph 07:59 ketorolac tromethamine; ph 07:59 Lyrica; ph 07:59 sulfamethoxazole-trimethoprim; ph 07:59 Tramadol HCl; ph - PMHx: 07:59 Anxiety; Bipolar disorder; Chronic pain; Fibromyalgia; Hypothyroidism; Multiple ph Sclerosis; Parkinsons; Rheumatoid Arthritis; UTI; - Immunization history: Last tetanus immunization: unknown. - Social history:: Smoking status: unknown. - Ebola Screening: : No symptoms or risks identified at this time. - Family history:: not pertinent. ROS: 08:23 Constitutional: Negative for fever, chills, and weight loss, Eyes: Negative for injury, angela pain, redness, and discharge, ENT: Negative for injury, pain, and discharge, Neck: Negative for injury, pain, and swelling, Cardiovascular: Negative for chest pain, palpitations, and edema, Respiratory: Negative for shortness of breath, cough, wheezing, and pleuritic chest pain, Abdomen/GI: Negative for abdominal pain, nausea, vomiting, diarrhea, and constipation, Back: Negative for injury and pain, : Negative for injury, bleeding, discharge, and swelling, Skin: Negative for injury, rash, and discoloration, Neuro: Negative for headache, weakness, numbness, tingling, and seizure, Psych: Negative for depression, anxiety, suicide ideation, homicidal ideation, and hallucinations, Allergy/Immunology: Negative for hives, rash, and allergies, Endocrine: Negative for neck swelling, polydipsia, polyuria, polyphagia, and marked weight changes, Hematologic/Lymphatic: Negative for swollen nodes, abnormal bleeding, and unusual bruising. 08:23 MS/extremity: Positive for pain, of the right leg. Exam: 08:23 Constitutional: This is a well developed, well nourished patient who is awake, alert, angela and in no acute distress. Head/Face: Normocephalic, atraumatic. Eyes: Pupils equal round and reactive to light, extra-ocular motions intact. Lids and lashes normal. Conjunctiva and sclera are non-icteric and not injected. Cornea within normal limits. Periorbital areas with no swelling, redness, or edema. ENT: Nares patent. No nasal discharge, no septal abnormalities noted. Tympanic membranes are normal and external auditory canals are clear. Oropharynx with no redness, swelling, or masses, exudates, or evidence of obstruction, uvula midline. Mucous membranes moist. Neck: Trachea midline, no thyromegaly or masses palpated, and no cervical lymphadenopathy. Supple, full range of motion without nuchal rigidity, or vertebral point tenderness. No Meningismus. Chest/axilla: Normal chest wall appearance and motion. Nontender with no deformity. No lesions are appreciated. Cardiovascular: Regular rate and rhythm with a normal S1 and S2. No gallops, murmurs, or rubs. Normal PMI, no JVD. No pulse deficits. Respiratory: Lungs have equal breath sounds bilaterally, clear to auscultation and percussion. No rales, rhonchi or wheezes noted. No increased work of breathing, no retractions or nasal flaring. Abdomen/GI: Soft, non-tender, with normal bowel sounds. No distension or tympany. No guarding or rebound. No evidence of tenderness throughout. Back: No spinal tenderness. No costovertebral tenderness. Full range of motion. Skin: Warm, dry with normal turgor. Normal color with no rashes, no lesions, and no evidence of cellulitis. MS/ Extremity: Pulses equal, no cyanosis. Neurovascular intact. Full, normal range of motion. Neuro: Awake and alert, GCS 15, oriented to person, place, time, and situation. Cranial nerves II-XII grossly intact. Motor strength 5/5 in all extremities. Sensory grossly intact. Cerebellar exam normal. Normal gait. Psych: Awake, alert, with orientation to person, place and time. Behavior, mood, and affect are within normal limits. 08:23 Musculoskeletal/extremity: ROM: full active range of motion, full passive range of angela motion, Circulation is intact in all extremities. Sensation intact. Compartment Syndrome exam of affected extremity: is normal. DVT Exam: no swelling, negative Homans' sign noted on exam, no appreciated bluish discoloration, no erythema, no increased warmth, pain, tenderness, pt ambulates without difficulty. Vital Signs: 07:55 BP 108 / 89; Pulse 74; Resp 17; Pulse Ox 100% on R/A; Weight 56.7 kg; Height 5 ft. 7 ss in. (170.18 cm); Pain 10/10; 07:55 Body Mass Index 19.58 (56.70 kg, 170.18 cm) ss MDM: 07:53 Patient medically screened. [facility] 08:23 Data reviewed: vital signs, nurses notes. [facility] Administered Medications: 08:44 Drug: Zofran 4 mg Route: PO; ph 08:45 Follow up: Response: No adverse reaction; Medication administered at discharge. ph 08:44 Drug: Motrin 400 mg Route: PO; ph 08:45 Follow up: Response: No adverse reaction; Medication administered at discharge. Disposition: 06/20/18 08:27 Discharged to Home. Impression: Fall due to bumping against object, Contusion of right lower leg, Nausea, Multiple sclerosis. - Condition is Stable. - Discharge Instructions: Contusion, Nausea, Adult, Contusion, [id number], Multiple Sclerosis, Fall Prevention in the Home, [id number]. - Prescriptions for Zofran 4 mg Oral Tablet - take 1 tablet by ORAL route every 12 hours As needed; 20 tablet. Motrin IB 200 mg Oral Tablet - take 2 tablet by ORAL route every 6 hours As needed as needed with food; 30 tablet. - Medication Reconciliation Form, Thank You Letter, Antibiotic Education, Prescription Opioid Use form. - Follow up: Private Physician; When: 2 - 3 days; Reason: Recheck today's complaints, Continuance of care, Re-evaluation by your physician. - Problem is new. - Symptoms have improved. Signatures: Celestine Tafoya MD MD cha Hall, Patricia, RN RN ph Corrections: (The following items were deleted from the chart) 08:27 08:27 06/20/2018 08:27 Discharged to Home. Impression: Fall due to bumping against angela object; Contusion of right lower leg; Nausea. Condition is Stable. Forms are Medication Reconciliation Form, Thank You Letter, Antibiotic Education, Prescription Opioid Use. Follow up: Private Physician; When: 2 - 3 days; Reason: Recheck today's complaints, Continuance of care, Re-evaluation by your physician. Problem is new. Symptoms have improved. angela 08:44 08:27 06/20/2018 08:27 Discharged to Home. Impression: Fall due to bumping against ph object; Contusion of right lower leg; Nausea; Multiple sclerosis. Condition is Stable. Forms are Medication Reconciliation Form, Thank You Letter, Antibiotic Education, Prescription Opioid Use. Follow up: Private Physician; When: 2 - 3 days; Reason: Recheck today's complaints, Continuance of care, Re-evaluation by your physician. Problem is new. Symptoms have improved. angela
[2018-06-20] MEDS ORDERED: ONDANSETRON 4 MG (ODT) TAB ONE (08:47)
[2018-06-20] MEDS ORDERED: IBUPROFEN 400 MG TAB ONE (08:47)
[2018-06-20 08:49] VITALS: BP 108/89; O2SAT 100
== END 2018-06-20 08:44 | disposition home or self-care (01) ==
LOC: ER 07:49
DX: S80.11XA Contusion of right lower leg, initial encounter (principal); R11.0 Nausea; G35 Multiple sclerosis; W18.00XA Striking against unspecified object with subsequent fall, initial encounter; Y93.9 Activity, unspecified; Y92.9 Unspecified place or not applicable; Z88.6 Allergy status to analgesic agent; Z88.8 Allergy status to other drugs, medicaments and biological substances
CPT/HCPCS: 99283

== ENCOUNTER 2018-10-27 20:57 | Emergency (ER) | payer OTHER ==
[2018-10-27] MEDS ORDERED: predniSONE 20 MG TAB ONE (22:01)
[2018-10-27] MEDS ORDERED: DIAZEPAM 5 MG TABLET ONE (22:01)
--- NOTE | 2018-10-27 22:16 | ER ---
Nurse's Notes [facility] Name: Tana Rao Age: 43 yrs Sex: Female : 1975 Arrival Date: 10/27/2018 Time: 20:59 Bed 7 Private MD: Diagnosis: Headache Presentation: 10/27 21:01 Presenting complaint: Patient states: I have been having pain all over for the last 5-7 la1 days. Transition of care: patient was not received from another setting of care. Onset of symptoms was October 27, 2018. Risk Assessment: Do you want to hurt yourself or someone else? Patient reports no desire to harm self or others. Initial Sepsis Screen: Does the patient meet any 2 criteria? No. Patient's initial sepsis screen is negative. Does the patient have a suspected source of infection? No. Patient's initial sepsis screen is negative. Care prior to arrival: None. 21:01 Method Of Arrival: Ambulatory la1 21:01 Acuity: AMY 3 la1 Historical: - Allergies: 21:02 Demerol; la1 21:02 GABAPENTIN; la1 21:02 ketorolac tromethamine; la1 21:02 Lyrica; la1 21:02 sulfamethoxazole-trimethoprim; la1 21:02 Tramadol HCl; la1 - PMHx: 21:02 Anxiety; Bipolar disorder; Chronic pain; Fibromyalgia; Hypothyroidism; Multiple la1 Sclerosis; Parkinsons; Rheumatoid Arthritis; UTI; - Immunization history:: Adult Immunizations up to date. - Social history:: Smoking status: Patient uses tobacco products, smokes one pack cigarettes per day. - Ebola Screening: : No symptoms or risks identified at this time. Screenin:50 Abuse screen: Denies threats or abuse. Denies injuries from another. Nutritional rv screening: No deficits noted. Tuberculosis screening: No symptoms or risk factors identified. Fall Risk None identified. Assessment: 21:48 Reassessment: patient refused to have IV access. keeps complaining of pain. referred to rv JENNIFER Cardona. 21:48 General: Appears in no apparent distress. Behavior is restless. General:. Pain: rv Complains of pain in left side. Neuro: Level of Consciousness is awake, alert, Oriented to person, place, time, situation. Cardiovascular: Patient's skin is warm and dry. Respiratory: Airway is patent. GI: No signs and/or symptoms were reported involving the gastrointestinal system. : No signs and/or symptoms were reported regarding the genitourinary system. EENT: No signs and/or symptoms were reported regarding the EENT system. Derm: Skin with poor turgor. Musculoskeletal: Reports pain in generalized. 22:05 Reassessment: Patient and/or family updated on plan of care and expected duration. Pain ea level reassessed. Patient is alert, oriented x 3, equal unlabored respirations, skin warm/dry/pink. 22:05 Reassessment: JENNIFER CARDONA talked to the patient. decided to give PO meds and do CT scan.rv Vital Signs: 21:02 BP 128 / 89; Pulse 103; Resp 16; Temp 97.9; Pulse Ox 100% on R/A; Weight 56.7 kg; la1 Height 5 ft. 7 in. (170.18 cm); 22:27 BP 123 / 93; Pulse 88; Resp 18; Temp 97.6; Pulse Ox 100% ; ea 21:02 Body Mass Index 19.58 (56.70 kg, 170.18 cm) la1 ED Course: 20:59 Patient arrived in ED. mr 21:01 Triage completed. la1 21:02 Arm band placed on right wrist. la1 21:05 Brendan Mckeon NP is PHCP. pm1 21:05 Triston Price MD is Attending Physician. pm1 21:14 Aleksandar Esparza RN is Primary Nurse. rv 21:40 CT Head Brain wo Cont In Process Unspecified. EDMS 21:50 Patient has correct armband on for positive identification. Bed in low position. Call rv light in reach. Side rails up X 1. Pulse ox on. NIBP on. 21:56 CT completed. Patient tolerated procedure well. Patient moved back from CT. bq 22:28 No provider procedures requiring assistance completed. Patient did not have IV access ea during this emergency room visit. Administered Medications: 22:02 Not Given (Patient Refused): NS 0.9% 1000 ml IV at 1000 ml once ea 22:03 Not Given (Patient Refused): SOLU-Medrol 125 mg IVP once ea 22:04 Drug: Valium 5 mg Route: PO; rv 22:28 Follow up: Response: No adverse reaction; Pain is decreased ea 22:04 Drug: predniSONE 60 mg Route: PO; rv 22:28 Follow up: Response: No adverse reaction ea Outcome: 22:15 Discharge ordered by . pm1 22:34 Discharged to home via wheelchair, patient is calling her ride on the phone. patient rv opted to wait in the waiting room. 22:34 Condition: good 22:34 Discharge instructions given to patient, Instructed on discharge instructions, follow up and referral plans. Demonstrated understanding of instructions, follow-up care. 22:35 Patient left the ED. rv Signatures: Dispatcher [employer] Jewell Denisse Willis Mychal Pinedo RN RN la1 Brendan Mckeon, JENNIFER [employer] MEMBER pm1 Morenita Kenney RN RN Aleksandar Welsh RN RN rv
--- NOTE | 2018-10-27 22:17 | EDPHYS ---
Physician Documentation [facility] Name: Tana Rao Age: 43 yrs Sex: Female : 1975 Arrival Date: 10/27/2018 Time: 20:59 Bed 7 Private MD: ED Physician Triston Price HPI: 10/27 21:16 This 43 yrs old Female presents to ER via Ambulatory with complaints of Pain pm1 All Over, Vision Problem. 21:16 The patient complains of pain to the top of head, forehead, right eye, left eye, left pm1 occipital area, left base of the skull, right occipital area and right base of the skull. The patient describes the headache as aching. Onset: The symptoms/episode began/occurred yesterday. Associated signs and symptoms: Pertinent positives: Pain all over her body, Pertinent negatives: fever, nausea, paresthesias, rash, sinus congestion, sinus tenderness, vomiting. Headache History: The patient has had previous headaches and this one is similar to previous episodes. The symptoms are alleviated by nothing. the symptoms are aggravated by nothing. The patient has experienced similar episodes in the past, multiple times. The patient has not recently seen a physician. Patient reports headache behind both her eyes causing a burning sensation. Patient with history of chronic pain and MS. Historical: - Allergies: 21:02 Demerol; la1 21:02 GABAPENTIN; la1 21:02 ketorolac tromethamine; la1 21:02 Lyrica; la1 21:02 sulfamethoxazole-trimethoprim; la1 21:02 Tramadol HCl; la1 - PMHx: 21:02 Anxiety; Bipolar disorder; Chronic pain; Fibromyalgia; Hypothyroidism; Multiple la1 Sclerosis; Parkinsons; Rheumatoid Arthritis; UTI; - Immunization history:: Adult Immunizations up to date. - Social history:: Smoking status: Patient uses tobacco products, smokes one pack cigarettes per day. - Ebola Screening: : No symptoms or risks identified at this time. ROS: 21:16 Constitutional: Negative for fever, chills, and weight loss, Eyes: Negative for injury, pm1 pain, redness, and discharge, ENT: Negative for injury, pain, and discharge, Neck: Negative for injury, pain, and swelling, Cardiovascular: Negative for chest pain, palpitations, and edema, Respiratory: Negative for shortness of breath, cough, wheezing, and pleuritic chest pain, Abdomen/GI: Negative for abdominal pain, nausea, vomiting, diarrhea, and constipation, Back: Negative for injury and pain, : Negative for injury, bleeding, discharge, and swelling, MS/Extremity: Negative for injury and deformity, Skin: Negative for injury, rash, and discoloration. 21:16 Neuro: Positive for headache, Negative for numbness, tingling. Exam: 21:16 Constitutional: This is a well developed, well nourished patient who is awake, alert, pm1 and in no acute distress. Head/Face: Normocephalic, atraumatic. Eyes: Pupils equal round and reactive to light, extra-ocular motions intact. Lids and lashes normal. Conjunctiva and sclera are non-icteric and not injected. Cornea within normal limits. Periorbital areas with no swelling, redness, or edema. ENT: Nares patent. No nasal discharge, no septal abnormalities noted. Tympanic membranes are normal and external auditory canals are clear. Oropharynx with no redness, swelling, or masses, exudates, or evidence of obstruction, uvula midline. Mucous membranes moist. Neck: Trachea midline, no thyromegaly or masses palpated, and no cervical lymphadenopathy. Supple, full range of motion without nuchal rigidity, or vertebral point tenderness. No Meningismus. Chest/axilla: Normal chest wall appearance and motion. Nontender with no deformity. No lesions are appreciated. Cardiovascular: Regular rate and rhythm with a normal S1 and S2. No gallops, murmurs, or rubs. Normal PMI, no JVD. No pulse deficits. Respiratory: Lungs have equal breath sounds bilaterally, clear to auscultation and percussion. No rales, rhonchi or wheezes noted. No increased work of breathing, no retractions or nasal flaring. Abdomen/GI: Soft, non-tender, with normal bowel sounds. No distension or tympany. No guarding or rebound. No evidence of tenderness throughout. Back: No spinal tenderness. No costovertebral tenderness. Full range of motion. Skin: Warm, dry with normal turgor. Normal color with no rashes, no lesions, and no evidence of cellulitis. MS/ Extremity: Pulses equal, no cyanosis. Neurovascular intact. Full, normal range of motion. 21:16 Neuro: Orientation: is normal, Motor: moves all fours. Vital Signs: 21:02 BP 128 / 89; Pulse 103; Resp 16; Temp 97.9; Pulse Ox 100% on R/A; Weight 56.7 kg; la1 Height 5 ft. 7 in. (170.18 cm); 22:27 BP 123 / 93; Pulse 88; Resp 18; Temp 97.6; Pulse Ox 100% ; ea 21:02 Body Mass Index 19.58 (56.70 kg, 170.18 cm) la1 MDM: 21:06 Patient medically screened. pm1 22:00 ED course: Patient refused lab work and IV. Patient requested to have all medications pm1 by mouth. 22:14 Data reviewed: vital signs. Data interpreted: Pulse oximetry: on room air is 100 %. pm1 Interpretation: normal. Counseling: I had a detailed discussion with the patient and/or guardian regarding: the historical points, exam findings, and any diagnostic results supporting the discharge/admit diagnosis, radiology results, the need for outpatient follow up, to return to the emergency department if symptoms worsen or persist or if there are any questions or concerns that arise at home. 10/27 21:15 Order name: CT Head Brain wo Cont pm1 Administered Medications: 22:02 Not Given (Patient Refused): NS 0.9% 1000 ml IV at 1000 ml once ea 22:03 Not Given (Patient Refused): SOLU-Medrol 125 mg IVP once ea 22:04 Drug: Valium 5 mg Route: PO; rv 22:28 Follow up: Response: No adverse reaction; Pain is decreased ea 22:04 Drug: predniSONE 60 mg Route: PO; rv 22:28 Follow up: Response: No adverse reaction ea Disposition: 23:22 Co-signature as Attending Physician, Triston Price MD. rn Disposition: 10/27/18 22:15 Discharged to Home. Impression: Headache. - Condition is Stable. - Discharge Instructions: General Headache Without Cause. - Medication Reconciliation Form, Thank You Letter, Antibiotic Education, Prescription Opioid Use form. - Follow up: Emergency Department; When: As needed; Reason: Worsening of condition. Follow up: Private Physician; When: 2 - 3 days; Reason: Recheck today's complaints, Continuance of care, Re-evaluation by your physician. - Problem is new. - Symptoms have improved. Signatures: Dispatcher [employer] EDMS Triston Price MD MD rn Attema, Lee, RN RN la1 Brendan Mckeon, WEB INTERFACE DEVELOPER WEB INTERFACE DEVELOPER pm1 Morenita Kenney RN RN ea Vicente, Ronaldo, RN RN rv Corrections: (The following items were deleted from the chart) 22:35 22:15 10/27/2018 22:15 Discharged to Home. Impression: Headache. Condition is Stable. rv Forms are Medication Reconciliation Form, Thank You Letter, Antibiotic Education, Prescription Opioid Use. Follow up: Emergency Department; When: As needed; Reason: Worsening of condition. Follow up: Private Physician; When: 2 - 3 days; Reason: Recheck today's complaints, Continuance of care, Re-evaluation by your physician. Problem is new. Symptoms have improved. pm1
[2018-10-27 22:41] VITALS: O2SAT 100
[2018-10-27 22:42] VITALS: BP 123/93; TEMP 97.6
--- NOTE | 2018-10-29 11:47 | RAD REPORT ---
EXAM DESCRIPTION: CT - Head Brain Wo Cont - 10/27/2018 10:07 pm CLINICAL HISTORY: 43 years Female, HEADACHE TECHNIQUE: 5 mm axial images were obtained along with 3 mm reformatted coronal and sagittal images. This exam was performed according to our departmental dose-optimization program, which includes autom ated exposure control, adjustment of the mA and/or kV according to patient size and/or use of iterati ve reconstruction technique. COMPARISON: None. FINDINGS: No acute abnormal extracerebral fluid collections are demonstrated. The cortical sulci, ventricles, and cisterns are within normal limits. There are no areas of altered attenuation identified to suggest acute hemorrhage, infarction, or mass lesion. The visualized portions of the paranasal sinuses and mastoid air cells are clear. IMPRESSION: 1. Normal study. Electronically signed by: Alfredo Mcintyre MD 10/27/2018 9:45 PM CDT Due to temporary technical issues with the PACS/Fluency reporting system, reports are being signed by the in house radiologist as a courtesy to ensure prompt reporting. The interpreting radiologist is f ully responsible for the content of the report.
== END 2018-10-27 22:35 | disposition home or self-care (01) ==
LOC: ER 20:57
DX: R51 Headache (principal); F17.210 Nicotine dependence, cigarettes, uncomplicated; Z88.6 Allergy status to analgesic agent; Z88.2 Allergy status to sulfonamides
CPT/HCPCS: 70450; 99284; J7512

== ENCOUNTER 2019-01-30 15:51 | Emergency (ER) | payer OTHER ==
[2019-01-30] MEDS ORDERED: NA CHLORIDE 0.9% 1,000 ML ONE (16:24)
--- NOTE | 2019-01-30 16:54 | RAD REPORT ---
EXAM DESCRIPTION: CT - Spine Lumbar Wo Con - 01/30/2019 4:40 pm CLINICAL HISTORY: Radiculopathy. PAIN COMPARISON: No comparisons TECHNIQUE: Axial noncontrast CT imaging of the lumbar spine was performed with coronal and sagittal re-formatted images. All CT scans are performed using dose optimization technique as appropriate and may include automated exposure control or mA/KV adjustment according to patient size. FINDINGS: No acute lumbar spine fracture seen. No aggressive marrow pattern or malalignment. Paraspinal tissues are normal in thickness. No paraspinal abscess or hematoma seen. Intervertebral disc disease assessment is inherently limited by CT. Within these limitations, no high -grade canal stenosis suspected. IMPRESSION: No acute lumbar spine abnormality. Consider MRI follow-up for assessment of disc disease if clinically desired.
[2019-01-30 17:32] LABS: Absolute Lymphocytes (CBC) 2.7 K/uL (0.7-4.9); Basophils % 1.2 % (0-1.3); Hematocrit 38.2 % (36.0-45.0); Lymphocytes % 30.8 % (15.3-44.8); MPV 8.2 fL (7.6-11.3); RBC Red Blood Cell Count 5.01 M/uL (3.86-4.86)
[2019-01-30 18:08] LABS: ALT/SGPT 20 U/L (12-78); AST/SGOT 25 U/L (15-37); Albumin 3.7 g/dL (3.4-5.0); Alkaline Phosphatase 112 U/L (45-117); BUN Blood Urea Nitrogen 14 mg/dL (7-18); Bicarbonate 30 mmol/L (21-32); Bilirubin Direct < 0.1 mg/dL (0-0.2); Bilirubin Total 0.3 mg/dL (0.2-1.0); Glucose Level 80 mg/dL (74-106); Lipase 144 U/L (73-393); Potassium 4.2 mmol/L (3.5-5.1); Protein, Total 7.1 g/dL (6.4-8.2); Sodium Level 143 mmol/L (136-145)
[2019-01-30 18:38] LABS: Barbiturates NEGATIVE (NEGATIVE); Benzodiazepines NEGATIVE (NEGATIVE); Cocaine NEGATIVE (NEGATIVE); METHAMPHETAM POSITIVE (NEGATIVE); Methadone NEGATIVE (NEGATIVE); Opiates NEGATIVE (NEGATIVE); Phencyclidine NEGATIVE (NEGATIVE); THC Cannibis NEGATIVE (NEGATIVE)
--- NOTE | 2019-01-30 18:41 | EDPHYS ---
Physician Documentation [facility] Name: Tana Rao Age: 43 yrs Sex: Female : 1975 Arrival Date: 01/30/2019 Time: 15:54 Bed 13 Private MD: ED Physician Waldo Waters HPI: 01/30 18:47 This 43 yrs old Female presents to ER via EMS with complaints of back pain. snw 18:47 The patient presents with pain that is chronic, with no known mechanism of injury. The snw symptoms are located in the low back. Onset: The symptoms/episode began/occurred and became worse. Associated signs and symptoms: The patient has no apparent associated signs or symptoms. The problem was sustained from a chronic condition, the patient has known disc disease. Severity of symptoms: At their worst the symptoms were moderate. The patient has experienced similar episodes in the past, chronically. It is unknown whether or not the patient has recently seen a physician. Historical: - Allergies: 16:07 Demerol; ph 16:07 GABAPENTIN; ph 16:07 Lyrica; ph 16:07 ketorolac tromethamine; ph 16:07 sulfamethoxazole-trimethoprim; ph 16:07 Tramadol HCl; ph - PMHx: 16:07 Anxiety; Bipolar disorder; Chronic pain; Fibromyalgia; Hypothyroidism; Multiple ph Sclerosis; Parkinsons; Rheumatoid Arthritis; UTI; - Immunization history:: Adult Immunizations unknown. - Ebola Screening: : No symptoms or risks identified at this time. ROS: 18:47 Constitutional: Negative for fever, chills, and weight loss, Eyes: Negative for injury, snw pain, redness, and discharge, ENT: Negative for injury, pain, and discharge, Neck: Negative for injury, pain, and swelling, Cardiovascular: Negative for chest pain, palpitations, and edema, Respiratory: Negative for shortness of breath, cough, wheezing, and pleuritic chest pain, Abdomen/GI: Negative for abdominal pain, nausea, vomiting, diarrhea, and constipation, : Negative for injury, bleeding, discharge, and swelling, MS/Extremity: Negative for injury and deformity, Skin: Negative for injury, rash, and discoloration, Neuro: Negative for headache, weakness, numbness, tingling, and seizure, Psych: Negative for depression, anxiety, suicide ideation, homicidal ideation, and hallucinations. 18:47 Back: Positive for decreased range of motion, pain with movement, of the low back area. Exam: 18:49 Neuro: Exam negative for acute changes. snw 18:50 Head/Face: Normocephalic, atraumatic. Eyes: Pupils equal round and reactive to light, snw extra-ocular motions intact. Lids and lashes normal. Conjunctiva and sclera are non-icteric and not injected. Cornea within normal limits. Periorbital areas with no swelling, redness, or edema. ENT: Nares patent. No nasal discharge, no septal abnormalities noted. Tympanic membranes are normal and external auditory canals are clear. Oropharynx with no redness, swelling, or masses, exudates, or evidence of obstruction, uvula midline. Mucous membranes moist. Neck: Trachea midline, no thyromegaly or masses palpated, and no cervical lymphadenopathy. Supple, full range of motion without nuchal rigidity, or vertebral point tenderness. No Meningismus. Chest/axilla: Normal chest wall appearance and motion. Nontender with no deformity. No lesions are appreciated. Cardiovascular: Regular rate and rhythm with a normal S1 and S2. No gallops, murmurs, or rubs. Normal PMI, no JVD. No pulse deficits. Respiratory: Lungs have equal breath sounds bilaterally, clear to auscultation and percussion. No rales, rhonchi or wheezes noted. No increased work of breathing, no retractions or nasal flaring. Abdomen/GI: Soft, non-tender, with normal bowel sounds. No distension or tympany. No guarding or rebound. No evidence of tenderness throughout. Back: No spinal tenderness. No costovertebral tenderness. Full range of motion. Skin: Warm, dry with normal turgor. Normal color with no rashes, no lesions, and no evidence of cellulitis. MS/ Extremity: Pulses equal, no cyanosis. Neurovascular intact. Full, normal range of motion. 18:50 Constitutional: The patient appears alert, frail. 18:50 Neuro: Orientation: appropriate for stated age, Mentation: able to follow commands, Memory: appropriate for stated age, Cerebellar function: Romberg testing is negative, ataxic gait. Vital Signs: 16:04 BP 116 / 79; Pulse 96; Resp 18; Temp 98.5; Pulse Ox 100% on R/A; Weight 57.61 kg; ph Height 5 ft. 7 in. (170.18 cm); Pain 10/10; 17:35 BP 110 / 61; Pulse 84; Resp 18; Pulse Ox 98% on R/A; ph 18:35 BP 112 / 78; Pulse 87; Resp 18; Temp 97.9; Pulse Ox 99% on R/A; ph 16:04 Body Mass Index 19.89 (57.61 kg, 170.18 cm) ph MDM: 16:00 Patient medically screened. snw 18:49 Data reviewed: vital signs, nurses notes. Data interpreted: Pulse oximetry: on room air snw is 98 %. Interpretation: normal. Counseling: I had a detailed discussion with the patient and/or guardian regarding: the historical points, exam findings, and any diagnostic results supporting the discharge/admit diagnosis, lab results, radiology results, the need for outpatient follow up, to return to the emergency department if symptoms worsen or persist or if there are any questions or concerns that arise at home. Special discussion: Based on the history and exam findings, there is no indication for further emergent testing or inpatient evaluation. I discussed with the patient/guardian the need to see the apprentice painter neckties for further evaluation of the symptoms. I discussed with the patient/guardian the need to see the primary care provider for further evaluation of the symptoms. 01/30 15:56 Order name: Basic Metabolic Panel; Complete Time: 18:19 snw 01/30 15:56 Order name: CBC with Diff; Complete Time: 17:36 snw 01/30 15:56 Order name: Hepatic Function; Complete Time: 18:19 snw 01/30 15:56 Order name: Lipase; Complete Time: 18:19 snw 01/30 15:56 Order name: Urine Drug Screen; Complete Time: 18:42 snw 01/30 15:56 Order name: IV Saline Lock; Complete Time: 17:31 snw 01/30 15:56 Order name: Urine Microscopic Only snw 01/30 16:30 Order name: CT Lumbar Spine Wo Con; Complete Time: 17:09 snw 01/30 18:12 Order name: Urine Dipstick--Ancillary (enter results); Complete Time: 18:50 bd 01/30 18:13 Order name: Urine --Ancillary (enter results); Complete Time: 18:50 bd 01/30 15:56 Order name: Labs collected and sent; Complete Time: 17:31 snw 01/30 15:56 Order name: Urine Dipstick-Ancillary (obtain specimen); Complete Time: 18:31 snw Administered Medications: 18:59 Not Given (Patient Refused): NS 0.9% 1000 ml IV at 1 bolus Per protocol; 1000 mL bolus ph 18:59 Drug: Motrin 200 mg Route: PO; ph 19:00 Follow up: Response: No adverse reaction; Medication administered at discharge. ph 19:00 Not Given (Patient Refused): NS 0.9% 1000 ml IV at 1 bolus Per protocol; 1000 mL bolus ph Disposition: 01/31 08:59 Co-signature as Attending Physician, Waldo Waters MD Available for consultation ps1 during the encounter in the ED. Signing chart for administrative purposes. . Disposition: 01/30/19 18:40 Discharged to Home. Impression: Dehydration, Low back pain, Other chronic pain. - Condition is Stable. - Discharge Instructions: Back Pain, Adult, Chronic Pain, Musculoskeletal Pain, Cryotherapy, Rehydration, Adult, Heat Therapy. - Medication Reconciliation Form, Thank You Letter, Antibiotic Education, Prescription Opioid Use form. - Follow up: Private Physician; When: 1 - 2 days; Reason: Recheck today's complaints, Continuance of care, Re-evaluation by your physician. Follow up: Emergency Department; When: As needed; Reason: Worsening of condition. Signatures: Dispatcher [employer] [facility] Zahraa Galo, [employer] ENGINE [employer]PERATOR [employer]INE [employer] Luz Elena Ingram RN RN ph Singer, Phillip, MD MD ps1 Corrections: (The following items were deleted from the chart) 01/30 17:30 15:57 Creatinine for Radiology+C.LAB.BRZ ordered. [facility] EDCT 19:00 18:40 01/30/2019 18:40 Discharged to Home. Impression: Dehydration; Low back pain; ph Other chronic pain. Condition is Stable. Forms are Medication Reconciliation Form, Thank You Letter, Antibiotic Education, Prescription Opioid Use. Follow up: Private Physician; When: 1 - 2 days; Reason: Recheck today's complaints, Continuance of care, Re-evaluation by your physician. Follow up: Emergency Department; When: As needed; Reason: Worsening of condition. snw
--- NOTE | 2019-01-30 18:41 | ER ---
Nurse's Notes [facility] Name: Tana Rao Age: 43 yrs Sex: Female : 1975 Arrival Date: 01/30/2019 Time: 15:54 Bed 13 Private MD: Diagnosis: Dehydration;Low back pain;Other chronic pain Presentation: 01/30 16:02 Presenting complaint: EMS states: Pt reports falling onto back 3 times today r/t ph dizziness, c/o pain to low back that radiates to both legs, worse on R side, denies LOC. Transition of care: patient was not received from another setting of care. Onset of symptoms was January 30, 2019. Risk Assessment: Do you want to hurt yourself or someone else? Patient reports no desire to harm self or others. Initial Sepsis Screen: Does the patient meet any 2 criteria? No. Patient's initial sepsis screen is negative. Does the patient have a suspected source of infection? No. Patient's initial sepsis screen is negative. Care prior to arrival: None. 16:02 Method Of Arrival: EMS: [facility] ph 16:02 Acuity: AMY 3 ph Historical: - Allergies: 16:07 Demerol; ph 16:07 GABAPENTIN; ph 16:07 Lyrica; ph 16:07 ketorolac tromethamine; ph 16:07 sulfamethoxazole-trimethoprim; ph 16:07 Tramadol HCl; ph - PMHx: 16:07 Anxiety; Bipolar disorder; Chronic pain; Fibromyalgia; Hypothyroidism; Multiple ph Sclerosis; Parkinsons; Rheumatoid Arthritis; UTI; - Immunization history:: Adult Immunizations unknown. - Ebola Screening: : No symptoms or risks identified at this time. Screenin:07 Abuse screen: Denies threats or abuse. Denies injuries from another. Nutritional ph screening: No deficits noted. Tuberculosis screening: No symptoms or risk factors identified. Fall Risk Fall in past 12 months (25 points). Secondary diagnosis (15 points) Parkinson's, MS. No IV (0 pts). Ambulatory Aid- None/Bed Rest/Nurse Assist (0 pts). Gait- Normal/Bed Rest/Wheelchair (0 pts) Mental Status- Oriented to own ability (0 pts). Total Danielson Fall Scale indicates High Risk Score (45 or more points). Fall prevention measures have been instituted. Side Rails Up X 2 Placed Close to Nursing Station Frequent Obs/Assessments Occuring As available patient and family educated on Fall Prevention Program and Strategies. Assessment: 16:36 General: Appears in no apparent distress. uncomfortable, slender, unkempt, Behavior is ph cooperative, restless. Pain: Complains of pain in low back area Pain radiates to right leg and left leg. Neuro: Level of Consciousness is awake, alert, obeys commands, Oriented to person, place, time, situation, Reports dizziness. Cardiovascular: Capillary refill < 3 seconds in bilateral fingers Patient's skin is warm and dry. Respiratory: Airway is patent Respiratory effort is even, unlabored, Respiratory pattern is regular, symmetrical. Derm: Skin is intact, Skin is pink, warm \\T\\ dry. Musculoskeletal: Circulation, motion, and sensation intact. Range of motion: intact in all extremities. 17:30 Reassessment: Patient appears in no apparent distress at this time. Patient and/or ph family updated on plan of care and expected duration. Pain level reassessed. Patient is alert, oriented x 3, equal unlabored respirations, skin warm/dry/pink. Pt refusing IV fluids at this time. 18:44 Reassessment: Patient appears in no apparent distress at this time. ERP at bedside to speak w/ pt, pt refusing IV fluids, noted to have d/c own IV, catheter appears intact and bleeding controlled, pt states, " I am ready to go, I just need a pill and I'll leave. Vital Signs: 16:04 BP 116 / 79; Pulse 96; Resp 18; Temp 98.5; Pulse Ox 100% on R/A; Weight 57.61 kg; ph Height 5 ft. 7 in. (170.18 cm); Pain 10/10; 17:35 BP 110 / 61; Pulse 84; Resp 18; Pulse Ox 98% on R/A; ph 18:35 BP 112 / 78; Pulse 87; Resp 18; Temp 97.9; Pulse Ox 99% on R/A; ph 16:04 Body Mass Index 19.89 (57.61 kg, 170.18 cm) ED Course: 15:54 Patient arrived in ED. am2 15:55 Zahraa Gal[facility] FNP-C [facility]. snw 15:55 Waldo Waters MD is Attending Physician. snw 16:02 Luz Elena Ingram, RN is Primary Nurse. ph 16:04 Triage completed. ph 16:07 Arm band placed on Patient placed in an exam room, on a stretcher, on pulse oximetry. ph 16:40 CT Lumbar Spine Wo Con In Process Unspecified. EDMS 17:20 Initial lab(s) drawn, by me, sent to lab. Inserted saline lock: 24 gauge in right hand, dh3 using aseptic technique. Blood collected. 17:34 Patient has correct armband on for positive identification. Bed in low position. Call ph light in reach. Side rails up X 1. Pulse ox on. NIBP on. Door closed. Noise minimized. Warm blanket given. 18:52 No provider procedures requiring assistance completed. IV discontinued, intact, ph bleeding controlled, No redness/swelling at site. Pressure dressing applied, D/C by pt. Administered Medications: 18:59 Not Given (Patient Refused): NS 0.9% 1000 ml IV at 1 bolus Per protocol; 1000 mL bolus ph 18:59 Drug: Motrin 200 mg Route: PO; ph 19:00 Follow up: Response: No adverse reaction; Medication administered at discharge. ph 19:00 Not Given (Patient Refused): NS 0.9% 1000 ml IV at 1 bolus Per protocol; 1000 mL bolus ph Outcome: 18:40 Discharge ordered by MD. snw 18:57 Discharged to home ambulatory. ph 18:57 Condition: good 18:57 Discharge instructions given to patient, Instructed on discharge instructions, follow up and referral plans. Demonstrated understanding of instructions, follow-up care. 19:00 Patient left the ED. ph Signatures: Dispatcher [employer] [facility] Zahraa Galo, [employer] Luz Elena Ingram, RN RN ph Danette Barrera Deanna 3
[2019-01-30 18:45] LABS: Urine Blood NEGATIVE (NEG); Urine Glucose NEGATIVE (NEG); Urine Protein TRACE (NEG); Urine Specific Gravity >1.030 (1.005-1.030); Urine pH 5.5 (5.0-7.0)
[2019-01-30] MEDS ORDERED: IBUPROFEN 200 MG TAB PO ONE (18:49)
[2019-01-30 19:18] LABS: Calcium Oxalate Crystals- Ur MANY (NONE SEEN); Urine Bacteria <20 /HPF (<20); Urine Culture Reflex Order NOT NEEDED; Urine RBC <5 /HPF (NONE SEEN)
[2019-01-31 21:02] VITALS: BP 116/79; TEMP 98.5; O2SAT 100
== END 2019-01-30 19:00 | disposition home or self-care (01) ==
LOC: ER 15:51
DX: M54.5 Low back pain (principal); G89.29 Other chronic pain; E86.0 Dehydration; Z88.6 Allergy status to analgesic agent; Z88.8 Allergy status to other drugs, medicaments and biological substances
CPT/HCPCS: 85025; 80048; 36415; 81025; 80076; 80307 ×8; 83690; 72131; 99284; J7030; 81003; 81015

== ENCOUNTER 2019-02-06 08:39 | Emergency (ER) | payer OTHER ==
--- NOTE | 2019-02-06 10:41 | RAD REPORT ---
EXAM DESCRIPTION: RAD - Chest Single View - 02/06/2019 10:34 am CLINICAL HISTORY: CHEST PAIN Chest pain. COMPARISON: Chest Single View dated 01/24/2018; Chest Single View dated 08/27/2017; Chest Pa And Lat ( 2 Views) dated 03/14/2017; Chest Single View dated 02/23/2017 FINDINGS: Portable technique limits examination quality. The lungs are grossly clear. The heart is normal in size. No displaced fractures. IMPRESSION: No acute intrathoracic process suspected.
[2019-02-06] MEDS ORDERED: ONDANSETRON 4 MG (ODT) TAB ONE (11:16)
--- NOTE | 2019-02-06 11:48 | EDPHYS ---
Physician Documentation [facility] Name: Tana Rao Age: 44 yrs Sex: Female : 1975 Arrival Date: 02/06/2019 Time: 08:46 Bed 20 Private MD: ED Physician Mohsen Carlton HPI: 02/06 14:13 This 44 yrs old Female presents to ER via Wheelchair with complaints of Pain kdr All Over - CP. 14:13 The patient or guardian reports chest pain that is located primarily in the anterior kdr chest wall, bilaterally. Onset: yesterday. The pain does not radiate. Associated signs and symptoms: Pertinent positives: nausea, Pertinent negatives: abdominal pain, cough, diaphoresis, dizziness, headache, recent travel, shortness of breath, syncope, vomiting. The chest pain is described as aching, dull. 15:06 Duration: The patient or guardian reports multiple episodes, that are intermittent, kdr that wax and wane, with no pattern. Modifying factors: The symptoms are alleviated by nothing. the symptoms are aggravated by breathing, cough, deep breath, emotionally stressful situations. Severity of pain: At its worst the pain was mild in the emergency department the pain is unchanged. The patient has experienced similar episodes in the past, chronically, today's symptoms are similar, and the symptoms today are exactly the same. RESEARCH FELLOW: 12:07 LMP N/A - Hysterectomy ca1 Historical: - Allergies: 09:10 Demerol; iw 09:10 GABAPENTIN; iw 09:10 ketorolac tromethamine; iw 09:10 Lyrica; iw 09:10 sulfamethoxazole-trimethoprim; iw 09:10 Tramadol HCl; iw - Home Meds: 09:10 thyroid medicine [Active]; iw - PMHx: 09:10 Anxiety; Bipolar disorder; Chronic pain; Fibromyalgia; Hypothyroidism; Multiple iw Sclerosis; Parkinsons; Rheumatoid Arthritis; UTI; - Immunization history:: Adult Immunizations not up to date. - Social history:: Smoking status: Patient uses tobacco products. - Ebola Screening: : Patient negative for fever greater than or equal to 101.5 degrees Fahrenheit, and additional compatible Ebola Virus Disease symptoms Patient denies exposure to infectious person Patient denies travel to an Ebola-affected area in the 21 days before illness onset No symptoms or risks identified at this time. ROS: 15:06 Constitutional: Negative for fever, chills, and weight loss, Eyes: Negative for injury, kdr pain, redness, and discharge, ENT: Negative for injury, pain, and discharge, Neck: Negative for injury, pain, and swelling, Respiratory: Negative for shortness of breath, cough, wheezing, and pleuritic chest pain, Abdomen/GI: Negative for abdominal pain, nausea, vomiting, diarrhea, and constipation, Back: Negative for injury and pain, : Negative for injury, bleeding, discharge, and swelling, MS/Extremity: Negative for injury and deformity, Skin: Negative for injury, rash, and discoloration, Neuro: Negative for headache, weakness, numbness, tingling, and seizure activity. 15:06 Cardiovascular: Positive for chest pain, edema, palpitations, paroxysmal nocturnal dyspnea, Negative for orthopnea. Exam: 15:06 Constitutional: This is a well developed, well nourished patient who is awake, alert, kdr and in no acute distress. Head/Face: Normocephalic, atraumatic. Eyes: Pupils equal round and reactive to light, extra-ocular motions intact. Lids and lashes normal. Conjunctiva and sclera are non-icteric and not injected. Cornea within normal limits. Periorbital areas with no swelling, redness, or edema. Neck: Trachea midline, no thyromegaly or masses palpated, and no cervical lymphadenopathy. Supple, full range of motion without nuchal rigidity, or vertebral point tenderness. No Meningismus. Chest/axilla: Normal chest wall appearance and motion. Nontender with no deformity. No lesions are appreciated. Cardiovascular: Regular rate and rhythm with a normal S1 and S2. No gallops, murmurs, or rubs. Normal PMI, no JVD. No pulse deficits. Respiratory: Lungs have equal breath sounds bilaterally, clear to auscultation and percussion. No rales, rhonchi or wheezes noted. No increased work of breathing, no retractions or nasal flaring. Abdomen/GI: Soft, non-tender, with normal bowel sounds. No distension or tympany. No guarding or rebound. No evidence of tenderness throughout. Back: No spinal tenderness. No costovertebral tenderness. Full range of motion. Skin: Warm, dry with normal turgor. Normal color with no rashes, no lesions, and no evidence of cellulitis. MS/ Extremity: Pulses equal, no cyanosis. Neurovascular intact. Full, normal range of motion. Neuro: Awake and alert, GCS 15, oriented to person, place, time, and situation. Cranial nerves II-XII grossly intact. Motor strength 5/5 in all extremities. Sensory grossly intact. Cerebellar exam normal. Normal gait. Psych: Awake, alert, with orientation to person, place and time. Behavior, mood, and affect are within normal limits. Vital Signs: 09:10 BP 114 / 75; Pulse 74; Resp 16; Temp 97.3; Pulse Ox 98% on R/A; Weight 56.7 kg; Height iw 5 ft. 7 in. (170.18 cm); Pain 10/10; 10:36 BP 147 / 90; Pulse 80; Resp 16 S; Pulse Ox 100% on R/A; ca1 12:05 BP 148 / 89; Pulse 79; Resp 19 S; Pulse Ox 100% on R/A; ca1 09:10 Body Mass Index 19.58 (56.70 kg, 170.18 cm) iw MDM: 11:47 Patient medically screened. kdr 15:06 HEART Score: History: Slightly Suspicious (0), ECG: Non specific repolarization kdr disturbance / LBTB / PM (1), Age: < or = 45 years (0), Risk Factors: No Risk Factors Known (0), Troponin: < or = 1 x Normal Limit (0). Data reviewed: vital signs, nurses notes. 02/06 09:45 Order name: XRAY Chest (1 view) kdr 02/06 09:45 Order name: EKG; Complete Time: 09:46 kdr 02/06 10:47 Order name: RAD EDMS 02/06 09:45 Order name: Cardiac monitoring; Complete Time: 12:07 kdr 02/06 09:45 Order name: EKG - Nurse/Tech; Complete Time: 12:07 kdr 02/06 09:45 Order name: O2 Per Protocol; Complete Time: 10:57 kdr 02/06 09:45 Order name: O2 Sat Monitoring; Complete Time: 10:57 kdr Administered Medications: 11:17 Drug: Zofran 4 mg Route: PO; ca1 12:06 Follow up: Response: No adverse reaction; Nausea is decreased ca1 12:06 Drug: Ibuprofen 600 mg Route: PO; ca1 12:06 Follow up: Response: No adverse reaction; Medication administered at discharge. ca1 Disposition: 02/06/19 11:47 Discharged to Home. Impression: Chest pain, unspecified, Other chest pain. - Condition is Stable. - Discharge Instructions: Nonspecific Chest Pain, [id number], Nausea, Adult, [id number]. - Prescriptions for Zofran 4 mg Oral Tablet - take 1 tablet by ORAL route every 4-6 hours As needed; 16 tablet. - Medication Reconciliation Form, Thank You Letter form. - Follow up: Private Physician; When: 1 - 2 days; Reason: If symptoms return, Further diagnostic work-up, Recheck today's complaints, Continuance of care, Re-evaluation by your physician. - Problem is an acute exacerbation. - Symptoms have improved. Signatures: Dispatcher [employer] EDMS Mohsen Carlton MD MD kdr Alisa Edmondson RN RN iw Rachna Enriquez RN RN ca1 Corrections: (The following items were deleted from the chart) 12:08 09:45 IV Saline Lock ordered. kdr ca1 12:08 09:45 Labs collected and sent ordered. kdr ca1 12:13 09:46 BASIC METABOLIC PANEL+C.LAB.BRZ ordered. EDMS EDMS 12:13 09:46 CBC+H.LAB.BRZ ordered. EDMS EDMS 12:13 09:46 HEPATIC FUNCTION+C.LAB.BRZ ordered. EDMS EDMS 12:13 09:46 MAGNESIUM+C.LAB.BRZ ordered. EDMS EDMS 12:13 09:46 PROBNP+C.LAB.BRZ ordered. EDMS EDMS 12:13 09:46 PROTIME (+INR)+COAG.LAB.BRZ ordered. EDMS EDMS 12:13 09:46 TROPONIN (EMERG DEPT USE ONLY)+C.LAB.BRZ ordered. EDMS EDMS 12:13 09:46 URINE DRUG SCREEN+CHEM UR.LAB.BRZ ordered. EDMS EDMS 12:13 09:47 ETHANOL+C.LAB.BRZ ordered. EDMS EDMS 12:17 11:47 02/06/2019 11:47 Discharged to Home. Impression: Chest pain, unspecified; Other ca1 chest pain. Condition is Stable. Forms are Medication Reconciliation Form, Thank You Letter, Antibiotic Education, Prescription Opioid Use. Follow up: Private Physician; When: 1 - 2 days; Reason: If symptoms return, Further diagnostic work-up, Recheck today's complaints, Continuance of care, Re-evaluation by your physician. Problem is an acute exacerbation. Symptoms have improved. kdr
--- NOTE | 2019-02-06 11:48 | ER ---
Nurse's Notes [facility] Name: Tana Rao Age: 44 yrs Sex: Female : 1975 Arrival Date: 02/06/2019 Time: 08:46 Bed 20 Private MD: Diagnosis: Chest pain, unspecified;Other chest pain Presentation: 02/06 09:09 Presenting complaint: Patient states: nausea, left side pain, feels dehydrated since iw this morning. Transition of care: patient was not received from another setting of care. Onset of symptoms was February 06, 2019. Risk Assessment: Do you want to hurt yourself or someone else? Patient reports no desire to harm self or others. Initial Sepsis Screen: Does the patient meet any 2 criteria? No. Patient's initial sepsis screen is negative. Does the patient have a suspected source of infection? No. Patient's initial sepsis screen is negative. Care prior to arrival: None. 09:09 Method Of Arrival: Wheelchair iw 09:09 Acuity: AMY 3 iw INSTRUMENTATION FITTER: 12:07 LMP N/A - Hysterectomy ca1 Historical: - Allergies: 09:10 Demerol; iw 09:10 GABAPENTIN; iw 09:10 ketorolac tromethamine; iw 09:10 Lyrica; iw 09:10 sulfamethoxazole-trimethoprim; iw 09:10 Tramadol HCl; iw - Home Meds: 09:10 thyroid medicine [Active]; iw - PMHx: 09:10 Anxiety; Bipolar disorder; Chronic pain; Fibromyalgia; Hypothyroidism; Multiple iw Sclerosis; Parkinsons; Rheumatoid Arthritis; UTI; - Immunization history:: Adult Immunizations not up to date. - Social history:: Smoking status: Patient uses tobacco products. - Ebola Screening: : Patient negative for fever greater than or equal to 101.5 degrees Fahrenheit, and additional compatible Ebola Virus Disease symptoms Patient denies exposure to infectious person Patient denies travel to an Ebola-affected area in the 21 days before illness onset No symptoms or risks identified at this time. Screenin:45 Abuse screen: Denies threats or abuse. Denies injuries from another. Nutritional ca1 screening: No deficits noted. Tuberculosis screening: No symptoms or risk factors identified. Fall Risk Fall in past 12 months (25 points). Assessment: 10:45 General: Appears in no apparent distress. uncomfortable, Behavior is cooperative, ca1 appropriate for age. Pain: Complains of pain in chest Pain currently is 3 out of 10 on a pain scale. Quality of pain is described as burning. Neuro: Level of Consciousness is awake, alert, obeys commands, Oriented to person, place, time, situation. Cardiovascular: Heart tones S1 S2 present Capillary refill < 3 seconds Patient's skin is warm and dry. Respiratory: Airway is patent Respiratory effort is even, unlabored, Respiratory pattern is regular, symmetrical, Breath sounds are clear bilaterally. GI: Abdomen is flat, non-distended, Bowel sounds present X 4 quads. Abd is soft and non tender X 4 quads. Reports nausea, since years ago, but has been bad for the past few months and worst today. I ran out of Zofran too. : No deficits noted. No signs and/or symptoms were reported regarding the genitourinary system. EENT: No deficits noted. No signs and/or symptoms were reported regarding the EENT system. Derm: Skin is intact, is healthy with good turgor, Skin is pink, warm \\T\\ dry. Musculoskeletal: Circulation, motion, and sensation intact. Capillary refill < 3 seconds, Range of motion: intact in all extremities. 11:00 Reassessment: pt refusing to allow me to draw labs, states "I don't want no labs, she iw already stick me two times, I don;t need labs, I know it's all due to my MS". 11:41 Reassessment: Followed up if she wanted lab personnel to draw blood and give us urine ca1 sample. Pt states, "I don't want to do it, even the urine. I am just going to go home and if you can all give me some prescription for Zofran cause I ran out of them". Notified provider. 11:56 Reassessment: Patient appears in no apparent distress at this time. Patient is alert, ca1 oriented x 3, equal unlabored respirations, skin warm/dry/pink. Pt ambulated to restroom with steady gait. Vital Signs: 09:10 BP 114 / 75; Pulse 74; Resp 16; Temp 97.3; Pulse Ox 98% on R/A; Weight 56.7 kg; Height iw 5 ft. 7 in. (170.18 cm); Pain 10/10; 10:36 BP 147 / 90; Pulse 80; Resp 16 S; Pulse Ox 100% on R/A; ca1 12:05 BP 148 / 89; Pulse 79; Resp 19 S; Pulse Ox 100% on R/A; ca1 09:10 Body Mass Index 19.58 (56.70 kg, 170.18 cm) ED Course: 08:46 Patient arrived in ED. mr 09:09 Triage completed. iw 09:10 Arm band placed on. iw 09:18 EKG done, by electromechanical technologist. reviewed by Mohsen Carlton MD. at1 09:29 Mohsen Carlton MD is Attending Physician. kdr 10:32 Rachna Enriquez, RN is Primary Nurse. ca1 10:45 Patient has correct armband on for positive identification. Placed in gown. Bed in low ca1 position. Call light in reach. Side rails up X 1. monitoring manager on. Pulse ox on. NIBP on. Warm blanket given. 10:45 No provider procedures requiring assistance completed. ca1 10:45 Missed attempt(s): 22 gauge in left forearm. Bleeding controlled, band aid applied, ca1 catheter tip intact. 10:48 RAD In Process Unspecified. EDMS 10:55 Missed attempt(s): 24 gauge in right forearm. Bleeding controlled, band aid applied, ca1 catheter tip intact. 12:06 Patient did not have IV access during this emergency room visit. ca1 Administered Medications: 11:17 Drug: Zofran 4 mg Route: PO; ca1 12:06 Follow up: Response: No adverse reaction; Nausea is decreased ca1 12:06 Drug: Ibuprofen 600 mg Route: PO; ca1 12:06 Follow up: Response: No adverse reaction; Medication administered at discharge. ca1 Outcome: 11:47 Discharge ordered by . kdr 12:07 Discharged to home ambulatory, with significant other. ca1 12:07 Condition: stable 12:07 Discharge instructions given to patient, Instructed on discharge instructions, follow up and referral plans. medication usage, Demonstrated understanding of instructions, follow-up care, medications. 12:17 Patient left the ED. ca1 Signatures: Dispatcher [employer] EDMS Mohsen Carlton MD MD kdr RiveraBelkis Alisa Edmondson RN RN iw Danette Gamble, senior support engineer EKG Tat1 Rachna Enriquez RN RN ca1 Corrections: (The following items were deleted from the chart) 11:57 11:41 Reassessment: Followed up if she wanted lab personnel to draw blood and give us ca1 urine sample. Pt states, "I don't want to do it, even the urine. I am just going to go home". ca1 12:04 10:45 Pain: Denies pain. ca1 ca1
[2019-02-06] MEDS ORDERED: IBUPROFEN 400 MG TAB ONE (12:02)
[2019-02-06] MEDS ORDERED: IBUPROFEN 200 MG TAB PO ONE (12:02)
[2019-02-06 12:29] VITALS: O2SAT 100
[2019-02-06 12:31] VITALS: TEMP 97.3
[2019-02-06 12:32] VITALS: BP 148/89
--- NOTE | 2019-02-06 13:25 | EKG ---
Test Date: 2019-02-06 Test Time: 09:13:11 Commercial Real Estate Agent: BRANDEE MEASUREMENT RESULTS: Intervals: Rate: 71 NM: 122 QRSD: 78 QT: 444 QTc: 482 [place]: P: 68 NM: 122 QRS: 74 T: 81 INTERPRETIVE STATEMENTS: Normal sinus rhythm Prolonged QT Abnormal ECG Compared to ECG 01/24/2018 12:49:13 Prolonged QT interval now present Atrial abnormality no longer present Electronically Signed On 02-06-19 13:24:40 MAKEUP ARTISTRY INSTRUCTOR by Laci Espinoza
== END 2019-02-06 12:17 | disposition home or self-care (01) ==
LOC: ER 08:39
DX: R07.89 Other chest pain (principal); E03.9 Hypothyroidism, unspecified; Z72.0 Tobacco use; Z88.2 Allergy status to sulfonamides; Z88.5 Allergy status to narcotic agent; Z88.6 Allergy status to analgesic agent; Z88.8 Allergy status to other drugs, medicaments and biological substances
CPT/HCPCS: 71045; 93005; 99284

== ENCOUNTER 2019-02-07 09:19 | Emergency (ER) | payer OTHER ==
--- NOTE | 2019-02-07 10:27 | ER ---
Nurse's Notes [facility] Name: Tana Rao Age: 44 yrs Sex: Female : 1975 Arrival Date: 02/07/2019 Time: 09:23 Bed Waiting Private MD: Diagnosis: Presentation: 02/07 09:41 Presenting complaint: Patient states: i have having indigestion and burning in my tw2 stomach and i have been falling alot. Transition of care: patient was not received from another setting of care. Onset of symptoms was February 07, 2019. Risk Assessment: Do you want to hurt yourself or someone else? Patient reports no desire to harm self or others. Initial Sepsis Screen: Does the patient meet any 2 criteria? No. Patient's initial sepsis screen is negative. Does the patient have a suspected source of infection? No. Patient's initial sepsis screen is negative. Note pt is drinking an iced caramel frapachino in triage at this time. Care prior to arrival: None. 09:41 Method Of Arrival: Ambulatory tw2 09:41 Acuity: AMY 4 tw2 Triage Assessment: 09:43 General: Appears in no apparent distress. unkempt, Behavior is talkative. Pain: tw2 Complains of pain in "all over". 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 - Social history:: Smoking status: . - Ebola Screening: : Patient denies travel to an Ebola-affected area in the 21 days before illness onset. Assessment: 10:15 Reassessment: Pt called to exam room. unable to locate patient. ss 10:20 Reassessment: unable to locate patient. ss 10:24 Reassessment: Unable to locate patient in ED lobby or parking lot. ss Vital Signs: 09:43 BP 98 / 64; Pulse 96; Resp 17; Temp 97.7(TE); Pulse Ox 99% on R/A; Weight 57.61 kg (R); tw2 Height 5 ft. 7 in. (170.18 cm); Pain 10; 09:43 Body Mass Index 19.89 (57.61 kg, 170.18 cm) tw2 ED Course: 09:23 Patient arrived in ED. mr 09:43 Triage completed. tw2 09:43 Arm band placed on. tw2 10:24 No provider procedures requiring assistance completed. Patient did not have IV access ss during this emergency room visit. Administered Medications: No medications were administered Outcome: 10:24 Eloped from waiting room, before seeing physician ss 10: Patient left the ED. Signatures: Belkis Galan Shelby, RN RN Yu Hopson RN RN tw2
[2019-02-07 11:43] VITALS: BP 98/64; TEMP 97.7; O2SAT 99
== END 2019-02-07 10:26 | disposition left against medical advice (07) ==
LOC: ER 09:19
DX: Z02.9 Encounter for administrative examinations, unspecified (principal); Z53.21 Procedure and treatment not carried out due to patient leaving prior to being seen by health care provider
CPT/HCPCS: 99281

== ENCOUNTER 2019-02-16 17:33 | Emergency (ER) | payer OTHER ==
--- NOTE | 2019-02-16 18:40 | ER ---
Nurse's Notes [facility] Name: Tana Rao Age: 44 yrs Sex: Female : 1975 Arrival Date: 02/16/2019 Time: 17:37 Bed Waiting Private MD: Diagnosis: Presentation: 02/16 17:48 Presenting complaint: Patient states: Pain to the left side that radiates to the chest aj1 and back. Patient describes that pain as a burning pain. Patient also reports shortness of breath, Denies palpitation, denies cough, congestion, fever. Transition of care: patient was not received from another setting of care. Onset of symptoms was February 16, 2019. Risk Assessment: Do you want to hurt yourself or someone else? Patient reports no desire to harm self or others. Initial Sepsis Screen: Does the patient meet any 2 criteria? Yes Does the patient have a suspected source of infection? No. Patient's initial sepsis screen is negative. Care prior to arrival: None. 17:48 Method Of Arrival: Ambulatory aj 17:48 Acuity: AMY 3 aj1 Triage Assessment: 17:51 General: Appears in no apparent distress. comfortable, Behavior is calm, cooperative, aj1 appropriate for age. Pain: Pain currently is 10 out of 10 on a pain scale. Neuro: Level of Consciousness is awake, alert, obeys commands. Cardiovascular: Patient's skin is warm and dry. Respiratory: Airway is patent Respiratory effort is even, unlabored, Respiratory pattern is regular, symmetrical. 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 - Social history:: Smoking status: Patient uses tobacco products, smokes one-half pack cigarettes per day. - Ebola Screening: : Patient denies travel to an Ebola-affected area in the 21 days before illness onset. Vital Signs: 17:51 BP 122 / 88; Pulse 97; Resp 18; Temp 98.9; Pulse Ox 100% on R/A; Weight 56.7 kg (R); aj1 Height 5 ft. 7 in. (170.18 cm) (R); Pain 10/10; 17:51 Body Mass Index 19.58 (56.70 kg, 170.18 cm) aj1 ED Course: 17:37 Patient arrived in ED. mr 17:50 Triage completed. aj1 17:51 Arm band placed on Patient placed in waiting room, Patient notified of wait time. EKG aj1 completed in triage. Results shown to MD. Administered Medications: No medications were administered Outcome: 18:41 Patient left the ED. hb 18:42 Patient left the ED. hb Signatures: Jami Clayton RN RN aj1 Belkis Galan mr Annabelle Abdul RN RN hb Corrections: (The following items were deleted from the chart) 18:40 18:38 Patient left the ED. hb hb
[2019-02-16 20:19] VITALS: BP 122/88; TEMP 98.9; O2SAT 100
--- NOTE | 2019-02-18 20:51 | EKG ---
Test Date: 2019-02-16 Test Time: 17:47:00 Functional Tester Typewriters: TAMARA MEASUREMENT RESULTS: Intervals: Rate: 86 IN: 150 QRSD: 72 QT: 374 QTc: 447 [place]: P: 82 IN: 150 QRS: 76 T: 73 INTERPRETIVE STATEMENTS: Normal sinus rhythm Right atrial enlargement Borderline ECG Compared to ECG 02/06/2019 09:13:11 Atrial abnormality now present Prolonged QT interval no longer present Electronically Signed On 02-18-19 20:47:06 CORE ASSEMBLY SUPERVISOR by Orlando Donovan
== END 2019-02-16 18:42 | disposition left against medical advice (07) ==
LOC: ER 17:33
DX: Z02.9 Encounter for administrative examinations, unspecified (principal); Z53.21 Procedure and treatment not carried out due to patient leaving prior to being seen by health care provider
CPT/HCPCS: 93005; 99281

== ENCOUNTER 2021-10-08 17:37 | Emergency (ER) | payer OTHER ==
--- OUTSIDE RECORDS SUMMARY | 2021-10-08 17:40 | XMS REPORT | Continuity of Care Document ---
:1975 Author Organization [facility] t Address [address] [place] [address] [address] [place] [address] Care Team Providers Name Role Phone SOL Attending Clinician Unavailable Waldo Waters DO Attending Clinician WALDO WATERS Attending Clinician Unavailable SOL Admitting Clinician Unavailable Payers Payer Name Policy Type Policy Number Effective Date Expiration Date S ource Problems Condition Condition Condition Status Onset Resolution Last Treating Co mments Source Name Details Category Date Date Treatment Clinician Date No known No known Disease Unive rs active active ity of problems problems [facility] Allergies, Adverse Reactions, Alerts Allergy Allergy Status Severity Reaction(s) Onset Inactive Treating Comm ents Source Name Type Date Date Clinician Gabapent Propensi Active Nausea Univer s in ty to and/or 05-15 ity of adverse Vomiting 00:00: [place] reaction 00 [facility] GABAPENT DRUG Active N/V Univers IN INGREDI 05-15 ity of 00:00: [place] 00 [facility] Pregabal Propensi Active Dizziness 2014-02 Uni vers in ty to 04-06 ity of adverse 00:00: [place] reaction 00 [facility] PREGABAL DRUG Active Dizziness 2014-02 Unive rs IN INGREDI 2 ity of 00:00: [place] 00 [facility] TRAMADOL DRUG Active N/V Univers HCL INGREDI 11-02 ity of 00:00: [place] 00 [facility] Tramadol Propensi Active Nausea Univer s Hcl ty to and/or 11-02 ity of adverse Vomiting 00:00: [place] reaction 00 [facility] KETOROLA DRUG Active Hallucinates Un vero C INGREDI 04-05 ity of TROMETHA 00:00: [place] MINE 00 [facility] Ketorola Propensi Active Hallucinatio 2013-0 Univers c ty to ns 2-07 ity of Trometha adverse 00:00: [place] mine reaction 00 Medical s to Branch drug SULFAMET DRUG Active N/V Univers HOXAZOLE INGREDI 6-16 ity of 00:00: [place] 00 Medical Branch DIAZEPAM DRUG Active Unknown-Cmnt Un vero INGREDI 6-16 ity of 00:00: [place] 00 Medical Branch Sulfamet Propensi Active Nausea Univer s hoxazole ty to and/or 16 ity of adverse Vomiting 00:00: [place] reaction 00 Medical s Branch Diazepam Propensi Active Unknown - Can't Uni vers ty to See comments 08-12 move her it y of adverse 00:00: arms & [place] reaction 00 legs Medical s Branch Social History Social Habit Start Date Stop Date Quantity Comments Source Sex Assigned At [facility] y of [facility] [place] [facility] Exposure to Not sure [facility] SARS-CoV-2 (event) [facility] Cigarette 2016-10-28 2016-10-28 University of pack-years 00:00:00 00:00:00 [facility] Tobacco use and 2016-10-28 2016-10-28 Never used [facility] y of exposure 00:00:00 00:00:00 [facility] [place] [facility] Alcohol intake 2016-10-28 2016-10-28 Current University 00:00:00 00:00:00 non-drinker of [facility] alcohol Branch (finding) Cigarettes smoked 2016-10-28 2016-10-28 Univers ity of current (pack per 00:00:00 00:00:00 [place] ) - Reported Branch Smoking Status Start Date Stop Date Source Current every day smoker 2016-10-28 00:00:00 Uni versity of [facility] [place] [facility] Medications Ordered Filled Start Stop Current Ordering Indication Dosage Frequency Signature Comments Components Source Medication Medication Date Date Medication? Clinician (SIG) Name Name dimethyl 2014-02 Yes 240mg Take 240 Univ ers fumarate 2-08 mg by ity of (TECFIDERA) 14:55: mouth 2 Arsenio as 240 mg 53 (two) Medical capsule times Branch daily. clorazepate 2014-02 Yes 7.5mg Take 7.5 U nivers (TRANXENE) 2-08 mg by ity of 7.5 mg 14:43: mouth at [place] tablet 57 bedtime. Medical Branch mirtazapine 2014-02 Yes 30mg Take 30 mg Univers (REMERON) 2-08 by mouth ity of 30 mg 14:43: at [place] tablet 56 bedtime. Medical Branch lithium 2014-02 Yes 600mg Take 600 Unive rs carbonate 1-18 mg by ity of (LITHONATE) 00:00: mouth 2 Arsenio as 300 mg 00 (two) Medical capsule times Branch daily. Indication s: Take 1 tablet in the AM and 2 in the evening before bed. levothyroxi 2014-02 Yes 100ug Take 100 U nivers ne 1-13 mcg by ity of (SYNTHROID) 00:00: mouth [place] 100 mcg 00 daily. Medical tablet Branch esomeprazol 2013-02 Yes 40mg Take 40 mg Univers e (NEXIUM) 1-06 by mouth ity o f 40 mg 16:19: daily with [place] capsule 38 breakfast. Medica l Branch Vital Signs Vital Name Observation Time Observation Value Comments Source Systolic blood 2020-03-06 18:03:00 118 mm[Hg] Univer sity of pressure [facility] [place] [facility] Diastolic blood 2020-03-06 18:03:00 96 mm[Hg] Unive rsity of pressure [facility] Heart rate 2020-03-06 18:03:00 75 /min [facility] Body temperature 2020-03-06 18:03:00 36.83 Ania [facility] Respiratory rate 2020-03-06 18:03:00 18 /min [facility] Body weight 2020-03-06 18:03:00 63.504 kg [facility] BMI 2020-03-06 18:03:00 22.60 kg/m2 [facility] Oxygen saturation in 2020-03-06 18:03:00 100 /min [facility] Arterial blood by [facility] Pulse oximetry Branch Procedures This patient has no known procedures. Encounters Start End Encounter Admission Attending Care Care Encounter Source Date/Time Date/Time Type Type Clinicians Facility Department ID 2021-09-07 2021-09-07 Outpatient ANDI ALEXANDRA [id number] 04:13:00 04:13:00 HN [id number] da [facility] h Program 2020-03-06 2020-03-06 Emergency KATIE Waters [id number] Univers 11:57:00 13:33:00 Waldo Belle [id number] i ty of Jani [id number] [facility] [id number] [place] [id number] Branch 2020-03-06 2020-03-06 Emergency X SINGER [facility] ERT [id number] Univers 11:57:00 11:57:00 WALDO gee of [facility] Results This patient has no known results.
--- NOTE | 2021-10-08 18:45 | ER ---
Nurse's Notes [facility] Name: Tana Rao Age: 46 yrs Sex: Female : 1975 Arrival Date: 10/08/2021 Time: 17:39 Bed 5 Private MD: Diagnosis: Chest pain, unspecified Presentation: 10/08 17:49 Chief complaint: EMS states: the patient was at [facility] and started complaining of bm7 chest pain it seems to be more anxiety than anything and she has a long history. Coronavirus screen: At this time, the client does not indicate any symptoms associated with coronavirus-19. Ebola Screen: No symptoms or risks identified at this time. Initial Sepsis Screen: Does the patient meet any 2 criteria? No. Patient's initial sepsis screen is negative. Does the patient have a suspected source of infection? No. Patient's initial sepsis screen is negative. Risk Assessment: Do you want to hurt yourself or someone else? Patient reports no desire to harm self or others. Onset of symptoms was October 08, 2021. 17:49 Method Of Arrival: EMS: [facility] 17:49 Acuity: AMY 3 bm7 Historical: - Allergies: 17:41 Demerol; ss 17:41 GABAPENTIN; ss 17:41 ketorolac tromethamine; ss 17:41 Lyrica; ss 17:41 sulfamethoxazole-trimethoprim; ss 17:41 Tramadol HCl; ss - PMHx: 17:41 Anxiety; Bipolar disorder; Chronic pain; Fibromyalgia; Hypothyroidism; Multiple ss Sclerosis; Parkinsons; Rheumatoid Arthritis; Seizures; UTI; Assessment: 19:00 Reassessment: pt states she wants to go home and does not have chest pain any more. ERP bm7 notified and pt discharge without treatment. 19:01 Reassessment: pt refusing further treatment. bm7 Vital Signs: 17:49 BP 98 / 71; Pulse 86; Resp 16; Temp 97.7(TE); Pulse Ox 99% on R/A; Weight 53.07 kg (R); bm7 Height 5 ft. 7 in. (170.18 cm); Pain 0/10; 17:49 Body Mass Index 18.32 (53.07 kg, 170.18 cm) bm7 ED Course: 17:39 Patient arrived in ED. eb 17:39 Omar Alaniz MD is Attending Physician. jr11 17:49 Miguelina Brock, RN is Primary Nurse. bm7 17:51 Triage completed. bm7 18:31 XRAY Chest (1 view) In Process Unspecified. EDMS Administered Medications: No medications were administered Outcome: 18:45 Discharge ordered by . jr11 19:01 Patient left the ED. 7 Signatures: Dispatcher [employer] EDMS Johana Hernandez RN RN Jyoti Henning Brittany, RN RN [facility] Omar Alaniz MD MD jr
--- NOTE | 2021-10-08 18:45 | EDPHYS ---
Physician Documentation [facility] Name: Tana Rao Age: 46 yrs Sex: Female : 1975 Arrival Date: 10/08/2021 Time: 17:39 Bed 5 Private MD: ED Physician Omar Alaniz HPI: 10/08 17:41 This 46 yrs old Female presents to ER via Unassigned with complaints of CP. jr11 17:41 The patient or guardian reports chest pain that is located primarily in the substernal jr11 area. Onset: 2 day(s) ago. The pain does not radiate. Associated signs and symptoms: Pertinent positives: anxiety. The chest pain is described as aching. Duration: The patient or guardian reports a single episode. Modifying factors: The symptoms are alleviated by nothing. the symptoms are aggravated by Pt states she gets these CP and sleeping makes them go away. Severity of pain: At its worst the pain was moderate in the emergency department the pain is unchanged. Denies exertional pain, does not cross diaphragm, not described as tearing . Historical: - Allergies: 17:41 Demerol; ss 17:41 GABAPENTIN; ss 17:41 ketorolac tromethamine; ss 17:41 Lyrica; ss 17:41 sulfamethoxazole-trimethoprim; ss 17:41 Tramadol HCl; ss - PMHx: 17:41 Anxiety; Bipolar disorder; Chronic pain; Fibromyalgia; Hypothyroidism; Multiple ss Sclerosis; Parkinsons; Rheumatoid Arthritis; Seizures; UTI; ROS: 17:41 All other systems are negative. jr11 Exam: 17:41 Constitutional: This is a well developed, well nourished patient who is awake, alert, jr11 and in no acute distress. Head/Face: Normocephalic, atraumatic. Eyes: Extra-ocular motions intact. Lids and lashes normal. Conjunctiva and sclera are non-icteric and not injected. Cornea within normal limits. Periorbital areas with no swelling, redness, or edema. ENT: Nares patent. No nasal discharge, no septal abnormalities noted. Oropharynx with no redness, swelling, or masses, exudates, or evidence of obstruction, uvula midline. Mucous membranes moist. Neck: Trachea midline, no thyromegaly or masses palpated, and no cervical lymphadenopathy. Supple, full range of motion without nuchal rigidity, or vertebral point tenderness. No Meningismus. Chest/axilla: Normal chest wall appearance and motion. Nontender with no deformity. No lesions are appreciated. Cardiovascular: Regular rate and rhythm with a normal S1 and S2. No gallops, murmurs, or rubs. Normal PMI, no JVD. No pulse deficits. Respiratory: Lungs have equal breath sounds bilaterally, clear to auscultation and percussion. No rales, rhonchi or wheezes noted. No increased work of breathing, no retractions or nasal flaring. Abdomen/GI: Soft, non-tender, with normal bowel sounds. No distension or tympany. No guarding or rebound. No evidence of tenderness throughout. Back: No spinal tenderness. No costovertebral tenderness. Full range of motion. Skin: Warm, dry with normal turgor. Normal color with no rashes, no lesions, and no evidence of cellulitis. MS/ Extremity: Pulses equal, no cyanosis. Neurovascular intact. Full, normal range of motion. Psych: anxious Vital Signs: 17:49 BP 98 / 71; Pulse 86; Resp 16; Temp 97.7(TE); Pulse Ox 99% on R/A; Weight 53.07 kg (R); bm7 Height 5 ft. 7 in. (170.18 cm); Pain 0/10; 17:49 Body Mass Index 18.32 (53.07 kg, 170.18 cm) bm7 MDM: 17:39 Patient medically screened. [facility] 17:43 Differential diagnosis: atypical CP, anxiety. Data reviewed: vital signs, nurses notes. [facility] ED course: Patient is a 46-year-old with history of chronic pain hypothyroid states that she also has Parkinson's and fibromyalgia here for atypical chest pain, pain is nonexertional no vomiting, no radiation, not described as tearing, no concern for dissection. Patient if troponin is negative, will have a heart score less than 3, would prefer outpatient restratification. Patient very anxious, likely cause of her chest pain. Patient states she is had similar pain to this before for which she sleeps but this time she could not sleep because of her roommate.. 17:49 ED course: EKG interpreted by me shows normal sinus rhythm, normal intervals, normal [facility] axis, EKG normal.. 18:44 ED course: Patient has a capacity to make her own medical decisions, at this time does jrLulú not want to wait for the rest of her labs no results, states she would like to leave at this time, understands the risk of missing pulmonary embolus heart attack, welcome to return at any point to finish her work-up. 10/08 17:40 Order name: XRAY Chest (1 view) [facility] 10/08 17:40 Order name: EKG; Complete Time: 17:42 [facility] 10/08 17:40 Order name: Cardiac monitoring [facility] 10/08 17:40 Order name: EKG - Nurse/Tech [facility] 10/08 17:40 Order name: IV Saline Lock [facility] 10/08 17:40 Order name: Labs collected and sent [facility] 10/08 17:40 Order name: O2 Per Protocol [facility] 10/08 17:40 Order name: O2 Sat Monitoring [facility] Administered Medications: No medications were administered Disposition Summary: 10/08/21 18:45 Discharge Ordered Location: Home [facility] Condition: Stable [facility] Diagnosis - Chest pain, unspecified [facility] Discharge Instructions: - Discharge Summary Sheet [facility] - Nonspecific Chest Pain, Adult [facility] Forms: - Medication Reconciliation Form 11 - Thank You Letter jr11 - Antibiotic Education jr11 - Prescription Opioid Use [facility] Signatures: Dispatcher [employer] Johana Orellana RN RN Omar Alaniz MD MD jr11
[2021-10-08 19:06] VITALS: BP 98/71; TEMP 97.7; O2SAT 99
--- NOTE | 2021-10-08 19:13 | RAD REPORT ---
EXAM DESCRIPTION: RAD - Chest Single View - 10/08/2021 6:29 pm CLINICAL HISTORY: Chest pain COMPARISON: Portable 02/06/2019 TECHNIQUE: AP portable chest image was obtained 10/08/2021 6:29 pm . FINDINGS: No focal lung parenchymal process. Chronic interstitial lung pattern matches comparison. H eart and vasculature are normal. No measurable pleural effusion and no pneumothorax. No acute bony ab normality seen. No acute aortic findings suspected. IMPRESSION: No acute cardiopulmonary process. No significant change from comparison study.
== END 2021-10-08 19:01 | disposition home or self-care (01) ==
LOC: ER 17:37
DX: R07.89 Other chest pain (principal); G20 Parkinson's disease; Z88.2 Allergy status to sulfonamides; Z88.5 Allergy status to narcotic agent; Z88.8 Allergy status to other drugs, medicaments and biological substances
CPT/HCPCS: 71045; 93005; 99283

== ENCOUNTER 2022-01-17 04:57 | Emergency (ER) | payer OTHER ==
[2022-01-17] MEDS ORDERED: HYDROCODONE/APAP 5/325 MG TAB ONE (05:37)
[2022-01-17] MEDS ORDERED: PROMETHAZINE 25 MG TABLET ONE (05:37)
--- NOTE | 2022-01-17 06:53 | EDPHYS ---
Physician Documentation [facility] Name: Tnaa Rao Age: 46 yrs Sex: Female : 1975 Arrival Date: 01/17/2022 Time: 05:00 Bed 12 Private MD: ED Physician Britney Fong HPI: 01/17 06:46 This 46 yrs old Female presents to ER via Wheelchair with complaints of Fall Injury, sd2 Pain All Over, Headache. 06:46 46 yo F presents with CC of injuries s/p fall. Reports she was knocked over by a dog on monday hitting her head on the concrete. States headache, intermittent blurred vision in R eye and intermittent hearing loss in R ear since then and pain from her head "all the way down to my tailbone." Taking ASA and Tylenol at home with minimal relief. Denies CP or SOB. Also complains of UTI symptoms and states she gets these every 2-3 months "like clockwork" with urinary hesitancy. . 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 - Social history:: Smoking status: Patient reports the use of cigarette tobacco products, smokes one pack cigarettes per day. ROS: 06:46 Constitutional: Negative for fever, chills, and weight loss, Eyes: Negative for injury, sd2 pain, redness, and discharge, Positive for blurred vision ENT: Negative for injury, pain, and discharge, Positive for hearing loss Cardiovascular: Negative for chest pain, palpitations, and edema, Respiratory: Negative for shortness of breath, cough, wheezing. Abdomen/GI: Negative for abdominal pain, nausea, vomiting, diarrhea. Back: Positive for injury and pain, : Positive for dysuria, urinary frequency, hesitancy, Negative for urgency and hematuria. MS/Extremity: Negative for injury and deformity, Skin: Negative for injury, rash, and discoloration, Neuro: Positive for headache, Negative for numbness and tingling. Exam: 06:46 Constitutional: This is a well developed, well nourished patient who is awake, alert, sd2 and in no acute distress. Head/Face: Normocephalic, atraumatic. Eyes: EOMI, normal conjunctiva bilaterally, vision grossly intact ENT: Nares patent. No nasal discharge, no septal abnormalities noted. Tympanic membranes are normal and external auditory canals are clear. Oropharynx with no redness, swelling, or masses, exudates, or evidence of obstruction, uvula midline. Mucous membranes moist. Chest/axilla: Normal chest wall appearance and motion. Nontender with no deformity. Cardiovascular: Regular rate and rhythm with a normal S1 and S2. No gallops, murmurs, or rubs. 2+ distal pulses. Respiratory: Lungs have equal breath sounds bilaterally, clear to auscultation and percussion. No rales, rhonchi or wheezes noted. No increased work of breathing, no retractions or nasal flaring. Abdomen/GI: Soft, non-tender, with normal bowel sounds. No guarding or rebound. No evidence of tenderness throughout. Back: Midline spinal tenderness present to all areas. No costovertebral tenderness. Full range of motion. Skin: Warm, dry with normal turgor. Normal color with no rashes, no lesions, and no evidence of cellulitis. MS/ Extremity: Pulses equal, no cyanosis. Neurovascular intact. Full, normal range of motion. Ambulatory without difficulty. Neuro: Awake and alert, GCS 15, oriented to person, place, time, and situation. Cranial nerves II-XII grossly intact. Motor strength 5/5 in all extremities. Sensory grossly intact. Psych: Awake, alert, with orientation to person, place and time. Behavior, mood, and affect are within normal limits. Vital Signs: 05:06 BP 131 / 72; Pulse 97; Resp 18; Temp 97.7; Pulse Ox 100% on R/A; Weight 54.43 kg; tw5 Height 5 ft. 6 in. (167.64 cm); Pain 9/10; 05:06 Body Mass Index 19.37 (54.43 kg, 167.64 cm) tw5 MDM: 05:16 Patient medically screened. sd2 06:46 Differential diagnosis: abrasion, closed head injury, contusion, fracture, laceration, sd2 sprain, among others. Data reviewed: vital signs, nurses notes, radiologic studies. Counseling: I had a detailed discussion with the patient and/or guardian regarding: the historical points, exam findings, and any diagnostic results supporting the discharge/admit diagnosis, radiology results, the need for outpatient follow up, to return to the emergency department if symptoms worsen or persist or if there are any questions or concerns that arise at home. ED course: Imaging reviewed with no acute traumatic injuries noted. Pt's pain improved following treatment. Advised continued supportive care and need for outpatient follow up as well as concussion precautions. Pt unable to urinate in ER and does not want to wait further to give urine sample. Will place on antibiotics due to patient's symptoms. She is comfortable with discharge plan for outpatient followup and verbalizes understanding of strict return precautions.. 01/17 05:31 Order name: CT Head C Spine sd2 01/17 05:31 Order name: CT Thoracic Spine Wo Cont sd2 01/17 05:31 Order name: CT Lumbar Spine Wo Con sd2 Administered Medications: 05:39 Drug: [place] (HYDROcodone-acetaminophen) 5 mg-325 mg 2 tabs Route: PO; tw5 07:01 Follow up: Response: No adverse reaction as6 05:39 Drug: Phenergan (promethazine) 25 mg Route: PO; tw 07:02 Follow up: Response: No adverse reaction as6 Disposition Summary: 01/17/22 06:52 Discharge Ordered Location: Home sd2 Problem: new sd2 Symptoms: have improved sd2 Condition: Stable sd2 Diagnosis - Unspecified injury of head, initial encounter sd2 - Concussion with loss of consciousness of 30 minutes or less sd2 - Acute back pain sd2 - Urinary tract infection sd2 Followup: sd2 - With: Private Physician - When: 2 - 3 days - Reason: Recheck today's complaints, Continuance of care, Re-evaluation by your physician Discharge Instructions: - Discharge Summary Sheet sd2 - Acute Back Pain, Adult sd2 - Head Injury, Adult sd2 - Urinary Tract Infection, Adult sd2 - Concussion, Adult sd2 Forms: - Medication Reconciliation Form sd2 - Thank You Letter sd2 - Antibiotic Education sd2 - Prescription Opioid Use sd2 Prescriptions: - tizanidine 2 mg Oral tablet - take 1 tablet by ORAL route every 8 hours As needed as needed; 15 tablet; sd2 Refills: 0, Product Selection Permitted - Cephalexin 500 mg Oral Capsule - take 1 capsule by ORAL route every 12 hours for 10 days; 20 capsule; Refills: sd2 0, Product Selection Permitted - Ibuprofen 600 mg Oral Tablet - take 1 tablet by ORAL route every 6 hours As needed take with food; 20 tablet; sd2 Refills: 0, Product Selection Permitted Signatures: Dispatcher [employer] Deisy Roe tw5 Britney Fong MD MD sd2 Luis Angel Blakely RN as6
--- NOTE | 2022-01-17 06:53 | ER ---
Nurse's Notes [facility] Name: Tana Rao Age: 46 yrs Sex: Female : 1975 Arrival Date: 01/17/2022 Time: 05:00 Bed 12 Private MD: Diagnosis: Unspecified injury of head, initial encounter;Concussion with loss of consciousness of 30 minutes or less;Acute back pain;Urinary tract infection Presentation: 01/17 05:06 Chief complaint: Patient states: "I got charged by a dog, and no one would help me get tw5 up." Spouse and/or significant other states: "Ever since her accident her balance has been a little off. The accident was Monday.". Coronavirus screen: Vaccine status: Patient reports being unvaccinated. Ebola Screen: Patient negative for fever greater than or equal to 101.5 degrees Fahrenheit, and additional compatible Ebola Virus Disease symptoms Patient denies exposure to infectious person. Patient denies travel to an Ebola-affected area in the 21 days before illness onset. Initial Sepsis Screen: Does the patient meet any 2 criteria? No. Patient's initial sepsis screen is negative. Does the patient have a suspected source of infection? No. Patient's initial sepsis screen is negative. Risk Assessment: Do you want to hurt yourself or someone else? Patient reports no desire to harm self or others. Onset of symptoms was March 17, 2021. 05:06 Method Of Arrival: Wheelchair tw 05:06 Acuity: AMY 3 tw5 Triage Assessment: 05:08 General: Appears in no apparent distress. slender, Behavior is restless. Pain: Pain tw5 currently is 9 out of 10 on a pain scale. 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 - Social history:: Smoking status: Patient reports the use of cigarette tobacco products, smokes one pack cigarettes per day. Screenin:39 Abuse screen: Denies threats or abuse. Denies injuries from another. Nutritional tw5 screening: No deficits noted. Tuberculosis screening: No symptoms or risk factors identified. Fall Risk Fall in past 12 months (25 points). Assessment: 05:39 General: Appears in no apparent distress. Behavior is restless. Neuro: Level of tw5 Consciousness is awake, alert, obeys commands. Vital Signs: 05:06 BP 131 / 72; Pulse 97; Resp 18; Temp 97.7; Pulse Ox 100% on R/A; Weight 54.43 kg; tw5 Height 5 ft. 6 in. (167.64 cm); Pain 9/10; 05:06 Body Mass Index 19.37 (54.43 kg, 167.64 cm) tw5 ED Course: 05:00 Patient arrived in ED. jj6 05:08 Triage completed. tw5 05:08 Arm band placed on. tw5 05:15 Britney Fong MD is Attending Physician. sd2 05:35 Deisy Ruiz is Primary Nurse. tw5 05:[address] Scan. tw5 05:39 Patient has correct armband on for positive identification. tw5 05:39 No provider procedures requiring assistance completed. Patient did not have IV access tw5 during this emergency room visit. 05:58 CT Head C Spine In Process Unspecified. EDMS 05:59 CT Thoracic Spine Wo Cont In Process Unspecified. EDMS 05:59 CT Lumbar Spine Wo Con In Process Unspecified. EDMS Administered Medications: 05:39 Drug: [place] (HYDROcodone-acetaminophen) 5 mg-325 mg 2 tabs Route: PO; tw5 07:01 Follow up: Response: No adverse reaction as6 05:39 Drug: Phenergan (promethazine) 25 mg Route: PO; tw5 07:02 Follow up: Response: No adverse reaction as6 Medication: 05:39 VIS not applicable for this client. tw5 Outcome: 06:52 Discharge ordered by . sd2 07:02 Discharged to home ambulatory. as6 07:02 Condition: stable 07:02 Discharge instructions given to patient, Instructed on discharge instructions, follow up and referral plans. medication usage, Demonstrated understanding of instructions, follow-up care, medications, Prescriptions given X 3. 07:02 Patient left the ED. as6 Signatures: Dispatcher [employer] MILAGROSDeisy Grier tw5 Keysha Prietoj6 Luis Angel Blakely RN RN as6 Britney Fong MD MD sd2 Corrections: (The following items were deleted from the chart) 05:10 05:06 Acuity: AMY 4 tw5 tw5
[2022-01-17 07:06] VITALS: BP 131/72; TEMP 97.7; O2SAT 100
--- NOTE | 2022-01-17 15:53 | RAD REPORT ---
EXAM DESCRIPTION: CT - CTHCSPWOC - 01/17/2022 6:54 am CLINICAL HISTORY: The patient is 46 years old and is Female; fall, head injury TECHNIQUE: Axial computed tomography images of the head/brain and cervical spine without intravenous contrast. Sagittal and coronal reformatted images were created and reviewed. This CT exam was pe rformed using one or more of the following dose reduction techniques: automated exposure control, a djustment of the mA and/or kV according to patient size, and/or use of iterative reconstruction techn ique. COMPARISON: No relevant prior studies available. FINDINGS: Brain: Mild nonspecific white matter changes likely related to chronic microvascular isc hemic disease. No hemorrhage. Ventricles: Unremarkable. No ventriculomegaly. Skull: No acute fracture. Sinuses: Unremarkable as visualized. No acute sinusitis. Mastoid air cells: Unremarkable as visualized. No mastoid effusion. Vertebrae: Unremarkable. No acute fracture. Normal alignment. Discs/spinal canal/neural foramina: No acute findings. No spinal canal stenosis. Soft tissues: Unremarkable. IMPRESSION: No acute intracranial abnormality. No acute findings in the cervical spine. Electronically signed by: Amrik Gonzalez MD 01/17/2022 6:27 AM BOWL TURNER Due to temporary technical issues with the PACS/Fluency reporting system, reports are being signed by the in house radiologists without review as a courtesy to insure prompt reporting. The interpreting radiologist is fully responsible for the content of the report.
--- NOTE | 2022-01-17 15:57 | RAD REPORT ---
EXAM DESCRIPTION: CT - Thoracic Spine W/o Cont - 01/17/2022 6:54 am CLINICAL HISTORY: The patient is 46 years old and is Female; fall, pain TECHNIQUE: Axial computed tomography images of the thoracic spine without intravenous contrast. Sa gittal and coronal reformatted images were created and reviewed. This CT exam was performed using o ne or more of the following dose reduction techniques: automated exposure control, adjustment of th e mA and/or kV according to patient size, and/or use of iterative reconstruction technique. COMPARISON: No relevant prior studies available. FINDINGS: Vertebrae: Unremarkable. No acute fracture. Discs/spinal canal/neural foramina: No acute findings. No spinal canal stenosis. Soft tissues: Unremarkable. * A single impression for all exams can be found at the end of this report EXAM DESCRIPTION: CT Lumbar Spine Without Intravenous Contrast CLINICAL HISTORY: The patient is 46 years old and is Female; fall, pain TECHNIQUE: Axial computed tomography images of the lumbar spine without intravenous contrast. Sagi ttal and coronal reformatted images were created and reviewed. This CT exam was performed using one or more of the following dose reduction techniques: automated exposure control, adjustment of the mA and/or kV according to patient size, and/or use of iterative reconstruction technique. COMPARISON: No relevant prior studies available. FINDINGS: Vertebrae: Unremarkable. No acute fracture. Discs/spinal canal/neural foramina: No acute findings. No spinal canal stenosis. Soft tissues: Unremarkable. * A single impression for all exams can be found at the end of this report IMPRESSION: CT Thoracic Spine Without Intravenous Contrast: No acute fracture or subluxation. CT Lumbar Spine Without Intravenous Contrast: No acute fracture or subluxation. Electronically signed by: Amrik Gonzalez MD 01/17/2022 6:40 AM SCANNING TECH Due to temporary technical issues with the PACS/Fluency reporting system, reports are being signed by the in house radiologists without review as a courtesy to insure prompt reporting. The interpreting radiologist is fully responsible for the content of the report.
--- NOTE | 2022-01-17 16:01 | RAD REPORT ---
EXAM DESCRIPTION: CT - Spine Lumbar Wo Con - 01/17/2022 6:53 am CLINICAL HISTORY: The patient is 46 years old and is Female; fall, pain TECHNIQUE: Axial computed tomography images of the thoracic spine without intravenous contrast. Sa gittal and coronal reformatted images were created and reviewed. This CT exam was performed using o ne or more of the following dose reduction techniques: automated exposure control, adjustment of th e mA and/or kV according to patient size, and/or use of iterative reconstruction technique. COMPARISON: No relevant prior studies available. FINDINGS: Vertebrae: Unremarkable. No acute fracture. Discs/spinal canal/neural foramina: No acute findings. No spinal canal stenosis. Soft tissues: Unremarkable. * A single impression for all exams can be found at the end of this report EXAM DESCRIPTION: CT Lumbar Spine Without Intravenous Contrast CLINICAL HISTORY: The patient is 46 years old and is Female; fall, pain TECHNIQUE: Axial computed tomography images of the lumbar spine without intravenous contrast. Sagi ttal and coronal reformatted images were created and reviewed. This CT exam was performed using one or more of the following dose reduction techniques: automated exposure control, adjustment of the mA and/or kV according to patient size, and/or use of iterative reconstruction technique. COMPARISON: No relevant prior studies available. FINDINGS: Vertebrae: Unremarkable. No acute fracture. Discs/spinal canal/neural foramina: No acute findings. No spinal canal stenosis. Soft tissues: Unremarkable. * A single impression for all exams can be found at the end of this report IMPRESSION: CT Thoracic Spine Without Intravenous Contrast: No acute fracture or subluxation. CT Lumbar Spine Without Intravenous Contrast: No acute fracture or subluxation. Electronically signed by: Amrik Gonzalez MD 01/17/2022 6:40 AM AIRLINE DISPATCHER Due to temporary technical issues with the PACS/Fluency reporting system, reports are being signed by the in house radiologists without review as a courtesy to insure prompt reporting. The interpreting radiologist is fully responsible for the content of the report.
== END 2022-01-17 07:02 | disposition home or self-care (01) ==
LOC: ER 04:57
DX: S06.0X1A Concussion with loss of consciousness of 30 minutes or less, initial encounter (principal); N39.0 Urinary tract infection, site not specified; M54.9 Dorsalgia, unspecified; F17.210 Nicotine dependence, cigarettes, uncomplicated; Z88.2 Allergy status to sulfonamides; Z88.5 Allergy status to narcotic agent; Z88.8 Allergy status to other drugs, medicaments and biological substances
CPT/HCPCS: 72131; 70450; 72125; 72128; Q0169; 99283